=== PATIENT | male | born 1960 | race Caucasian/White ===

== ENCOUNTER 2019-10-10 07:27 | Outpatient (CLI) | payer OTHER, SELFPAY ==
--- NOTE | ~2019-10-10 | MR_ITS ---
EXAMINATION: MR cervical spine wo con EXAM DATE: 10/10/2019 09:00 INDICATION: Right shoulder, arm pain. TECHNIQUE: Multi-sequential, multiplanar MR images of the cervical spine were obtained without contra st. Axial T2, axial T2 MERGE sequence. Sagittal T1, T2, T2 fat saturation images also obtained. Th ere is no prior study for comparison. FINDINGS: There is moderate disc disease C4-5 and 5-6 with reversal normal cervical doses at this le mirna. The vertebral body and disc heights are otherwise well maintained. The vertebral bodies are alig christina in the AP dimension. There are no suspicious marrow signal abnormalities. The spinal cord signal intensity and intrinsic morphology is normal. Cervicomedullary junction is normal in appearance. Para spinal soft tissue is unremarkable. Level by level evaluation: C2-C3: Disc does not extend beyond the endplate margin. Uncovertebral joint arthropathy: None. Facet joint arthropathy: Mild left. Neural foraminal stenosis: No stenosis. Central canal stenosis: No stenosis. C3-C4: Disc does not extend beyond the endplate margin. Uncovertebral joint arthropathy: Mild bilateral. Facet joint arthropathy: Mild bilateral. Neural foraminal stenosis: Mild left. Central canal stenosis: No stenosis. C4-C5: There is a mild diffuse disc bulge. Uncovertebral joint arthropathy: Moderate bilateral. Facet joint arthropathy: Moderate bilateral. Neural foraminal stenosis: Moderate right, mild to moderate left. Central canal stenosis: Mild. C5-C6: There is a mild diffuse disc bulge. Uncovertebral joint arthropathy: Moderate right, mild to moderate left. Facet joint arthropathy: Mild to moderate bilateral. Neural foraminal stenosis: Moderate right, mild to moderate left. Central canal stenosis: Mild. C6-C7: There is a mild diffuse disc bulge. Uncovertebral joint arthropathy: Mild to moderate left, mild right. Facet joint arthropathy: Mild bilateral. Neural foraminal stenosis: No stenosis. Central canal stenosis: No stenosis. C7-T1: Disc does not extend beyond the endplate margin. Uncovertebral joint arthropathy: Mild bilateral. Facet joint arthropathy: None. Neural foraminal stenosis: No stenosis. Central canal stenosis: No stenosis. IMPRESSION: 1. Moderate midcervical spondylosis. Reviewed, dictated and finalized at location A.
--- NOTE | ~2019-10-10 | XR_ITS ---
XR foot RT min 3V DATE: 10/10/2019 07:50 INDICATION: Right foot pain. Great toe pain. TECHNIQUE: 4 views COMPARISON: 10/24/2018 right great toe 07/25/2009 right ankle FINDINGS: There is old healed fracture of the distal fibular diametaphysis. There is an old healed av ulsion fracture of the proximal phalange of the great toe. Plantar and posterior calcaneal enthesopathy. Chronic dorsal avulsion fracture of the cuneiform area, not present on 07/25/2009. Prominent degenerative changes at the tarsal and tarsometatarsal joints, particularly the second and third tarsometatarsal joints. No recent fracture or dislocation, periosteal reaction or bone destruction is noted otherwise. IMPRESSION: Old distal fibular and first proximal phalanx fractures. Chronic dorsal avulsion fracture of the tarsal area Prominent degenerative changes of the tarsal and tarsometatarsal joints Plantar and posterior calcaneal enthesopathy Reviewed, dictated and finalized at location A. IMPRESSION: Old distal fibular and first proximal phalanx fractures. Chronic do rsal avulsion fracture of the tarsal area Prominent degenerative changes of the tarsal and tarsometatarsal joints Plantar and posterior calcaneal enthesopathy
== END 2019-10-10 07:28 | disposition home or self-care (01) ==
PROVIDERS: PCP Family Medicine; Visit Provider Family Medicine
DX: M47.22 Other spondylosis with radiculopathy, cervical region (principal); M77.31 Calcaneal spur, right foot
CPT/HCPCS: 72141; 73630

== ENCOUNTER 2019-11-28 22:00 | Emergency (ER) | payer OTHER, SELFPAY ==
--- NOTE | ~2019-11-28 | XR_ITS ---
EXAMINATION: XR foot RT min 3V EXAM DATE: 11/28/2019 22:37 INDICATION: Right foot pain, swelling. TECHNIQUE: Right foot dorsoplantar, lateral and oblique projections obtained and reviewed. Compariso n is made to prior examination from 10/10/2019 . FINDINGS: There is redemonstration of advanced degenerative changes centered at the second-fourth ta rsometatarsal joints without osseous erosions, reactive sclerosis, bony proliferation and soft tissue swelling. There is lateral subluxation of the second metatarsal base at the Lisfranc joint, new comp ared to last month. Appearance consistent with Charcot's joint, possibly related to old Lisfranc join t injury. There is swelling over the foot. Consider orthopedic consult. IMPRESSION: Advanced right mid foot arthritic change most consistent with Charcot's joint, and develo pment of second metatarsal lateral subluxation at the Lisfranc joint. Recommend orthopedic consult. Reviewed, dictated and finalized at location A. IMPRESSION: Advanced right mid foot arthritic change most consistent with Charc ot's joint, and development of second metatarsal lateral subluxation at the Lis franc joint. Recommend orthopedic consult.
[2019-11-28 22:03] VITALS: BP 135/90; PULSE 95; RESP 20; TEMP 36.7; O2SAT 98
--- NOTE | 2019-11-28 22:16 | ED.LOWEXIN ---
HPI - Extremity Injury (Lower) General Chief Complaint: Extremity Injury, Lower Stated Complaint: right foot swollen Time Seen by Provider: 11/28/19 22:08 History of Present Illness HPI Narrative: Pain and swelling in the right foot for the past 4 months. He has had swelling in that leg even further back. told it wa due to his vericose veins. Used to resolve with elevation, now becoming permanent and associated with pain in the foot. He has DM and moderate neuropathy in the feet. No trauma. No eryhtema or wound. Related Data Home Medications Medication Instructions Recorded Confirmed aspirin 81 mg tablet,delayed 81 mg PO DAILY 08/02/19 release insulin detemir U-100 100 unit/mL 80 unit SUB-Q DAILY ml 08/02/19 (3 mL) subcutaneous pen lisinopril 5 mg tablet 5 mg PO DAILY 08/02/19 pantoprazole 40 mg tablet,delayed 40 mg PO QAM 08/02/19 release Allergies Allergy/AdvReac Type Severity Reaction Status Date / Time amoxicillin Allergy Unknown Nausea Verified 10/06/19 10:10 Review of Systems Review of Systems: All systems reviewed & are unremarkable except as noted in HPI and below Constitutional: Constitutional: Denies fever(s) Cardiovascular: Cardiovascular: Denies chest pain Respiratory: Respiratory: Denies dyspnea Neurologic: Denies dizziness, Denies numbness and Denies weakness [facility] Past Medical History Medical History Breathing-related sleep disorder Charcot foot due to diabetes mellitus Degenerative arthritis of cervical spine Foot fracture, left Knee osteoarthritis Left ventricular hypertrophy Surgical History Surgical History History of tonsillectomy Family History Family History Mother Diabetes mellitus, Onset Age: 80 Pancreatic cancer Father Family history of cardiovascular disease, Onset Age: 62 Carcinoma of colon Malignant neoplasm of prostate Hypertension Family history of obesity COPD (chronic obstructive pulmonary disease) Sibling Family history of obesity Malignant neoplasm of prostate Family history of diabetes mellitus in first degree relative Family history of heart disease in male family member before age 55 Grandparent Malignant neoplasm of prostate Social History Social History Smoking status: Former smoker Smoking end date: 07/07/96 Alcohol intake: current Exam Const: General: healthy appearing, no acute distress and alert Orientation/consciousness: patient oriented x3 HENMT: Head: normal to inspection Resp: Effort & Inspection: normal respiratory effort Auscultation: clear to auscultation bilaterally, no rales, no rhonchi and no wheezes Cardio: Jugular venous distension: no JVD Rate: regular rate Rhythm: regular rhythm Skin: General skin exam: normal color Rashes: no rashes Wounds: no wounds Neuro: General: patient oriented x3 and moves all extremities Speech: normal speech Extrem: General: edema right Other: Tenderness and swelling of the left foot. Psych: Appearance: well kempt Affect: normal affect Course Vital Signs Vital signs: Vital Signs Temperature 36.7 C 11/28/19 22:03 Pulse Rate 95 11/28/19 22:03 Respiratory Rate 20 11/28/19 22:03 Blood Pressure 135/90 11/28/19 22:03 Pulse Oximetry 98 11/28/19 22:03 Temperature 36.7 C 11/28/19 22:03 Pulse Rate 92 11/29/19 00:59 Respiratory Rate 20 11/29/19 00:59 Blood Pressure 122/71 11/29/19 00:59 Pulse Oximetry 97 11/29/19 00:59 MDM - Extremity Injury (Lower) MDM Narrative Medical decision making narrative: Case discussed with Dr. Guevara. He feels that the patient is in the acute phase of charcot's foot. He believes that he will need to be placed in a walking boot. Recommends PCP referal after discharge. Me
[2019-11-28 23:06] LABS: Basophils Percent Auto 0.2 % (0.2-1.2); Eosinophils Absolute Auto 0.2 K/mm3 (0-0.3); Eosinophils Percent Auto 4.1 % (0-4.4); Hematocrit 32.3 % (42.0-52.0); Hemoglobin 10.9 g/dL (14.0-18.0); Immature Granulocyte Absolute 0.01 K/mm3 (0.00-0.031); Immature Granulocyte Percent A 0.2 % (0-0.5); Lymphocytes Absolute Auto 1.04 K/mm3 (0.9-3.2); Lymphocytes Percent Auto 22.2 % (18.3-44.2); Mean Corpuscular HGB Conc 33.7 g/dl (32-36); Mean Corpuscular Hemoglobin 31.7 pg (26-34); Mean Corpuscular Volume 93.9 fl (80-100); Mean Platelet Volume 10.6 fl (7.4-10.4); Monocytes Absolute Auto 0.3 K/mm3 (0.1-0.6); Monocytes Percent Auto 7.3 % (2.6-8.5); Neutrophils Absolute Auto 3.1 K/mm3 (1.3-6.7); Platelet Count Result 215 k/mm3 (150-375); Red Blood Count 3.44 M/mm3 (4.6-6.20); Red Cell Distribution Width 13.2 % (11.5-14.5); White Blood Count 4.7 K/mm3 (4.5-10.0)
[2019-11-28 23:23] LABS: Blood Urea Nitrogen 22 mg/dL (9-20); CRP 2.8 mg/dL (<1.0); Calcium 8.6 mg/dL (8.4-10.2); Carbon Dioxide 29 mmol/L (22-30); Chloride 101 mmol/L (98-107); Estimated Glomerular Filt Rate > 60; Glucose 188 mg/dL (75-110); Potassium 4.2 mmol/L (3.4-5.0); Sodium 137 mmol/L (137-145)
[2019-11-28 23:32] LABS: Erythrocyte Sedimentation Rate 80 mm/hr (0-20)
[2019-11-29 00:59] VITALS: BP 122/71; PULSE 92; RESP 20; O2SAT 97
--- NOTE | 2019-11-29 01:00 | PC.NURSE ---
PT REFUSED POST OP SHOES. STATES HE HAS A BOOT AT HOME. DR NEW NOTIFIED
== END 2019-11-29 01:01 | disposition home or self-care (01) ==
PROVIDERS: Emergency Provider Emergency Medicine; PCP Family Medicine
DX: E11.610 Type 2 diabetes mellitus with diabetic neuropathic arthropathy (principal); E11.42 Type 2 diabetes mellitus with diabetic polyneuropathy; Z79.4 Long term (current) use of insulin; Z79.82 Long term (current) use of aspirin; M17.10 Unilateral primary osteoarthritis, unspecified knee; Z87.891 Personal history of nicotine dependence
CPT/HCPCS: 36415; 73630; 80048; 85025; 85652; 86140; 99283

== ENCOUNTER 2019-12-08 16:36 | Observation (INO) | payer OTHER, SELFPAY ==
[2019-12-08] VITALS (7 sets, daily range): BP systolic 76–112; BP diastolic 42–69; PULSE 89–101; RESP 18–20; TEMP 35.8–36.7; O2SAT 96–99; BMI 44.8
--- NOTE | ~2019-12-08 | CT_ITS ---
EXAMINATION: CT brain wo con EXAM DATE: 12/08/2019 18:37 INDICATION: Vertigo. Acute renal failure. TECHNIQUE: Spiral CT of the head was performed without contrast. Axial, coronal and sagittal images were reviewed. The dose-length product (DLP) for this examination was 605.33 mGy-cm. The exposure w as tailored according to patient size, and iterative reconstruction (ASIR) was used as additional dos e reduction technique. There is no prior study for comparison. FINDINGS: There is no acute intraparenchymal hemorrhage. No evidence of intraparenchymal brain mass lesion. No evidence of acute infarction. There is no mass effect or midline shift. The ventricles are normal in size. There are no extra-axial collections. There are no acute calvarial fractures. T he orbits are unremarkable. Soft tissue is unremarkable. The visualized sinuses and mastoid air rabia ls are well aerated. IMPRESSION: 1. Unremarkable head CT examination. Reviewed, dictated and finalized at location A.
--- NOTE | ~2019-12-08 | XR_ITS ---
EXAMINATION: XR chest 2V EXAM DATE: 12/08/2019 17:55 INDICATION: Dizziness, low blood pressure. History of diabetes. TECHNIQUE: Frontal and lateral projections of the chest obtained and reviewed. Comparison is made to prior examination from 09/29/2017. FINDINGS: The lungs are clear. There are no pleural effusions. The cardiomediastinal silhouette is within normal limits. There is no pneumothorax suspected. Mild thoracic scoliosis. IMPRESSION: No acute cardiopulmonary findings. Reviewed, dictated and finalized at location A.
--- NOTE | ~2019-12-08 | CT_ITS ---
EXAMINATION: CT abdomen pelvis wo con EXAM DATE: 12/08/2019 18:37 INDICATION: Acute renal failure. TECHNIQUE: Spiral CT of the abdomen and pelvis was performed without contrast. Axial, coronal and sag ittal images were reviewed. The dose-length product (DLP) for this examination was 1436.71 mGy-cm. The exposure was tailored according to patient size (auto mA exposure control), and iterative reconst ruction (ASIR) was used as additional dose reduction technique. Comparison is made to prior examinati on from 08/26/2013. FINDINGS: There is no nephrolithiasis or hydronephrosis. The prostate is unremarkable. The bladder is unremarkable. The liver, spleen, adrenal glands and pancreas are unremarkable. Gallbladder is u nremarkable. No biliary obstruction. There is no retroperitoneal or pelvic lymphadenopathy. There is mild scattered arteriosclerotic disease. Malrotation/nonrotation spectrum with the colon on the left side of the abdomen and the small bowel o n the right. The appendix is normal. The stomach and small bowel are unremarkable. There is expecte d amount of colonic stool. No free intraperitoneal gas. The heart is normal in size. There are n o pericardial or pleural effusions. The lung bases are unremarkable. Mild chronic compression fract ure of the L3 vertebral body at the superior endplate. Moderate to severe disc disease at L1-2, moder ate at L2-3. IMPRESSION: 1. Unremarkable genitourinary system. 2. Congenital bowel malrotation/nonrotation. Reviewed, dictated and finalized at location A.
--- NOTE | 2019-12-08 17:43 | ECG_ITS ---
Measurements Intervals Cammal Rate: 89 P: 35 VA: 148 QRS: -43 QRSD: 113 T: 50 QT: 342 QTc: 417 Interpretive Statements SINUS RHYTHM LEFT AXIS DEVIATION INTRAVENTRICULAR CONDUCTION DELAY BORDERLINE R WAVE PROGRESSION, ANTERIOR LEADS BORDERLINE ECG Electronically Signed On 12-09-2019 6:54:50 CDT by Anthony Mckeon D.O.
[2019-12-08] MEDS: SODIUM CHLORIDE 0.9% IV 1,000 ML 999 ML IV CONT ×2 (17:59→18:53)
[2019-12-08 18:06] LABS: Basophils Percent Auto 0.3 % (0.2-1.2); Eosinophils Absolute Auto 0.2 K/mm3 (0-0.3); Hematocrit 34.3 % (42.0-52.0); Hemoglobin 11.5 g/dL (14.0-18.0); Immature Granulocyte Absolute 0.02 K/mm3 (0.00-0.031); Immature Granulocyte Percent A 0.3 % (0-0.5); Lymphocytes Absolute Auto 1.21 K/mm3 (0.9-3.2); Lymphocytes Percent Auto 16.7 % (18.3-44.2); Mean Corpuscular HGB Conc 33.5 g/dl (32-36); Mean Corpuscular Hemoglobin 31.6 pg (26-34); Mean Corpuscular Volume 94.2 fl (80-100); Mean Platelet Volume 11.2 fl (7.4-10.4); Monocytes Absolute Auto 0.6 K/mm3 (0.1-0.6); Monocytes Percent Auto 7.7 % (2.6-8.5); Neutrophils Absolute Auto 5.2 K/mm3 (1.3-6.7); Platelet Count Result 264 k/mm3 (150-375); Red Blood Count 3.64 M/mm3 (4.6-6.20); Red Cell Distribution Width 13.3 % (11.5-14.5); White Blood Count 7.2 K/mm3 (4.5-10.0)
--- NOTE | 2019-12-08 18:07 | ED.DIZZY ---
HPI - Dizziness General Chief Complaint: Dizziness <Opal Landin MD - Last Filed: 12/10/19 19:00> Stated Complaint: N/V - Dizzy <Opal Landin MD - Last Filed: 12/10/19 19:00> Time Seen by Provider: 12/08/19 17:54 <Opal Landin MD - Last Filed: 12/10/19 19:00> History of Present Illness HPI Narrative: Patient presents with his daughter for many episodes of dizziness today some associated with nausea and vomiting. He has a history of migraines in the last 3 years, but does not have a headache today. The dizziness is as if there is motion, but also lightheadedness. 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 He tried a fish sandwich for lunch, which did not help. He also has been light sensitive today wearing sunglasses, and feeling like the light was blinding outdoors. He is diabetic and he checked his sugar earlier it was 240. He is suffering from a Charcot foot, and is followed by a foot doctor here at [place]. He is on gabapentin for the pain, yet the pain is 7 out of 10. He has never had trouble with his blood pressure, but today the blood pressure was on the low side. <Opal Landin MD - Last Filed: 12/10/19 19:00> MD elicited complaint: dizziness, lightheadedness and vertigo <Opal Landin MD - Last Filed: 12/10/19 19:00> Pertinent past history: other (None) <Opal Landin MD - Last Filed: 12/10/19 19:00> Onset (ago): hour(s) <Opal Landin MD - Last Filed: 12/10/19 19:00> Timing: awoke with symptoms <Opal Landin MD - Last Filed: 12/10/19 19:00> Severity: moderate <Opal Landin MD - Last Filed: 12/10/19 19:00> Description: sense of movement, room spinning , lightheadedness and off-balance <Opal Landin MD - Last Filed: 12/10/19 19:00> Context: at rest <Opal Landin MD - Last Filed: 12/10/19 19:00> History of similar symptoms: No <Opal Landin MD - Last Filed: 12/10/19 19:00> Exacerbating factors: movement/ambulation <Opal Landin MD - Last Filed: 12/10/19 19:00> Relieving factors: nothing <Opal Landin MD - Last Filed: 12/10/19 19:00> Associated symptoms: nausea and vomiting <Opal Landin MD - Last Filed: 12/10/19 19:00> Associated neuro symptoms: vision changes <Opal Landin MD - Last Filed: 12/10/19 19:00> Related Data Home Medications: Home Medications Medication Instructions Recorded Confirmed insulin detemir U-100 100 unit/mL See Rx Instructions .ROUTE 08/02/19 12/08/19 (3 mL) subcutaneous pen .COMPLEX ml pantoprazole 40 mg tablet,delayed 40 mg PO QAM 08/02/19 12/08/19 release <Opal Landin MD - Last Filed: 12/10/19 19:00> Allergies/Adverse Reactions: Allergies Allergy/AdvReac Type Severity Reaction Status Date / Time amoxicillin AdvReac Unknown Nausea Verified 12/08/19 22:43 <Opal Landin MD - Last Filed: 12/10/19 19:00> Review of Systems Review of Systems: Narrative: CONSTITUTIONAL: Denies fever, chills, or sweats. EYES: Denies redness, or discharge. Does have photophobia, and visual changes. ENT: Denies rhinorrhea, congestion, sore throat, or otalgia. CARDIOVASCULAR: Denies chest pain, palpitations, or edema. RESPIRATORY: Denies cough or dyspnea. GASTROINTESTINAL: Denies abdominal pain, nausea, vomiting, or diarrhea. GENITOURINARY: Denies dysuria or hematuria. SKIN: Denies rash or itching. MUSCULOSKELETAL: Denies back pain, joint pain, or myalgia. He does have foot pain. NEUROLOGIC: Denies headache, numbness, or weakness. PSYCHIATRIC: Denies anxiety or depression. <Opal Landin MD - Last Filed: 12/10/19 19:00> PMFSH Past Medical History Medical History: Medical History Anemia Charcot foot due to diabetes mellitus Charcot's joint arthropathy in type 2 diabetes mellitus Degenerative arthritis of cervical spine On diclofenac Diabetic autonomic neuropathy as
[2019-12-08 18:17] LABS: Alanine Aminotransferase 14 U/L (4-50); Albumin Level 4.8 g/dL (3.5-5.1); Alkaline Phosphatase 116 U/L (38-126); Aspartate Amino Transferase 21 U/L (17-59); Bilirubin,Total 0.4 mg/dL (0.2-1.3); Blood Urea Nitrogen 61 mg/dL (9-20); Calcium 9.5 mg/dL (8.4-10.2); Carbon Dioxide 22 mmol/L (22-30); Chloride 99 mmol/L (98-107); Estimated CRCL calculation 29 ml/min; Estimated Glomerular Filt Rate 19; Glucose 150 mg/dL (75-110); Potassium 5.9 mmol/L (3.4-5.0); Sodium 135 mmol/L (137-145)
[2019-12-08] MEDS: METOCLOPRAMIDE HCL INJ 10 MG/2 ML VIAL IV PUSH (18:21)
[2019-12-08 18:42] LABS: NT Pro B Type Natriuretic Pept 38 PG/ML (5-100); Troponin I < 0.012 ng/mL (0.000-0.034)
[2019-12-08 18:50] LABS: Blood Urea Nitrogen 61 mg/dL (9-20); Calcium 9.6 mg/dL (8.4-10.2); Carbon Dioxide 23 mmol/L (22-30); Chloride 99 mmol/L (98-107); Estimated CRCL calculation 29 ml/min; Estimated Glomerular Filt Rate 19; Glucose 154 mg/dL (75-110); Potassium 5.9 mmol/L (3.4-5.0); Sodium 134 mmol/L (137-145)
[2019-12-08 19:33] LABS: Blood Urea Nitrogen 59 mg/dL (9-20); Calcium 8.5 mg/dL (8.4-10.2); Carbon Dioxide 22 mmol/L (22-30); Chloride 102 mmol/L (98-107); Estimated CRCL calculation 30 ml/min; Estimated Glomerular Filt Rate 20; Glucose 155 mg/dL (75-110); Potassium 5.6 mmol/L (3.4-5.0); Sodium 134 mmol/L (137-145)
[2019-12-08] MEDS: SODIUM CHLORIDE 0.9% IV 1,000 ML 150 ML IV CONT (20:16)
[2019-12-08 20:17] LABS: Blood Urea Nitrogen 59 mg/dL (9-20); Calcium 8.8 mg/dL (8.4-10.2); Carbon Dioxide 22 mmol/L (22-30); Chloride 102 mmol/L (98-107); Estimated CRCL calculation 30 ml/min; Estimated Glomerular Filt Rate 20; Glucose 157 mg/dL (75-110); Potassium 5.6 mmol/L (3.4-5.0); Sodium 134 mmol/L (137-145)
--- NOTE | 2019-12-08 21:31 | ADMGEN ---
This patient, Neil Haines, was admitted to IMU Room 212-01. REPORT RECEIVED FROM ASIF VELARDE. Patient/family oriented to hospital policies and general routines including ID bracelet, bed and alarms, visiting hours, pain management, procedures, bathroom and other care routines, personal items, smoking policy, room service/diet, and visiting hours. Valuables list has been completed. Information on how to activate the Rapid Response Team has been discussed. Patient/Family are encouraged to report perceived risks to care and to ask questions if they do not understand what they are told or what they should do.
[2019-12-09] VITALS (11 sets, daily range): BP systolic 117–150; BP diastolic 48–94; PULSE 79–98; RESP 16–18; TEMP 35.7–36.6; O2SAT 96–99
--- NOTE | 2019-12-09 04:07 | PM.IMHP ---
H&P: HPI History of Present Illness Chief complaint: Dizziness Narrative: Date and time of patient contact: 12/09/2019 Neil Haines is a 59 year old male with a past medical history of diabetes mellitus on insulin therapy, hypertension, obstructive sleep apnea, and peripheral neuropathy who presented to the ER via private vehicle due to dizziness nausea and vomiting. He reported that the sensation of movement iin his head started on the morning of the . He has noticed lightheadedness even just with standing still. He has also notices blood pressure has been lower than usual. He reports that he felt fine on the . He does have Charcot joint and his right foot and complains of chronic pain. His pain is a 7/10 in intensity. He has been taking diclofenac and Neurontin for the pain. He also has been taken out [id number] arthritis pill twice a day for the last 3-4 weeks. He does not know the name of the [id number]-[id number] arthritis pill. He reports that he has still been urinating his usual amount. He has not noticed his urine being dark. He reports that he tries to stay well hydrated with 2 large cups of tea, water and soda. 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 He does still tend to sweat a lot. He denies any recent changes in his home medications. He denies any diarrhea, hematochezia, melena or changes in bowel habits. He has never had a colonoscopy. he does have obstructive sleep apnea and has been fighting with his insurance company to get a CPAP. His last sleep study within our system was July 2015 and recommended CPAP of 14. He denies any recent cough, congestion, fever, chills or recent contact with COVID-19 positive individuals. The patient's glucoses have been better controlled recently. He was started on Ozempic a couple of months ago. Since that time his overall insulin use has decreased. He has lost over 20 lb. Review of Systems Review of Systems: Narrative: 12 systems were reviewed with pertinent positives and negatives per HPI. Except as documented in the HPI, all other systems were reviewed and are negative. [facility] Past Medical History Medical History Anemia Charcot foot due to diabetes mellitus Charcot's joint arthropathy in type 2 diabetes mellitus Degenerative arthritis of cervical spine On diclofenac Diabetic autonomic neuropathy associated with type 2 diabetes mellitus Diabetic retinopathy associated with type 2 diabetes mellitus Foot fracture, left Hyponatremia Knee osteoarthritis Left ventricular hypertrophy Morbid obesity with BMI of 45.0-49.9, adult Obstructive sleep apnea Sleep study June 2015 recommended CPAP of 14 Other and unspecified hyperlipidemia Surgical History Surgical History H/O wisdom tooth extraction History of circumcision History of tonsillectomy Family History Family History Mother Diabetes mellitus, Onset Age: 80 Pancreatic cancer Father Carcinoma of colon Malignant neoplasm of prostate Hypertension COPD (chronic obstructive pulmonary disease) Cardiovascular disease Obesity Sibling Family history of obesity Malignant neoplasm of prostate Diabetes mellitus Cardiovascular disease Premature Grandparent Malignant neoplasm of prostate Social History Social History (Updated 12/09/19 @ 07:53 by Daphne Blevins DO) Social History: Primary care provider: Dr. Elias Montalvo Code status: Full code Advanced directives: None Smoking packs per day: 2 Smoking cigarettes per day: 40.0 Years smoked: 20 Smoking pack-years: 40.00 Smoking status: Former smoker Tobacco type: cigarettes Smoking end date: 12/05/97 Alcohol intake: current Drinks per week: 1 Alcohol use detail
[2019-12-09 05:00] LABS: Blood Urea Nitrogen 45 mg/dL (9-20); Calcium 8.4 mg/dL (8.4-10.2); Carbon Dioxide 24 mmol/L (22-30); Chloride 107 mmol/L (98-107); Estimated CRCL calculation 50 ml/min; Estimated Glomerular Filt Rate 37; Glucose 144 mg/dL (75-110); Potassium 5.2 mmol/L (3.4-5.0); Sodium 136 mmol/L (137-145)
[2019-12-09 06:46] LABS: Add Urine Microscopic? NO; Appearance Urine Clear (Clear); Bilirubin Urine Negative (Negative); Blood Urine Negative (Negative); Color Urine Straw (Yellow); Glucose Urine UA Negative (Negative); Ketones Urine Negative (Negative); Leukocyte Esterase Ur Negative LEU/UL (Negative); Nitrate Urine Negative (Negative); Protein Urine Negative (Negative); Specific Grav Ur 1.014 (1.001-1.035); Urobilinogen Urine Negative mg/dL (<2.0)
[2019-12-09 06:54] LABS: Creatinine Urine 67.1 mg/dL; Urea Random Urine 687 MG/DL
[2019-12-09 07:00] LABS: Potassium Urine Random 15.8 meq/L; Sodium Urine Random 127 meq/L
--- NOTE | 2019-12-09 07:27 | PM.CNNEP ---
Assessment and Plan Assessment and plan (1) Acute renal failure: Qualifiers: Acute renal failure type: unspecified Qualified Code(s): N17.9 - Acute kidney failure, unspecified Code(s): N17.9 - Acute kidney failure, unspecified Status: Acute Assessment and Plan: The patient has acute kidney injury. His creatinine was normal on 11/27 when he was in the emergency room for his Charcot foot. There are several issues that are related to his renal failure. The patient was dehydrated. His blood pressure was low. He is on diuretics as an outpatient and it has suddenly become much warmer outside. 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 Possibly he does not need as much diuretics in the summer is he does in the winter because of perspiration. In addition the patient was on diclofenac and also possibly another nonsteroidal anti-inflammatory agent that he purchased [id number]. This also may have added to the renal insufficiency. The patient does have diabetes and high blood pressure and so could have underlying mild FX of this on a long-term basis. Urine protein to creatinine ratio is pending. His urine sodium is not low, most likely due to the diuretics. At this point I would continue IV fluids. His creatinine is already a little bit better. He is off of his nonsteroidal anti-inflammatory agent. His metformin is on hold. This should remain on hold until his kidneys are better. His bicarbonate is normal and his anion gap is normal. (2) Acute hyperkalemia: Code(s): E87.5 - Hyperkalemia Status: Acute Assessment and Plan: Potassium is high most likely due to the renal failure and also the nonsteroidal anti-inflammatory agents. This is improving with hydration. (3) Acute hypotension: Code(s): I95.9 - Hypotension, unspecified Status: Acute Assessment and Plan: Blood pressure is low due to dehydration. Diuretics are on hold. (4) Anemia: Code(s): D64.9 - Anemia, unspecified Status: Acute Assessment and Plan: Hemoglobin is low. Depending on how long it is taken for his kidneys to get like this this smear may not be due to the kidneys. Will check iron levels. (5) Hyponatremia: Code(s): E87.1 - Hypo-osmolality and hyponatremia Status: Acute Assessment and Plan: Sodium level is low. This could be related to his dehydration. He is on duloxetine which can cause low sodium as well, however his sodium was normal in November and he was on duloxetine at the time.. We will follow this along as he gets hydrated. History of Present Illness Reason for Consult Consult date: 12/09/19 Chief Complaint Chief complaint: Dizziness History of Present Illness Narrative: Neil is a very pleasant 59-year-old gentleman who has multiple medical problems including diabetes,, sleep apnea, peripheral neuropathy, Scharff: Stooling to on the right, degenerative joint disease, left ventricular hypertrophy, morbid obesity, hyperlipidemia. The patient historically has had very poor control of his diabetes. His A1cs were as high as 12. He decided to take some insulin in the past few months and his A1c dropped to about 8. . Recently he changed from trulicity to ozempic and his sugars have improved quite a bit. He does have significant arthritis. He has been taking diclofenac. A few weeks ago the patient's brought home some mmuo-[id number] arthritis pills but he cannot remember the name of these. He started taking them and his arthritis has been a little bit better. Yesterday the patient woke up and felt lightheaded. There was no vertigo. He also had some nausea. He went to work without eating any breakfast. He had a couple of donuts mid morning but that did not make him feel better. The knee had a FISH sandwich from [employer] but that did not make him feel any better. In the middle of the afternoon he decided that he
[2019-12-09 07:39] LABS: Total Protein Urine Random 11 mg/dL
[2019-12-09 08:20] LABS: Glucose Point of Care 152 (65-105)
[2019-12-09] MEDS: SODIUM CHLORIDE 0.9% IV 1,000 ML 100 ML IV CONT ×2 (08:30→18:27)
[2019-12-09] MEDS: ATORVASTATIN 20 MG TABLET PO (08:40)
[2019-12-09] MEDS: PANTOPRAZOLE 40 MG TABLET PO (08:40)
[2019-12-09] MEDS: HEPARIN SODIUM 5,000 UNITS/ML VIAL 5000 UNITS SUB-Q ×2 (08:42→20:44)
[2019-12-09] MEDS: DULOXETINE 60 MG CAPSULE.DR PO (08:42)
[2019-12-09] MEDS: INSULIN ASPART (*BKC) 100 UNITS/ML 15 UNITS SUB-Q (08:51)
[2019-12-09 12:27] LABS: Glucose Point of Care 109 (65-105)
--- NOTE | 2019-12-09 16:21 | PM.IMPN ---
Progress Note: A&P Assessment and Plan (1) Acute renal failure: Qualifiers: Acute renal failure type: unspecified Qualified Code(s): N17.9 - Acute kidney failure, unspecified Code(s): N17.9 - Acute kidney failure, unspecified Status: Acute Assessment and Plan: Likely due to a combination of diuretic use, NSAID use (both prescribed and [id number]) and hypovolemia due to vomiting. Given that the patient has peripheral neuropathy and diabetic retinopathy would not be surprised to find that the patient had diabetic nephropathy. Continue IV fluid hydration. Creatinine this a.m. already down to 1.9, no obstruction or renal problems seen on CT. Continue holding the patient's home metformin, Ozempic, lisinopril, diclofenac and Lasix. (2) Acute hyperkalemia: Code(s): E87.5 - Hyperkalemia Status: Acute Assessment and Plan: Due to decreased potassium excretion. Patient has been placed on a low-potassium diet. Potassium has trended down with simple IV fluid hydration. Potassium 5.2 this a.m.. (3) Diabetes mellitus with complication: Code(s): E11.8 - Type 2 diabetes mellitus with unspecified complications Status: Acute Assessment and Plan: The patient's home metformin, and Ozempic happen placed on hold. Will continue Levemir, mealtime bolus insulin and will add moderate dose sliding scale insulin and Accu-Cheks a.c. HS. The patient's glucoses appear to be well controlled since presentation. And A1c. 7.0 (4) DVT prophylaxis: Code(s): Z29.9 - Encounter for prophylactic measures, unspecified Status: Acute Assessment and Plan: Subcu heparin with renal failure Subjective Date/time seen: 12/09/19 16:21 Interval history: Date of visit 12/08. 59-year-old hypertensive type 2 diabetic admitted and acute renal failure with hyperkalemia. Been taking diuretics and nonsteroidals. States feels better this a.m. with no nausea shortness of breath cough. Exam Narrative: Exam Narrative: Blood pressure 130/60 pulse is 86 saturating 98% on room air afebrile Lungs clear CV regular rate rhythm no murmurs Abdomen soft nontender Extremities trace edema 1+ distal pulses Neuro alert pleasant cooperative no focal deficits Objective Data Vital Signs Vital Signs: Vital Signs - 24 hr 12/08/19 16:40 12/08/19 18:40 12/08/19 18:41 Temperature 36.7 C Pulse Rate 100 92 101 H Respiratory Rate 18 20 20 Blood Pressure 96/69 L 93/52 L 76/55 L Pulse Oximetry 98 99 99 12/08/19 19:44 12/08/19 21:00 12/08/19 21:14 Temperature 35.8 C L Pulse Rate 89 97 Respiratory Rate 18 Blood Pressure 101/42 L 104/51 L Pulse Oximetry 98 12/08/19 23:27 12/09/19 00:00 12/09/19 04:02 Temperature 36.2 C L Pulse Rate 89 85 84 Respiratory Rate 18 Blood Pressure 112/48 L Pulse Oximetry 96 12/09/19 04:09 12/09/19 06:00 12/09/19 08:00 Temperature 36.1 C L 35.7 C L Pulse Rate 79 85 84 Respiratory Rate 18 16 Blood Pressure 117/48 L 129/60 Pulse Oximetry 96 98 12/09/19 10:00 12/09/19 12:00 12/09/19 14:00 Temperature Pulse Rate 95 79 98 Respiratory Rate Blood Pressure Pulse Oximetry Intake/Output Intake/Output: Intake & Output 12/06/19 12/07/19 12/08/19 12/09/19 23:59 23:59 23:59 23:59 Intake Total 1999 1779 Output Total 225 2100 Balance 1775 -320 Meds/Results Medications: Active Medications Generic Name Dose Route Start Last Admin Trade Name Freq PRN Reason Stop Dose Admin Acetaminophen 650 mg 12/08/19 19:20 Tylenol Tablet PO Q4H PRN Mild Pain (1-3) or Fever Atorvastatin Calcium 20 mg 12/09/19 09:00 12/09/19 08:40 Lipitor PO 20 mg DAILY NOLA Administration Dextrose 12.5 gm 12/09/19 03:59 Dextrose 50% Syringe IV PUSH PRN PRN Hypoglycemia Protocol Duloxetine HCl 60 mg 12/09/19 09:00 12/09/19 08:42 Cymbalta PO 60 mg DAILY NOLA Admin
[2019-12-09 17:33] LABS: Glucose Point of Care 176 (65-105)
[2019-12-09 19:05] LABS: Glucose Point of Care 189 (65-105)
[2019-12-09] MEDS: INSULIN DETEMIR 100 UNITS/ML 15 UNITS SUB-Q (20:44)
--- NOTE | 2019-12-09 20:45 | PC.NURSE ---
Pt's blood glucose 231. Administered Levemir per MD order. Pt states he does not take more than 15 units of insulin at a time. Pt states that even though the Levemir is long acting, he does not want to take additional Novolog if ordered by physician this evening.
[2019-12-09 21:23] LABS: Glucose Point of Care 231 (65-105)
[2019-12-09] MEDS: TRAZODONE HCL 50 MG TABLET 150 MG PO (22:56)
[2019-12-10] VITALS: BP 127/73; PULSE 95; RESP 18; TEMP 36.3; O2SAT 99
[2019-12-10 02:50] LABS: Glucose Point of Care 162 (65-105)
[2019-12-10 03:54] VITALS: BP 109/65; PULSE 91; RESP 18; TEMP 36.2; O2SAT 97
[2019-12-10] MEDS: SODIUM CHLORIDE 0.9% IV 1,000 ML 100 ML IV CONT (04:00)
[2019-12-10 04:54] LABS: Albumin Level 3.7 g/dL (3.5-5.1); Blood Urea Nitrogen 19 mg/dL (9-20); Calcium 8.8 mg/dL (8.4-10.2); Carbon Dioxide 26 mmol/L (22-30); Chloride 104 mmol/L (98-107); Estimated CRCL calculation 92 ml/min; Estimated Glomerular Filt Rate > 60; Glucose 168 mg/dL (75-110); Phosphorus 3.2 mg/dL (2.5-4.5); Potassium 5.7 mmol/L (3.4-5.0); Sodium 136 mmol/L (137-145)
[2019-12-10 08:00] VITALS: BP 129/63; PULSE 94; RESP 20; TEMP 36.6; O2SAT 98
[2019-12-10 08:36] LABS: Glucose Point of Care 183 (65-105)
[2019-12-10] MEDS: SODIUM POLYSTYRENE SULFONONATE 15 GM/60 ML BTL PO ×2 (08:50→15:19)
[2019-12-10] MEDS: DULOXETINE 60 MG CAPSULE.DR PO (08:51)
[2019-12-10] MEDS: PANTOPRAZOLE 40 MG TABLET PO (08:51)
[2019-12-10] MEDS: ATORVASTATIN 20 MG TABLET PO (08:51)
[2019-12-10] MEDS: HEPARIN SODIUM 5,000 UNITS/ML VIAL 5000 UNITS SUB-Q (08:54)
[2019-12-10] MEDS: INSULIN ASPART (*BKC) 100 UNITS/ML 15 UNITS SUB-Q ×2 (08:56→12:37)
--- NOTE | 2019-12-10 11:37 | PM.PNNEP ---
Progress Note: A&P Assessment and Plan (1) Acute renal failure: Qualifiers: Acute renal failure type: unspecified Qualified Code(s): N17.9 - Acute kidney failure, unspecified Code(s): N17.9 - Acute kidney failure, unspecified Status: Acute Assessment and Plan: The patient has acute kidney injury. Urine electrolytes are Non pre renal. CT shows no evidence of obstruction. This has rapidly improved. There are several factors causing his renal failure. 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 He was of course on diclofenac and in a over the counter nonsteroidal anti-inflammatory agent. I think he ought to stay off the nonsteroidal anti-inflammatory agents. If he takes Lasix he should only take it as needed for swelling instead of taking it every day. (2) Acute hyperkalemia: Code(s): E87.5 - Hyperkalemia Status: Acute Assessment and Plan: Potassium is a little high today. He received Kayexalate and we can repeat. He should get blood work on Friday. (3) Acute hypotension: Code(s): I95.9 - Hypotension, unspecified Status: Acute Assessment and Plan: Blood pressure is back up. (4) Anemia: Code(s): D64.9 - Anemia, unspecified Status: Acute Assessment and Plan: Hemoglobin is low. Depending on how long it is taken for his kidneys to get like this this smear may not be due to the kidneys. Hemoglobin improving. (5) Hyponatremia: Code(s): E87.1 - Hypo-osmolality and hyponatremia Status: Acute Assessment and Plan: Sodium level is low. This could be related to his dehydration. And diuretics. The level is improving. Subjective Date/time seen: 12/10/19 11:37 Interval history: Patient is alert. He feels better. He says that he is on Lasix because his feet swell at times. 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 Review of Systems Cardiovascular: Cardiovascular: Reports no additional cardiovascular complaints Respiratory: Respiratory: Reports no additional respiratory complaints Gastrointestinal: Gastrointestinal: Reports no additional gastrointestinal complaints Genitourinary: Genitourinary: Reports no additional male genitourinary complaints Exam Narrative: Exam Narrative: WDWN in NAD skin no rash head ncat lungs clear cor reg no rub abd BS+ nontender and soft ext no edema. Objective Data Vital Signs Vital Signs: Vital Signs - 24 hr 12/09/19 12:00 12/09/19 14:00 12/09/19 16:00 Temperature 36.6 C Pulse Rate 79 98 98 Respiratory Rate 18 Blood Pressure 150/94 H Pulse Oximetry 98 12/09/19 18:00 12/09/19 19:53 12/10/19 00:00 Temperature 36.2 C L 36.3 C L Pulse Rate 94 93 95 Respiratory Rate 18 18 Blood Pressure 119/58 L 127/73 Pulse Oximetry 99 99 12/10/19 03:54 12/10/19 08:00 Temperature 36.2 C L 36.6 C Pulse Rate 91 94 Respiratory Rate 18 20 Blood Pressure 109/65 129/63 Pulse Oximetry 97 98 Intake/Output Intake/Output: Intake & Output 12/07/19 12/08/19 12/09/19 12/10/19 23:59 23:59 23:59 23:59 Intake Total 1999 4654 1740 Output Total 225 2800 3450 Balance 1775 1870 -1710 Meds/Results Medications: Active Medications Generic Name Dose Route Start Last Admin Trade Name Freq PRN Reason Stop Dose Admin Acetaminophen 650 mg 12/08/19 19:20 Tylenol Tablet PO Q4H PRN Mild Pain (1-3) or Fever Atorvastatin Calcium 20 mg 12/09/19 09:00 12/10/19 08:51 Lipitor PO 20 mg DAILY NOLA Administration Dextrose 12.5 gm 12/09/19 03:59 Dextrose 50% Syringe IV PUSH PRN PRN Hypoglycemia Protocol Duloxetine HCl 60 mg 12/09/19 09:00 12/10/19 08:51 Cymbalta PO 60 mg DAILY NOLA Administration Glucagon 1 mg 12/09/19 03:59 Glucagon For Inj IM PRN PRN Hypoglycemia Protocol Glu
[2019-12-10 12:20] LABS: Glucose Point of Care 180 (65-105)
[2019-12-10 14:05] LABS: Blood Urea Nitrogen 15 mg/dL (9-20); Calcium 8.7 mg/dL (8.4-10.2); Carbon Dioxide 27 mmol/L (22-30); Chloride 101 mmol/L (98-107); Estimated CRCL calculation 101 ml/min; Estimated Glomerular Filt Rate > 60; Glucose 196 mg/dL (75-110); Potassium 5.4 mmol/L (3.4-5.0); Sodium 134 mmol/L (137-145)
--- NOTE | 2019-12-10 15:59 | PC.NURSE ---
Discharge instructions reviewed in detail with patient including outpatient labwork and follow up with PCP. Pt. verbalized understanding, no questions at this time.
--- NOTE | 2019-12-11 18:34 | PM.DS ---
DS: Admitting Diagnosis Admitting Diagnosis Admitting Diagnosis: Acute kidney failure, unspecified DS: Discharge Diagnosis Discharge Diagnosis (1) Acute renal failure: Qualifiers: Acute renal failure type: unspecified Qualified Code(s): N17.9 - Acute kidney failure, unspecified Code(s): N17.9 - Acute kidney failure, unspecified Status: Acute Assessment and Plan: Likely due to a combination of diuretic use, NSAID use (both prescribed and [id number]) and hypovolemia due to vomiting. Given that the patient has peripheral neuropathy and diabetic retinopathy would not be surprised to find that the patient had diabetic nephropathy. Creatinine this a.m. already down to 0.9 at discharge, no obstruction or renal problems seen on CT. Continue holding the patient's lisinopril and diclofenac on discharge Resume Lasix and metformin (2) Acute hyperkalemia: Code(s): E87.5 - Hyperkalemia Status: Acute Assessment and Plan: Due to decreased potassium excretion. Patient has been placed on a low-potassium diet. Potassium has trended down with simple IV fluid hydration. Date of discharge potassium up to 5.7 was given Kayexalate and decreased to 5.4. Was given another dose Kayexalate and able to be discharged home off his MIKE-inhibitor. Will resume his diuretic Lasix daily and have a basic metabolic profile drawn on the (3) Diabetes mellitus with complication: Code(s): E11.8 - Type 2 diabetes mellitus with unspecified complications Status: Acute Assessment and Plan: The patient's home metformin, and Ozempic happen placed on hold while inpatient but restarted on discharge. Will continue Levemir, mealtime bolus insulin as before The patient's glucoses appear to be well controlled since presentation. And A1c. 7.0 (4) DVT prophylaxis: Code(s): Z29.9 - Encounter for prophylactic measures, unspecified Status: Acute Assessment and Plan: Subcu heparin with renal failure while an inpatient DS: Summary Hospital Course Hospital Course: 59-year-old hypertensive type 2 diabetic admitted with dehydration acute renal failure. Was hydrated aggressively with holding off his metformin, nonsteroidal anti-inflammatories, and MIKE-inhibitor. On at regime his creatinine fell to 0.9 the day of discharge. Potassium still mildly elevated 5.4 and MIKE-inhibitor will be continued to be held with resumption of his Lasix. He will have basic metabolic profile drawn on the 8th. Seen by Nephrology while here Medications will be the same without the diclofenac and MIKE-inhibitor with the persistently elevated potassium Time Spent with Patient Time attestation: Total time spent providing and/or coordinating discharge services: 35 minutes Exam Narrative: Exam Narrative: Condition on discharge Blood pressure 130/62 pulse is 94 sat and 98% on room air afebrile Lungs clear CV regular rate rhythm Abdomen is soft nontender Extremities without edema with exception of mild swelling around the right ankle which has been chronic Neuro alert pleasant cooperative no focal deficits Discharge Plan Discharge Attending physician on discharge: Ab Noonan Consulting providers: Terry Chavez Discharging Clinician: Ab Noonan Patient Disposition: Home, Self-Care Activity: as tolerated Diet: diabetic Patient Instructions: Antibiotic Form, Hyperkalemia (DC), End Stage Kidney Disease (ED) Stand Alone Forms: General Discharge Information Follow-up/Referrals: Elias Montalvo MD [Primary Care Provider] - 1 Week Discharge Medications: Continued pantoprazole [Protonix] 40 mg tablet,delayed release (DR/EC) 40 mg PO QAM RF: 0 Levemir FlexTouch U-100 Insuln 100 unit/mL (3 mL) insulin pen See Rx Instructions .ROUTE .COMPLEX RF: 0 duloxetine [Cymbalta] 60 mg capsule,delayed release(DR/EC) 60 mg PO DAILY Qty: 90 RF: 1 Oz
[2019-12-12 04:35] LABS: Osmolality, Urine 532 mOsm/kg (50-1200)
== END 2019-12-10 16:20 | disposition home or self-care (01) ==
LOC: ANHED 19:50 → ANHIMU 23:50
PROVIDERS: Internal Medicine; Internal Medicine Nephrology; Physician Assistant; Admitting Provider Family Medicine; Emergency Provider Emergency Medicine; PCP Family Medicine; Visit Provider Internal Medicine
DX: N17.9 Acute kidney failure, unspecified (principal); E87.5 Hyperkalemia; E87.1 Hypo-osmolality and hyponatremia; E86.0 Dehydration; I95.9 Hypotension, unspecified; I11.9 Hypertensive heart disease without heart failure; E11.43 Type 2 diabetes mellitus with diabetic autonomic (poly)neuropathy; E11.319 Type 2 diabetes mellitus with unspecified diabetic retinopathy without macular edema; E11.610 Type 2 diabetes mellitus with diabetic neuropathic arthropathy; D64.9 Anemia, unspecified; G47.33 Obstructive sleep apnea (adult) (pediatric); E66.01 Morbid (severe) obesity due to excess calories; Z68.41 Body mass index [BMI] 40.0-44.9, adult; M19.90 Unspecified osteoarthritis, unspecified site; E78.49 Other hyperlipidemia; Z79.1 Long term (current) use of non-steroidal anti-inflammatories (NSAID); Z79.4 Long term (current) use of insulin; Z79.899 Other long term (current) drug therapy; Z87.891 Personal history of nicotine dependence
CPT/HCPCS: 36415; 70450; 71046; 74176; 80048; 80053; 80069; 81003; 81050; 82570; 83036; 83880; 83935; 84133; 84156; 84300; 84484; 84540; 85025; 93005; 96360; 96361; 96372; 96374; 96375; 99285; A9270; G0378; J1200; J1644; J1815; J2765; J7030

== ENCOUNTER 2019-12-13 13:01 | Outpatient (CLI) | payer OTHER, SELFPAY ==
[2019-12-13 13:53] LABS: Blood Urea Nitrogen 18 mg/dL (9-20); Calcium 9.3 mg/dL (8.4-10.2); Carbon Dioxide 31 mmol/L (22-30); Chloride 100 mmol/L (98-107); Estimated Glomerular Filt Rate > 60; Glucose 146 mg/dL (75-110); Potassium 4.8 mmol/L (3.4-5.0); Sodium 136 mmol/L (137-145)
== END 2019-12-13 13:02 | disposition home or self-care (01) ==
PROVIDERS: PCP Family Medicine; Referring Provider Family Medicine; Visit Provider Internal Medicine
DX: E87.5 Hyperkalemia (principal)
CPT/HCPCS: 36415; 80048

== ENCOUNTER 2020-01-14 09:11 | Outpatient (RCR) | payer OTHER, SELFPAY ==
[2020-01-14 09:00] VITALS: BMI 43.8
--- NOTE | 2020-01-14 09:59 | PM.PNORT ---
Progress Note: A&P Assessment and Plan (1) Diabetes mellitus with complication: Code(s): E11.8 - Type 2 diabetes mellitus with unspecified complications Status: Acute (2) Charcot foot due to diabetes mellitus: Code(s): E11.610 - Type 2 diabetes mellitus with diabetic neuropathic arthropathy Status: Acute Assessment and Plan: Discussed the deformity of the right foot with resultant increased plantar lateral pressure and skin breakdown. Discussed the high likelihood of future complications with ulceration, infection, wound healing problems pop, possible osteomyelitis and loss of limb. Patient needs to be aggressive with treatment of this and offloading. Unable to work. Most likely will permanently be unable to work. 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 He is a better candidate for custom ankle bracing and inserts to offload pressure. And control deformity. New prescription given. (3) Diabetic foot ulcer associated with diabetes mellitus due to underlying condition: Qualifiers: Diabetic foot ulcer location: midfoot Laterality: right Non-pressure ulcer stage: with muscle involvement without evidence of necrosis Qualified Code(s): E08.621 - Diabetes mellitus due to underlying condition with foot ulcer; L97.415 - Non-pressure chronic ulcer of right heel and midfoot with muscle involvement without evidence of necrosis Code(s): E08.621 - Diabetes mellitus due to underlying condition with foot ulcer; L97.509 - Non-pressure chronic ulcer of other part of unspecified foot with unspecified severity Status: Acute Assessment and Plan: Updated history, physical exam and radiographs reviewed with the patient. Interval changes reviewed. Discussed the condition, nature, etiology and course of natural history with the patient. Treatment options including surgical and nonoperative treatment were reviewed. Risks and benefits of each as well as alternatives reviewed. The patient's questions were answered. Conservative treatment ice, compression and elevation. No evidence of infection at this time. Ulcer debrided today in the wound clinic. Dressing instructions reviewed with use of silver foam. Absolutely needs to offload pressure. Unable to work secondary to that. Fracture boot for protection offloading in the interim. Follow up in 2 weeks for reassessment. Subjective Subjective Date/Time Seen: 01/14/20 09:59 Principal diagnosis: Diabetic foot ulcer, Charcot arthropathy Interval history: 59-year-old gentleman presents for follow-up [facility] wound clinic for right diabetic foot ulcer with Charcot arthropathy. Patient wearing regular shoe wear due to restraints at work and having to drive himself. He has not been able to obtain his custom boot. He has not been using his fracture boot. Two weeks ago noticed open area with bloody drainage. He was seen by his primary care physician at that time. He states that the size of the area has gotten bigger over the past several days. He notices intermittent bloody drainage. He has not had any fever chills. He does have some pain on the side of the foot. Review of Systems Constitutional: Constitutional: Reports no additional constitutional complaints Eyes: Eyes: Reports no additional eye complaints ENT: Reports system reviewed and no additional complaints, except as documented Cardiovascular: Cardiovascular: Reports no additional cardiovascular complaints Respiratory: Respiratory: Reports no additional respiratory complaints Gastrointestinal: Gastrointestinal: Reports no additional gastrointestinal complaints Genitourinary: Genitourinary: Reports no additional male genitourinary complaints Musculoskeletal: Musculoskeletal: Reports as per HPI, Reports abnormal gait, Reports numbness and Reports stiffness Integumentary/Breasts: Skin/Breast: Reports system reviewed and no additional complaints, except as d
== END 2020-04-03 12:27 | disposition home or self-care (01) ==
LOC: ANHWOC 09:11
PROVIDERS: PCP Family Medicine; Visit Provider Nurse Practitioner Family
DX: S90.821D Blister (nonthermal), right foot, subsequent encounter (principal)
CPT/HCPCS: 11042

== ENCOUNTER 2020-01-21 11:29 | Outpatient (CLI) | payer OTHER, SELFPAY ==
[2020-01-21 11:59] LABS: Add Urine Microscopic? YES; Appearance Urine Clear (Clear); Bacteria Urine Trace /hpf; Bilirubin Urine Negative (Negative); Blood Urine Negative (Negative); Color Urine Yellow (Yellow); Glucose Urine UA Negative (Negative); Ketones Urine Negative (Negative); Leukocyte Esterase Ur Negative LEU/UL (Negative); Mucus Urine Rare /lpf; Nitrate Urine Negative (Negative); Protein Urine 2+ mg/dL (Negative); RBC Urine 0-2 /hpf (0-2); Specific Grav Ur 1.018 (1.001-1.035); Squamous Epithelial Cell Urine Rare /hpf (Few); Urobilinogen Urine Negative mg/dL (<2.0); WBC Urine 0-3 /hpf
[2020-01-21 12:03] LABS: Alanine Aminotransferase 11 U/L (4-50); Albumin Level 3.8 g/dL (3.5-5.1); Alkaline Phosphatase 98 U/L (38-126); Aspartate Amino Transferase 15 U/L (17-59); Bilirubin,Total 0.8 mg/dL (0.2-1.3); Blood Urea Nitrogen 41 mg/dL (9-20); Carbon Dioxide 25 mmol/L (22-30); Chloride 98 mmol/L (98-107); Estimated Glomerular Filt Rate 39; Glucose 206 mg/dL (75-110); Potassium 5.3 mmol/L (3.4-5.0); Sodium 133 mmol/L (137-145)
== END 2020-01-21 11:30 | disposition home or self-care (01) ==
PROVIDERS: PCP Family Medicine; Visit Provider Family Medicine
DX: N17.9 Acute kidney failure, unspecified (principal); E87.1 Hypo-osmolality and hyponatremia; E87.5 Hyperkalemia; R35.0 Frequency of micturition
CPT/HCPCS: 36415; 80053; 81001

== ENCOUNTER 2020-01-21 15:07 | Emergency (ER) | payer OTHER, SELFPAY ==
[2020-01-21] VITALS (11 sets, daily range): BP systolic 100–118; BP diastolic 55–68; PULSE 109–124; RESP 17–20; TEMP 37.1–37.7; O2SAT 94–98
--- NOTE | ~2020-01-21 | XR_ITS ---
XR foot RT min 3V DATE: 01/21/2020 16:25 INDICATION: Plantar foot wound TECHNIQUE: 4 views COMPARISON: 12/14/2019, 11/28/2019 right foot FINDINGS: There is soft tissue swelling along the mid plantar aspect of the foot. There is subcutaneo us emphysema. Findings suggest cellulitis. Again noted is lateral dislocation at the second through fifth tarsometatarsal joints consistent with Lisfranc dislocation, as well as bone destruction and fragments at the tarsal and tarsometatarsal ar ea likely due to Charcot arthropathy. This may be of neuropathic origin or possibly diabetic origin a lthough there are not the arterial calcifications and might be expected or nearly with diabetic neuro pathic changes. Clinical correlation is recommended. Mild plantar and posterior calcaneal enthesopathy. IMPRESSION: Soft tissue swelling and subcutaneous emphysema suggesting cellulitis, possibly gangrene Neuropathic/Charcot changes at the tarsal and tarsometatarsal areas in particular, with second throug h fifth tarsometatarsal joint lateral (Lisfranc) dislocation. The destructive changes and dislocation and progress significant since 11/28/2019 and even 12/14/2019. Therefore, osteomyelitis should be consi dered as well. Reviewed, dictated and finalized at location A. IMPRESSION: Soft tissue swelling and subcutaneous emphysema suggesting cellulit is, possibly gangrene Neuropathic/Charcot changes at the tarsal and tarsometatarsal areas in particul ar, with second through fifth tarsometatarsal joint lateral (Lisfranc) dislocat ion. The destructive changes and dislocation and progress significant since 11/05 and even 12/14/2019. Therefore, osteomyelitis should be considered as well .
--- NOTE | 2020-01-21 15:55 | ED.GENADULT ---
HPI - General Adult General Chief complaint: Wound/Laceration <Rui Fisher PA-C - Last Filed: 01/21/20 21:05> Stated complaint: Mainly my foot <Rui Fisher PA-C - Last Filed: 01/21/20 21:05> Time Seen by Provider: 01/21/20 15:20 <Rui Fisher PA-C - Last Filed: 01/21/20 21:05> Source: patient, family and old records reviewed <Rui Fisher PA-C - Last Filed: 01/21/20 21:05> Mode of arrival: ambulatory <Rui Fisher PA-C - Last Filed: 01/21/20 21:05> Limitations: no limitations <Rui Fisher PA-C - Last Filed: 01/21/20 21:05> History of Present Illness HPI narrative: Patient is a 59-year-old male who presents with swollen tender right foot history of diabetic ulcer followed by orthopedic surgery DrEliud Guevara was seen in the last week had some devitalized tissue removed from the wound notes over the weekend it became red tender and swollen has since had chills decreased appetite and dry retching. Patient is an insulin-dependent diabetic. Patient denies injury or trauma or other complaints presents per private vehicle in no distress and is not currently on antibiotics <Rui Fisher PA-C - Last Filed: 01/21/20 21:05> Related Data Home medications: Home Medications Medication Instructions Recorded Confirmed insulin detemir U-100 100 unit/mL See Rx Instructions .ROUTE 08/02/19 12/14/19 (3 mL) subcutaneous pen .COMPLEX ml <Rui Fisher PA-C - Last Filed: 01/21/20 21:05> Allergies/adverse reactions: Allergies Allergy/AdvReac Type Severity Reaction Status Date / Time amoxicillin AdvReac Unknown Nausea Verified 01/06/20 11:51 <Rui Fisher PA-C - Last Filed: 01/21/20 21:05> Review of Systems Review of Systems: All systems reviewed & are unremarkable except as noted in HPI and below <Rui Fisher PA-C - Last Filed: 01/21/20 21:05> [facility] Past Medical History Medical History: Medical History Anemia Charcot foot due to diabetes mellitus Charcot's joint arthropathy in type 2 diabetes mellitus Degenerative arthritis of cervical spine On diclofenac Diabetes Diabetic autonomic neuropathy associated with type 2 diabetes mellitus Diabetic foot ulcer associated with diabetes mellitus due to underlying condition Diabetic retinopathy associated with type 2 diabetes mellitus Foot fracture, left Hyponatremia Knee osteoarthritis Left ventricular hypertrophy Morbid obesity with BMI of 45.0-49.9, adult Obstructive sleep apnea Sleep study June 2015 recommended CPAP of 14 Other and unspecified hyperlipidemia Vision abnormalities <Rui Fisher PA-C - Last Filed: 01/21/20 21:05> Surgical History Surgical History: Surgical History H/O wisdom tooth extraction History of circumcision History of tonsillectomy <Rui Fisher PA-C - Last Filed: 01/21/20 21:05> Social History Social History: Social History Social History: Primary care provider: Dr. Elias Montalvo Code status: Full code Advanced directives: None Smoking packs per day: 2 Smoking cigarettes per day: 40.0 Years smoked: 20 Smoking pack-years: 40.00 Smoking status: Former smoker Tobacco type: cigarettes Smoking end date: 12/05/97 Alcohol intake: current Drinks per week: 1 Substance use: never Additional living arrangements comments: He lives with his of 26 years. He has 1 adult daughter who is healthy. 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 Gender identity (if verbalized by the patient): Male Spiritual care concerns: No <Rui Fisher PA-C - Last Filed: 01/21/20 21:05> Exam Narrative: Exam Narrative: GENERAL: Well-appearing, obese, and in no acute distress. HEAD: Normocephalic,
[2020-01-21 15:56] LABS: Basophils Percent Auto 0.2 % (0.2-1.2); Eosinophils Percent Auto 0.1 % (0-4.4); Hematocrit 32.9 % (42.0-52.0); Hemoglobin 10.9 g/dL (14.0-18.0); Immature Granulocyte Absolute 0.08 K/mm3 (0.00-0.031); Immature Granulocyte Percent A 0.6 % (0-0.5); Lymphocytes Absolute Auto 0.32 K/mm3 (0.9-3.2); Lymphocytes Percent Auto 2.3 % (18.3-44.2); Mean Corpuscular HGB Conc 33.1 g/dl (32-36); Mean Corpuscular Volume 93.5 fl (80-100); Mean Platelet Volume 11.1 fl (7.4-10.4); Monocytes Absolute Auto 0.8 K/mm3 (0.1-0.6); Monocytes Percent Auto 5.6 % (2.6-8.5); Neutrophils Absolute Auto 12.9 K/mm3 (1.3-6.7); Neutrophils Percent Auto 91.2 % (45.5-73.1); Platelet Count Result 204 k/mm3 (150-375); Red Blood Count 3.52 M/mm3 (4.6-6.20); Red Cell Distribution Width 12.8 % (11.5-14.5); White Blood Count 14.2 K/mm3 (4.5-10.0)
[2020-01-21 16:06] LABS: INR 1.5; Lactic Acid Reflex 2.9 mmol/L (0.7-2.1); Prothrombin Time 17.7 Seconds (11.1-14.7)
[2020-01-21 16:07] LABS: Partial Thromboplastin Time 36.4 SECONDS (22.3-36.8)
[2020-01-21 16:19] LABS: Alanine Aminotransferase 12 U/L (4-50); Alkaline Phosphatase 103 U/L (38-126); Aspartate Amino Transferase 17 U/L (17-59); Bilirubin,Total 0.8 mg/dL (0.2-1.3); Blood Urea Nitrogen 41 mg/dL (9-20); Calcium 9.3 mg/dL (8.4-10.2); Carbon Dioxide 26 mmol/L (22-30); Chloride 95 mmol/L (98-107); Estimated CRCL calculation 50 ml/min; Estimated Glomerular Filt Rate 37; Glucose 215 mg/dL (75-110); Magnesium 1.5 mg/dL (1.6-2.3); Phosphorus 2.6 mg/dL (2.5-4.5); Potassium 5.5 mmol/L (3.4-5.0); Sodium 131 mmol/L (137-145)
[2020-01-21] MEDS: MORPHINE SULFATE 4 MG/ML INJ IV PUSH (16:32)
[2020-01-21 16:59] LABS: CRP > 45.0 mg/dL (<1.0)
[2020-01-21] MEDS: SODIUM CHLORIDE 0.9% IV 1,000 ML 999 ML IV CONT (17:39)
[2020-01-21] MEDS: MAGNESIUM SULF 2 GM/WATER 50ML 2 GM/50 ML BAG IVPB (18:48)
[2020-01-21 18:53] LABS: Reflex Lactic Acid Yes or No Add Lactic
[2020-01-21 19:57] LABS: Lactic Acid 1.5 mmol/L (0.7-2.1)
[2020-01-21] MEDS: MORPHINE SULFATE 2 MG/ML INJ IV PUSH (20:25)
--- NOTE | 2020-01-21 21:30 | PC.NURSE ---
called [facility] at 2118 to transport patient. ETA [id number] called [facility] at 2121 to request transport. [facility] declined.
--- NOTE | 2020-01-21 22:12 | PC.NURSE ---
[facility] called to update ETA to [id number]
== END 2020-01-21 23:36 | disposition short-term general hospital (02) ==
PROVIDERS: Emergency Medicine Emergency Medical Services; Emergency Provider Emergency Medicine; PCP Family Medicine
DX: A41.9 Sepsis, unspecified organism (principal); L03.115 Cellulitis of right lower limb; N17.9 Acute kidney failure, unspecified; E11.610 Type 2 diabetes mellitus with diabetic neuropathic arthropathy; Z79.4 Long term (current) use of insulin; E11.319 Type 2 diabetes mellitus with unspecified diabetic retinopathy without macular edema; E11.43 Type 2 diabetes mellitus with diabetic autonomic (poly)neuropathy; M17.10 Unilateral primary osteoarthritis, unspecified knee; E66.01 Morbid (severe) obesity due to excess calories; Z68.41 Body mass index [BMI] 40.0-44.9, adult; E78.49 Other hyperlipidemia; G47.33 Obstructive sleep apnea (adult) (pediatric); Z87.891 Personal history of nicotine dependence
CPT/HCPCS: 36415; 73630; 80053; 82010; 83605; 83735; 84100; 85025; 85610; 85730; 86140; 87040; 87077; 87186; 96365; 96366; 96367; 96375; 96376; 99284; J0131; J0743; J2270; J3370; J3475; J7030

== ENCOUNTER 2020-02-09 05:37 | Inpatient (IN) | payer OTHER, SELFPAY ==
[2020-02-09] VITALS (17 sets, daily range): BP systolic 160–204; BP diastolic 83–106; PULSE 66–105; RESP 13–23; TEMP 36.5–37; O2SAT 94–100
--- NOTE | ~2020-02-09 | XR_ITS ---
EXAMINATION: XR chest 1V portable INDICATION: Shortness of breath TECHNIQUE: Portable AP chest at 0612 hours COMPARISON: 12/08/2019 FINDINGS: There is a mild diffuse interstitial pattern. Cardiomegaly is noted. There are airspace opa cities of the lung bases. Small right pleural effusion is present. There is no pneumothorax. IMPRESSION: 1. Mild diffuse interstitial pattern which could reflect pulmonary edema. 2. Bibasilar airspace opacities, consistent with atelectasis versus pneumonia. Reviewed, dictated and finalized at location A.
--- NOTE | ~2020-02-09 | CT_ITS ---
EXAMINATION: CTA chest PE protocol DATE: 02/09/2020 06:59 INDICATION: Shortness of breath. Elevated d-dimer. Cough. Immobility from foot surgery. TECHNIQUE: Computed tomography angiography (CTA) of the chest was performed with 100 mL Omnipaque-350 intravenous contrast timed to evaluate the pulmonary arteries. Coronal maximum intensity projection 3D-reconstructions were created by the technologist. Automated exposure control and iterative reconst ruction technique were employed. Exam dose: 1043.56 mGy-cm total exam DLP. COMPARISON: 02/09/2020 portable AP chest FINDINGS: There is diagnostic contrast enhancement of the pulmonary arteries and no evidence of pulmo nary embolism. No thoracic aortic aneurysm or dissection. Coronary artery calcifications. Mild pericardial effusion. Mild cardiomegaly. No hilar or mediastinal mass lesion or lymphadenopathy. There are are patchy bilateral pulmonary infiltrates and/atelectasis, including dependent atelectasis of the middle lobe along the greater fissure and lower lobe dependent atelectasis, especially on the right. There are bilateral pleural effusions, right greater than left. Normal morphology of the adrenal glands. Splenomegaly No suspicious osteolytic or osteoblastic lesions are noted. IMPRESSION: No CT evidence of pulmonary embolism Cardiomegaly, bilateral pleural effusions, right greater than left; congestive heart failure is suspe cted Bilateral infiltrate/atelectasis, especially in the dependent middle and right lower lobes Splenomegaly Reviewed, dictated and finalized at Location A. Reviewed, dictated and finalized at location A. IMPRESSION: No CT evidence of pulmonary embolism Cardiomegaly, bilateral pleural effusions, right greater than left; congestive heart failure is suspected Bilateral infiltrate/atelectasis, especially in the dependent middle and right lower lobes Splenomegaly
--- NOTE | 2020-02-09 05:45 | ECG_ITS ---
Measurements Intervals [place] Rate: 92 P: 47 IA: 152 QRS: -14 QRSD: 98 T: 70 QT: 352 QTc: 437 Interpretive Statements SINUS RHYTHM DELAYED PRECORDIAL R/S TRANSITION BORDERLINE T WAVE ABNORMALITY- ANT/HIGH LAT LEADS BASELINE ARTIFACT- I, III, AVL BORDERLINE ECG Electronically Signed On 02-09-2020 7:08:03 CDT by Anthony Mckeon D.O.
--- NOTE | 2020-02-09 05:46 | ED.SOB ---
HPI - SOB/Dyspnea General Chief Complaint: Shortness of Breath/Dyspnea <Opal Landin MD - Last Filed: 02/11/20 19:07> Stated Complaint: can't breathe <Opal Landin MD - Last Filed: 02/11/20 19:07> Time Seen by Provider: 02/09/20 05:45 <Opal Landin MD - Last Filed: 02/11/20 19:07> History of Present Illness HPI Narrative: Patient presents for shortness of breath since last night. He does not have COPD or asthma. He has not had fever. He has a slight cough from sinus drainage. He produces some clear sputum. He has some chest pressure anteriorly. When I asked if he takes a water pill he evaded to question. The last time I saw him he said he took the water pill every other day as he felt that he needed it. He has a history of a right foot infection for which she had surgery and has a drain still. He does not smoke cigarettes, rarely drinks alcohol, does not do marijuana. He is a type II diabetic on insulin. His mother came in snf through the evaluation and starts answering for him. <Opal Landin MD - Last Filed: 02/11/20 19:07> MD elicited complaint: shortness of breath and cough <Opal Landin MD - Last Filed: 02/11/20 19:07> Pertinent past history: diabetes <Opal Landin MD - Last Filed: 02/11/20 19:07> Onset (ago): hour(s) <Opal Landin MD - Last Filed: 02/11/20 19:07> Timing: constant <Opal Landin MD - Last Filed: 02/11/20 19:07> Severity: moderate <Opal Landin MD - Last Filed: 02/11/20 19:07> Exacerbating factors: exertion <Opal Landin MD - Last Filed: 02/11/20 19:07> Known history of: diabetes <Opal Landin MD - Last Filed: 02/11/20 19:07> Associated symptoms: chest pain and cough <Opal Landin MD - Last Filed: 02/11/20 19:07> Related Data Home Medications: Home Medications Medication Instructions Recorded Confirmed insulin detemir U-100 100 unit/mL See Rx Instructions .ROUTE 08/02/19 02/09/20 (3 mL) subcutaneous pen .COMPLEX ml cefazolin in 0.9% sod chloride 2 g IV Q8H 02/09/20 02/09/20 metronidazole 500 mg PO TID 02/09/20 02/09/20 <Opal Landin MD - Last Filed: 02/11/20 19:07> Allergies/Adverse Reactions: Allergies Allergy/AdvReac Type Severity Reaction Status Date / Time amoxicillin AdvReac Unknown Nausea Verified 02/09/20 06:25 <Opal Landin MD - Last Filed: 02/11/20 19:07> Review of Systems Review of Systems: Narrative: CONSTITUTIONAL: Denies fever, chills, or sweats. EYES: Denies visual changes, redness, or discharge. ENT: Denies rhinorrhea, congestion, sore throat, or otalgia. CARDIOVASCULAR: He has chest pain, and edema. RESPIRATORY: He has cough and dyspnea. GASTROINTESTINAL: Denies abdominal pain, nausea, vomiting, or diarrhea. GENITOURINARY: Denies dysuria or hematuria. SKIN: Denies rash or itching. MUSCULOSKELETAL: Denies back pain, joint pain, or myalgia. He had recent foot surgery on the right foot. There is a drain present. NEUROLOGIC: Denies headache, numbness, or weakness. . <Opal Landin MD - Last Filed: 02/11/20 19:07> All systems reviewed & are unremarkable except as noted in HPI and below <Opal Landin MD - Last Filed: 02/11/20 19:07> [facility] Past Medical History Medical History: Medical History (Updated 02/10/20 @ 15:08 by Marina Brown PA-C) Anemia Charcot foot due to diabetes mellitus Charcot's joint arthropathy in type 2 diabetes mellitus Degenerative arthritis of cervical spine On diclofenac Diabetes Diabetic autonomic neuropathy associated with type 2 diabetes mellitus Diabetic foot ulcer associated with diabetes mellitus due to underlying condition Diabetic retinopathy associated with type 2 diabetes mellitus Foot fracture, left Hyperlipidemia Hyponatremia Knee osteoarthritis Left ventricular hypertrophy Morbid obesity with BMI of 45.0-49.9, adult Obstructive sleep apnea Sleep study June 2015 recommended CPAP of 14 Other an
[2020-02-09 06:12] LABS: Basophils Percent Auto 0.3 % (0.2-1.2); Eosinophils Absolute Auto 0.1 K/mm3 (0-0.3); Eosinophils Percent Auto 2.2 % (0-4.4); Hematocrit 26.1 % (42.0-52.0); Hemoglobin 8.3 g/dL (14.0-18.0); Immature Granulocyte Absolute 0.02 K/mm3 (0.00-0.031); Immature Granulocyte Percent A 0.3 % (0-0.5); Lymphocytes Absolute Auto 0.94 K/mm3 (0.9-3.2); Lymphocytes Percent Auto 15.1 % (18.3-44.2); Mean Corpuscular HGB Conc 31.8 g/dl (32-36); Mean Corpuscular Hemoglobin 30.4 pg (26-34); Mean Corpuscular Volume 95.6 fl (80-100); Mean Platelet Volume 10.4 fl (7.4-10.4); Monocytes Absolute Auto 0.6 K/mm3 (0.1-0.6); Neutrophils Absolute Auto 4.6 K/mm3 (1.3-6.7); Neutrophils Percent Auto 73.1 % (45.5-73.1); Platelet Count Result 365 k/mm3 (150-375); Red Blood Count 2.73 M/mm3 (4.6-6.20); Red Cell Distribution Width 13.1 % (11.5-14.5); White Blood Count 6.2 K/mm3 (4.5-10.0)
[2020-02-09 06:21] LABS: INR 1.3; Prothrombin Time 15.9 Seconds (11.1-14.7)
[2020-02-09 06:22] LABS: Partial Thromboplastin Time 35.3 SECONDS (22.3-36.8)
[2020-02-09 06:24] LABS: D Dimer 2.52 ug/mL (<0.48)
[2020-02-09 06:30] LABS: Albumin Level 3.4 g/dL (3.5-5.1); Alkaline Phosphatase 83 U/L (38-126); Anion Gap 10.8 mmol/L (7-16); Aspartate Amino Transferase 15 U/L (17-59); Bilirubin,Total 0.2 mg/dL (0.2-1.3); Blood Urea Nitrogen 34 mg/dL (9-20); Calcium 8.6 mg/dL (8.4-10.2); Carbon Dioxide 26 mmol/L (22-30); Chloride 108 mmol/L (98-107); Estimated CRCL calculation 69 ml/min; Estimated Glomerular Filt Rate 52; Glucose 97 mg/dL (75-110); Lactic Acid Reflex 0.7 mmol/L (0.7-2.1); Potassium 4.8 mmol/L (3.4-5.0); Sodium 140 mmol/L (137-145)
[2020-02-09] MEDS: FUROSEMIDE INJ 100 MG/10 ML VIAL 80 MG IV PUSH (06:35)
[2020-02-09 06:42] LABS: NT Pro B Type Natriuretic Pept 3000 PG/ML (5-100); Troponin I 0.024 ng/mL (0.000-0.034)
[2020-02-09 06:50] LABS: Alanine Aminotransferase < 4 U/L (4-50)
[2020-02-09] MEDS: ASPIRIN 81 MG CHEWABLE TABLET 324 MG PO (07:49)
[2020-02-09] MEDS: NITROGLYCERIN OINTMENT 1 INCH DOSE TRANSDERM (07:49)
--- NOTE | 2020-02-09 08:58 | PC.NURSE ---
SPOKE WITH FORM DRAFTER JULIUS WHO INFORMED THAT PT WOUND VAC NEEDS TO BE REMOVED AND TO PLACE AN ABD AND KERLEX OVER TOP OF THE WOUND, STATES SHE WILL COME PLACE A NEW WOUND VAC ON WHEN HE GETS UPSTAIRS.
--- NOTE | 2020-02-09 10:51 | ADMGEN ---
This patient, Neil Haines, was admitted to 3 Med Surg Room 327-01 on 02/09/2020 @ 0954. Patient/family oriented to hospital policies and general routines including ID bracelet, bed and alarms, visiting hours, pain management, procedures, bathroom and other care routines, personal items, smoking policy, room service/diet, and visiting hours. Valuables list has been completed. Information on how to activate the Rapid Response Team has been discussed. Patient/Family are encouraged to report perceived risks to care and to ask questions if they do not understand what they are told or what they should do.
[2020-02-09 11:30] LABS: Troponin I 0.014 ng/mL (0.000-0.034)
[2020-02-09 12:24] LABS: Glucose Point of Care 102 (65-105)
--- NOTE | 2020-02-09 13:47 | PM.CNCAR ---
Assessment and Plan Assessment and plan (1) Shortness of breath: Code(s): R06.02 - Shortness of breath Status: Acute (2) CHF (congestive heart failure): Qualifiers: Heart failure chronicity: unspecified Heart failure type: unspecified Qualified Code(s): I50.9 - Heart failure, unspecified Code(s): I50.9 - Heart failure, unspecified Status: Acute Assessment and Plan: seems to have acute exacerbation of congestive heart failure, likely is due to systolic dysfunction, agree with Lasix, will get echocardiogram to evaluate current status left ventricular systolic function, will wait on starting lisinopril and to look at his echo in view of her renal insufficiency (3) Anemia: Qualifiers: Anemia type: unspecified type Qualified Code(s): D64.9 - Anemia, unspecified Code(s): D64.9 - Anemia, unspecified Status: Acute (4) D-dimer, elevated: Code(s): R79.89 - Other specified abnormal findings of blood chemistry Status: Acute Assessment and Plan: raises suspicion for PE, consider V/Q scan, will get echocardiogram to look for pulmonary hypertension (5) Charcot foot due to diabetes mellitus: Code(s): E11.610 - Type 2 diabetes mellitus with diabetic neuropathic arthropathy Status: Acute (6) Atypical chest pain: Code(s): R07.89 - Other chest pain Status: Acute Assessment and Plan: agree with diuresis, eventually he will need to have a stress test whenever his CHF status improved Additional Plan Thank you for allowing me to participate in this patient's care, I will be following up with you. Please do not hesitate to call me for any other inquiry History of Present Illness History of Present Illness Consult date/time: 02/09/20 13:47 59 years old gentleman, with history of diabetes mellitus, history of hypertension, came to hospital because of worsening shortness of breath and heaviness in the chest. Started having worsening shortness of breath past 3 days or so with leg swelling and significant orthopnea. No known history of coronary disease no history of known cardiac disease. He was in the hospital recently at [facility] for treatment of ulcer of the right ankle, currently he is on IV antibiotics through PICC line. . Heaviness in her chest improved but he stated that he gets heaviness the chest with deep inspiration. currently feels better since admission with IV diuresis Reason For Visit: chf,pui covic Review of Systems Constitutional: Constitutional: Reports fatigue, Reports lethargy and Reports weakness Cardiovascular: Cardiovascular: Reports chest pain, Reports pedal edema and Reports lightheadedness Endocrine: Endocrine: Reports as per HPI [facility] Past Medical History Medical History (Updated 02/09/20 @ 15:00 by Marysol Wallace NP) Anemia Charcot foot due to diabetes mellitus Charcot's joint arthropathy in type 2 diabetes mellitus Degenerative arthritis of cervical spine On diclofenac Diabetes Diabetic autonomic neuropathy associated with type 2 diabetes mellitus Diabetic foot ulcer associated with diabetes mellitus due to underlying condition Diabetic retinopathy associated with type 2 diabetes mellitus Foot fracture, left Hyperlipidemia Hyponatremia Knee osteoarthritis Left ventricular hypertrophy Morbid obesity with BMI of 45.0-49.9, adult Obstructive sleep apnea Sleep study June 2015 recommended CPAP of 14 Other and unspecified hyperlipidemia Vision abnormalities Surgical History Surgical History H/O wisdom tooth extraction History of circumcision History of tonsillectomy Family History Family History Mother Diabetes mellitus, Onset Age: 80 Pancreatic cancer Father Carcinoma of colon Malignant neoplasm of prostate Hypertension COPD (chronic obstructive
--- NOTE | 2020-02-09 13:55 | PM.IMHP ---
H&P: HPI History of Present Illness Date/Time: 02/09/20 13:55 Chief complaint: chf,pui covic Narrative: Neil Haines is a 59 year old male Who is a chronic wound to his right foot due to diabetic Charcot foot. The patient was just released from [facility] approximately 1 week ago. He had a wound VAC on and he accidentally toward off at home and also he is on antibiotics for 6 weeks. He is not sure of which type of antibiotic he is on. He has a PICC line in the left forearm. The patient is insulin-dependent diabetes type 2. He stated that he did have a COVID test last week when he was at [facility] and was found to be negative. He denies any history of having COPD or congestive heart failure. He does have obstructive sleep apnea but is noncompliant with his CPAP machine is intolerant of it. He typically has normal blood pressures but today it elevated. The patient does not recall having an alcohol recently. 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 No echo results were found here. Patient's chest CT a was read as no CT evidence of pulmonary embolism. Cardiomegaly, bilateral pleural effusion, greater right than left, congestive heart failure suspected. Bilateral infiltrate atelectasis specially in the dependent middle and right lower lobes. splenomegaly. Wound care consult has been placed in deaf he then wound care nurses seen the patient replace the back. It looks pretty extensive from the top of his right foot to the bottom. He did have an MRI of his right foot. He has extensive osteomyelitis of the midfoot extending into the proximal 2nd through 5th metatarsals. Plantar aspect skin ulceration and underlying subcutaneous abscesses flu right midfoot. Septic joint extending within the 2nd through 5th tarsometatarsal joint into the not benavcuneiform joint. patient is being screened for covid 19. He was placed in isolation. He was given IV Lasix, nitro 1 inch, an aspirin. The patient is currently on room air. He states that he is still short of breath with exertion. He stated that the oxygen did nothing for him. The patient has no fever chills or cough. He has shortness of breath with exertion. Patient typically walks with a cane due to his wound on his foot. The ER provider noted that she did call Dr. lynch and that he will not be able to see the patient at this time. I spoke with the be the wound care nurse who suggested that we consult infectious disease. Dr. ziegler was near me so I have reviewed the case with the infectious disease physician who stated that the patient already has a plan of care and that he should follow-up the antibiotics that the infectious disease doctor at [facility] has prescribed from [facility]. I have spent over an hour speaking with specialist and the wound care nurse and the patient and reviewing his records. I did not see on the image the PICC line however the PICC line nurse told the nurse that the PICC line is in place and that can be used. Date of service 02/09/2020 Review of Systems Review of Systems: All systems reviewed & are unremarkable except as noted in HPI and below Constitutional: Constitutional: Reports as per HPI and Reports no additional constitutional complaints Eyes: Eyes: Reports as per HPI and Reports no additional eye complaints ENT: Reports system reviewed and no additional complaints, except as documented and Reports Normal hearing present Cardiovascular: Cardiovascular: Reports no additional cardiovascular complaints Respiratory: Respiratory: Reports no additional respiratory complaints and Reports no additional respiratory complaints Gastrointestinal: Gastrointestinal: Reports as per HPI and Reports no additional gastrointestinal complaints Musculoskeletal: Musculoskeletal: Reports no additional musculoskeletal complaints Integumentary/Breasts: Skin/Breast: Reports system reviewed and no additional complaints, except as docu and Reports as per HPI Neurologic: Repo
[2020-02-09] MEDS: hydrALAZINE HCL 20 MG/ML VIAL 10 MG IV PUSH (14:48)
--- NOTE | 2020-02-09 14:52 | ECG_ITS ---
Measurements Intervals Coyle Rate: 47 P: 42 OK: 148 QRS: -21 QRSD: 92 T: 63 QT: 384 QTc: 342 Interpretive Statements SINUS BRADYCARDIA ATRIAL PREMATURE COMPLEXES BORDERLINE R WAVE PROGRESSION, ANTERIOR LEADS BASELINE ARTIFACT- II, III, AVR, AVL, AVF, V3-V4 ABNORMAL ECG Electronically Signed On 02-09-2020 15:41:45 CDT by Anthony Mckeon D.O.
[2020-02-09 15:52] LABS: Cholesterol 101 mg/dL (0-200); HDL Direct 24 mg/dL; Triglycerides 159 mg/dL (<150)
[2020-02-09] MEDS: LORazepam 0.5 MG TABLET PO (15:52)
[2020-02-09 16:03] LABS: LDL Cholesterol Direct 43 mg/dL; Troponin I 0.014 ng/mL (0.000-0.034)
[2020-02-09 17:59] LABS: Glucose Point of Care 127 (65-105)
[2020-02-09] MEDS: LABETALOL HCL INJ 100 MG/20 ML VIAL IV PUSH (18:03)
[2020-02-09 18:52] LABS: SARS-CoV-2 RNA PCR Negative
[2020-02-09] MEDS: FUROSEMIDE INJ 40 MG/4 ML VIAL IV PUSH (20:49)
[2020-02-09] MEDS: cloNIDine HCL 0.1 MG TABLET PO (21:22)
[2020-02-09] MEDS: metroNIDAZOLE 250 MG TABLET 500 MG PO (21:22)
[2020-02-09] MEDS: traZODone HCL 50 MG TABLET 150 MG PO (21:24)
[2020-02-09] MEDS: ceFAZolin 2 GM/D5W 50 ML 2 GM/50 ML BAG IVPB (21:30)
[2020-02-09] MEDS: INSULIN DETEMIR 100 UNITS/ML 30 UNITS SUB-Q (21:36)
[2020-02-09 22:19] LABS: Glucose Point of Care 163 (65-105)
[2020-02-10] VITALS (15 sets, daily range): BP systolic 160–171; BP diastolic 80–88; PULSE 84–110; RESP 16–22; TEMP 36.7–36.8; O2SAT 93–98
--- NOTE | 2020-02-10 | ECHO_ITS ---
Patient Info Name: Neil Haines Age: 59 years : 1960 Gender: Male Ht: 67 in Wt: 297 lbs BSA: 2.60 m2 HR: 100 bpm BP: 167 / 88 mmHg Technical Quality: Good Exam Date: 02/10/2020 10:41 AM Exam Location: [facility] Patient Status: Outpatient Admit Date: 02/09/2020 Staff Ordering Physician: Iron Torrez MD Cork Wirer: Jovany Fall RDCS, RT Attending Provider: Marina Borwn PA-C Exam Type: CA echo doppler color flow Study Info Indications I50.9 - Heart failure, unspecified Complete two-dimensional, color flow and Doppler transthoracic echocardiogram is performed. Summary 1. Left ventricular systolic function is normal, estimated at 65-70%. 2. The mitral valve has thickened leaflets. 3. There is moderate mitral valve regurgitation. Left Ventricle Left ventricular systolic function is normal, estimated at 65-70%. Left ventricular chamber dimension is normal. There is no increased left ventricular wall thickness. Left ventricular septal wall motion is normal. The left ventricular diastolic function is normal. Right Ventricle Right ventricular chamber dimension is normal. Right ventricular systolic function is normal. Left Atria Left atrial chamber dimension is normal. Right Atria Right atrial chamber dimension is normal. Aortic Valve The aortic valve is trileaflet. There is no aortic valve sclerosis. There is no aortic valve stenosis. There is no aortic valve regurgitation. Pulmonic Valve The pulmonic valve is normal. There is no pulmonic valve stenosis. There is no pulmonic regurgitation. Mitral Valve The mitral valve has thickened leaflets. There is moderate mitral valve regurgitation. There is no mitral valve stenosis. Tricuspid Valve The tricuspid valve leaflets are normal. There is no significant tricuspid valve stenosis. There is no tricuspid valve regurgitation. Pericardium/Pleural The pericardium appears normal. There is no pericardial effusion. Aorta The aortic root size at the sinus of Valsalva is normal. The prox ascending aorta size is normal. Left Ventricular Outflow Tract Name Value Normal LVOT 2D LVOT Diameter 2.4 cm LVOT Doppler LVOT Peak Gradient 6 mmHg LVOT Mean Gradient 4 mmHg LVOT VTI 24 cm LVOT VTI/AV VTI Ratio 0.9 LVOT Stroke Volume 111 ml LVOT CO 10.0 l/min LVOT CI 3.8 l/min/m2 Mitral Valve Name Value Normal MV Doppler MV Peak Gradient 2 mmHg MV Mean Gradient 1 mmHg MV Decel Bent 767 cm/s2 MV PHT 43 ms MV Are
[2020-02-10] MEDS: ALBUTEROL SULFATE NEB 2.5 MG/0.5 ML INH 5 MG INHALATION ×2 (00:36→08:16)
[2020-02-10 00:41] LABS: Alveolar/Arterial O2 Gradient 42.4 mmHg; Base Excess ABG 1.1 mEq/l (+/-2.0); Carboxyhemoglobin 0.3 % THb (0-2.0); Device ROOM AIR; Fractional Inspired Oxygen 21 %; Methemoglobin ABG 0.2 %THb (0-1.5); Oxygen Content ABG 12.3 %vol (16.0-22.0); Oxygen Saturation ABG 93.5 % (95.0-100.0); PCO2 ABG 36.4 mmHg (35.0-45.0); PO2 ABG 63.7 mmHg (80.0-100.0); PO2 FiO2 Ratio Arterial Blood 3.03 %; Reduced Hemoglobin 8.5 %THb (0-5.0); Site Drawn LEFT BRACHIAL; Total Hemoglobin 9.6 g/dL (12.0-18.0); pH ABG 7.454 (7.350-7.450)
[2020-02-10] MEDS: metroNIDAZOLE 250 MG TABLET 500 MG PO ×3 (05:42→22:53)
[2020-02-10] MEDS: ceFAZolin 2 GM/D5W 50 ML 2 GM/50 ML BAG IVPB ×3 (05:43→22:54)
[2020-02-10 06:31] LABS: Basophils Percent Auto 0.5 % (0.2-1.2); Eosinophils Absolute Auto 0.1 K/mm3 (0-0.3); Eosinophils Percent Auto 1.8 % (0-4.4); Hematocrit 25.1 % (42.0-52.0); Immature Granulocyte Absolute 0.02 K/mm3 (0.00-0.031); Immature Granulocyte Percent A 0.3 % (0-0.5); Lymphocytes Absolute Auto 0.85 K/mm3 (0.9-3.2); Lymphocytes Percent Auto 13.8 % (18.3-44.2); Mean Corpuscular HGB Conc 31.9 g/dl (32-36); Mean Corpuscular Hemoglobin 29.9 pg (26-34); Mean Corpuscular Volume 93.7 fl (80-100); Mean Platelet Volume 10.3 fl (7.4-10.4); Monocytes Absolute Auto 0.6 K/mm3 (0.1-0.6); Monocytes Percent Auto 9.7 % (2.6-8.5); Neutrophils Absolute Auto 4.6 K/mm3 (1.3-6.7); Neutrophils Percent Auto 73.9 % (45.5-73.1); Platelet Count Result 355 k/mm3 (150-375); Red Blood Count 2.68 M/mm3 (4.6-6.20); Red Cell Distribution Width 13.2 % (11.5-14.5); White Blood Count 6.2 K/mm3 (4.5-10.0)
[2020-02-10 06:40] LABS: Anion Gap 12.9 mmol/L (7-16); Blood Urea Nitrogen 27 mg/dL (9-20); Calcium 8.6 mg/dL (8.4-10.2); Carbon Dioxide 27 mmol/L (22-30); Chloride 104 mmol/L (98-107); Estimated CRCL calculation 95 ml/min; Estimated Glomerular Filt Rate > 60; Glucose 164 mg/dL (75-110); Potassium 4.9 mmol/L (3.4-5.0); Sodium 139 mmol/L (137-145)
[2020-02-10 06:41] LABS: Hemoglobin A1C 6.2 % (<5.7)
[2020-02-10] MEDS: FUROSEMIDE INJ 40 MG/4 ML VIAL IV PUSH ×2 (08:07→20:49)
[2020-02-10] MEDS: PANTOPRAZOLE 40 MG TABLET PO (08:07)
[2020-02-10] MEDS: ASPIRIN 81 MG CHEWABLE TABLET PO (08:07)
[2020-02-10] MEDS: ATORVASTATIN 20 MG TABLET PO (08:07)
[2020-02-10 08:11] LABS: Glucose Point of Care 142 (65-105)
[2020-02-10] MEDS: ENOXAPARIN 40 MG/0.4 ML SYRINGE SUB-Q (09:17)
[2020-02-10 12:31] LABS: Glucose Point of Care 165 (65-105)
--- NOTE | 2020-02-10 14:04 | PM.IMPN ---
Progress Note: A&P Assessment and Plan (1) CHF (congestive heart failure): Qualifiers: Heart failure chronicity: unspecified Heart failure type: unspecified Qualified Code(s): I50.9 - Heart failure, unspecified Code(s): I50.9 - Heart failure, unspecified Status: Acute Assessment and Plan: -----suspected CHF with exam and CT findings. Await echo. Continue IV lasic. continue IV Lasix. cardiology consulted. (2) Diabetes: Qualifiers: Diabetes mellitus type: type 2 Diabetes mellitus custodial insulin use: with custodial use Diabetes mellitus complication status: with neurologic complications Diabetes mellitus complication detail: with other neurological complication Qualified Code(s): E11.49 - Type 2 diabetes mellitus with other diabetic neurological complication; Z79.4 - half-way (current) use of insulin Code(s): E11.9 - Type 2 diabetes mellitus without complications Status: Acute Assessment and Plan: ----a1c 6.2. Continue ssi . (3) Diabetic foot ulcer associated with diabetes mellitus due to underlying condition: Qualifiers: Diabetic foot ulcer location: midfoot Laterality: right Non-pressure ulcer stage: with muscle involvement without evidence of necrosis Qualified Code(s): E08.621 - Diabetes mellitus due to underlying condition with foot ulcer; L97.415 - Non-pressure chronic ulcer of right heel and midfoot with muscle involvement without evidence of necrosis Code(s): E08.621 - Diabetes mellitus due to underlying condition with foot ulcer; L97.509 - Non-pressure chronic ulcer of other part of unspecified foot with unspecified severity Status: Acute Assessment and Plan: ------Pt was seen at [facility] and now has a wound vac and on cefazolin and flagyl. Will continue with that. Wound vac not taken off but area around it looks healthy. Continue f/u as already scheduled. (4) Charcot foot due to diabetes mellitus: Code(s): E11.610 - Type 2 diabetes mellitus with diabetic neuropathic arthropathy Status: Acute Assessment and Plan: ------ He has seen grebbing in the past for this and will likely need a boot if not already getting one. (5) Anemia: Code(s): D64.9 - Anemia, unspecified Status: Acute Assessment and Plan: -----Last hgb 8.0 hct 25.1. He was 10.9 back in january. Will run anemia labs in the am. Could be related to his renal disease. (6) Diabetes mellitus with complication: Code(s): E11.8 - Type 2 diabetes mellitus with unspecified complications Status: Acute Assessment and Plan: -------Last glucose 165. Continue SSI (7) Acute renal failure: Qualifiers: Acute renal failure type: unspecified Qualified Code(s): N17.9 - Acute kidney failure, unspecified Code(s): N17.9 - Acute kidney failure, unspecified Status: Acute Assessment and Plan: -----Resolved. Will continue to monitor. I am holding his metformin for today. (8) Hyperlipidemia: Code(s): E78.5 - Hyperlipidemia, unspecified Status: Chronic Assessment and Plan: -----Continue atorvastatin. (9) Atypical chest pain: Code(s): R07.89 - Other chest pain Status: Acute Assessment and Plan: -----No CP for me here. Trop -x3. A CT was negative for PE. (10) HTN (hypertension), benign: Code(s): I10 - Essential (primary) hypertension Status: Acute Assessment and Plan: -----Last bp 160/80 but was worse on admission. He is on lasix IVP Q12h with hydralazine PRN. Would consider starting BB or ARB. Await echo and margin analyst recommendations. Time Spent With Patient Time with patient: 25 - 35 minutes Subjective Date/time seen: 02/10/20 14:04 Interval history: Pt is a 59 y/o male here for SOB, possible CHF. Pt was seen today and states he is still having [place] but no SOB at r
[2020-02-10] MEDS: ALBUTEROL SULFATE NEB 2.5 MG/0.5 ML INH INHALATION ×2 (15:50→22:51)
--- NOTE | 2020-02-10 16:01 | PM.PNCARD ---
Progress Note: A&P Assessment and Plan (1) Shortness of breath: Code(s): R06.02 - Shortness of breath Status: Acute (2) CHF (congestive heart failure): Qualifiers: Heart failure chronicity: unspecified Heart failure type: unspecified Qualified Code(s): I50.9 - Heart failure, unspecified Code(s): I50.9 - Heart failure, unspecified Status: Acute Assessment and Plan: seems to have acute exacerbation of congestive heart failure, more of her right heart failure, echocardiogram showed normal left ventricular systolic function with dilated right ventricle with evidence of pulmonary hypertension. Will get CTA of the chest to look for possible PE (3) Anemia: Qualifiers: Anemia type: unspecified type Qualified Code(s): D64.9 - Anemia, unspecified Code(s): D64.9 - Anemia, unspecified Status: Acute (4) D-dimer, elevated: Code(s): R79.89 - Other specified abnormal findings of blood chemistry Status: Acute Assessment and Plan: raises suspicion for PE, will get CT of the chest to look for PE (5) Charcot foot due to diabetes mellitus: Code(s): E11.610 - Type 2 diabetes mellitus with diabetic neuropathic arthropathy Status: Acute (6) Atypical chest pain: Code(s): R07.89 - Other chest pain Status: Acute Assessment and Plan: agree with diuresis, eventually he will need to have a stress test whenever his CHF status improved Additional Plan Subjective Date/time seen: 02/10/20 16:01 he feels lot better today, continue to improve as far as leg swelling and shortness of breath, he gets occasional tightness in the chest. Noted to have elevated D-dimer, and his echocardiogram showed right ventricular enlargement with pulmonary hypertension suggest possibility of PE Exam Narrative: Exam Narrative: Awake alert oriented x3 not in acute distress Neck is supple no obvious JVD, no carotid bruit Chest: decreased breathing sound in the bases noted bilaterally Cardiovascular: Regular rate and rhythm, 2/6 systolic murmur noted left sternal border Abdomen: Soft nontender bowel sounds positive Extremities: +2 edema has good pulses distally bilaterally Objective Data Vital Signs Vital Signs: Vital Signs - 24 hr 02/09/20 18:00 02/09/20 20:00 02/09/20 22:00 Temperature 37.0 C 36.8 C Pulse Rate 101 H 66 94 Respiratory Rate 22 H 20 Blood Pressure 174/94 H 204/99 H Pulse Oximetry 96 98 02/10/20 00:00 02/10/20 00:40 02/10/20 00:50 Temperature Pulse Rate 94 102 H 105 H Respiratory Rate 22 H 22 H Blood Pressure Pulse Oximetry 02/10/20 04:00 02/10/20 06:00 02/10/20 08:00 Temperature 36.8 C Pulse Rate 108 H 102 H 101 H Respiratory Rate 18 Blood Pressure 167/88 H Pulse Oximetry 93 02/10/20 08:20 02/10/20 12:00 02/10/20 14:00 Temperature 36.8 C Pulse Rate 94 106 H 110 H Respiratory Rate 20 16 Blood Pressure 160/80 H Pulse Oximetry 96 02/10/20 15:57 Temperature Pulse Rate 92 Respiratory Rate 20 Blood Pressure Pulse Oximetry Intake/Output Intake/Output: Intake & Output 02/07/20 02/08/20 02/09/20 02/10/20 23:59 23:59 23:59 23:59 Intake Total 550 660 Output Total 1950 750 Balance -1400 -90 Meds/Results Medications: Active Medications Generic Name Dose Route Start Last Admin Trade Name Freq PRN Reason Stop Dose Admin Hydrocodone Bitart/Acetaminophen 1 tab 02/09/20 14:48 [place] 5-325 Mg PO Q6H PRN pain Albuterol 2.5 mg 02/10/20 15:46 02/10/20 15:50 Albuterol Sulf Neb 2.5mg/0.5ml INHALATION 2.5 mg Q6HRT PRN Administration Shortness Of Breath Aspirin 81 mg 02/10/20 08:00 02/10/20 08:07 Aspirin Chewable PO 81 mg DAILY@0800 NOLA Administration Atorvastatin Calcium 20 mg 02/10/20 09:00 02/10/20 08:07 Lipitor PO 20 mg DAILY NOLA Administration Dextrose 12.5 gm 02/09/20 14:34 Dextrose 5
[2020-02-10 17:46] LABS: Glucose Point of Care 157 (65-105)
[2020-02-10] MEDS: traZODone HCL 50 MG TABLET 150 MG PO (20:49)
[2020-02-10] MEDS: INSULIN DETEMIR 100 UNITS/ML 30 UNITS SUB-Q (20:51)
[2020-02-10 22:56] LABS: Glucose Point of Care 164 (65-105)
[2020-02-11] VITALS (11 sets, daily range): BP systolic 139–163; BP diastolic 81–87; PULSE 93–119; RESP 18–22; TEMP 36.7–37.1; O2SAT 90–92
[2020-02-11] MEDS: ALBUTEROL SULFATE NEB 2.5 MG/0.5 ML INH INHALATION ×2 (04:58→22:49)
[2020-02-11 05:51] LABS: Hematocrit 25.9 % (42.0-52.0); Hemoglobin 8.2 g/dL (14.0-18.0); Mean Corpuscular HGB Conc 31.7 g/dl (32-36); Mean Corpuscular Hemoglobin 29.6 pg (26-34); Mean Corpuscular Volume 93.5 fl (80-100); Mean Platelet Volume 10.1 fl (7.4-10.4); Platelet Count Result 292 k/mm3 (150-375); Red Blood Count 2.77 M/mm3 (4.6-6.20); Red Cell Distribution Width 13.2 % (11.5-14.5); White Blood Count 5.9 K/mm3 (4.5-10.0)
[2020-02-11 06:20] LABS: Anion Gap 11.6 mmol/L (7-16); Blood Urea Nitrogen 25 mg/dL (9-20); Calcium 8.6 mg/dL (8.4-10.2); Carbon Dioxide 30 mmol/L (22-30); Chloride 101 mmol/L (98-107); Estimated CRCL calculation 87 ml/min; Estimated Glomerular Filt Rate > 60; Glucose 170 mg/dL (75-110); Magnesium 1.6 mg/dL (1.6-2.3); Potassium 4.6 mmol/L (3.4-5.0); Sodium 138 mmol/L (137-145)
[2020-02-11 06:29] LABS: Transferrin 167 mg/dL (206-381)
[2020-02-11] MEDS: ceFAZolin 2 GM/D5W 50 ML 2 GM/50 ML BAG IVPB ×3 (06:32→21:03)
[2020-02-11] MEDS: metroNIDAZOLE 250 MG TABLET 500 MG PO ×3 (06:35→21:01)
[2020-02-11 06:59] LABS: Iron 46 ug/dL (49-181)
[2020-02-11 07:08] LABS: Percent Iron Saturation 18 % (20-50)
[2020-02-11 07:26] LABS: Folic Acid 9.8 ng/mL (2.76->20)
[2020-02-11] MEDS: ONDANSETRON INJ 4 MG/2 ML VIAL IV PUSH (08:03)
[2020-02-11] MEDS: ASPIRIN 81 MG CHEWABLE TABLET PO (09:06)
[2020-02-11] MEDS: ATORVASTATIN 20 MG TABLET PO (09:07)
[2020-02-11] MEDS: ENOXAPARIN 40 MG/0.4 ML SYRINGE SUB-Q (09:07)
[2020-02-11] MEDS: PANTOPRAZOLE 40 MG TABLET PO (09:07)
[2020-02-11] MEDS: FUROSEMIDE INJ 40 MG/4 ML VIAL IV PUSH ×2 (09:08→21:01)
[2020-02-11 10:02] LABS: Glucose Point of Care 175 (65-105)
[2020-02-11 12:31] LABS: Glucose Point of Care 178 (65-105)
--- NOTE | 2020-02-11 14:05 | PM.PNCARD ---
Progress Note: A&P Assessment and Plan (1) HTN (hypertension), benign: Code(s): I10 - Essential (primary) hypertension Status: Acute Assessment and Plan: not well controlled (ER 176/101) will adjust meds (2) Hyperlipidemia: Code(s): E78.5 - Hyperlipidemia, unspecified Status: Chronic Assessment and Plan: well controlled cont current meds (3) Shortness of breath: Code(s): R06.02 - Shortness of breath Status: Acute Assessment and Plan: Improving probably due to underlying lung condition ECHO showed normal LV systolic funtion and pulmonary HTN CT of chest negative for pulmonary embolism management per PC and pulmonary Subjective Date/time seen: 02/11/20 14:05 Pt feels fine. No CP or palpitations. His SOB is improving. Pt was seen and examined, chart reviewed, case d/w pt's family and his nurse. Review of Systems Review of Systems: All systems reviewed & are unremarkable except as noted in HPI and below Constitutional: Constitutional: Reports as per HPI Eyes: Eyes: Reports as per HPI ENT: Reports system reviewed and no additional complaints, except as documented and Reports as per HPI Cardiovascular: Cardiovascular: Reports as per HPI Respiratory: Respiratory: Reports as per HPI Gastrointestinal: Gastrointestinal: Reports as per HPI Genitourinary: Genitourinary: Reports as per HPI Musculoskeletal: Musculoskeletal: Reports as per HPI Exam Const: General: no acute distress Nutritional Appearance: well nourished Orientation/consciousness: patient oriented x3 HENMT: Head: normal to inspection and atraumatic Ears: hearing grossly normal bilaterally Face and sinus: normal facial exam Eyes: General: appearance normal, both eyes and all related structures Pupils: Equal, round and reactive pupils present EOM: EOMs intact bilaterally Neck: Neck: supple Chest: Chest palpation & inspection: normal inspection of the chest Resp: Effort & Inspection: normal respiratory effort and no respiratory distress Auscultation: clear to auscultation bilaterally Cardio: Jugular venous distension: no JVD Rate: regular rate Heart sounds: S1 normal heart sound present, S2 normal heart sound present and no murmurs Peripheral pulses: Peripheral pulses 2+ throughout GI: GI Palp: No abdominal tenderness Auscultation: normal bowel sounds Skin: General skin exam: normal color Neuro: General: patient oriented x3 Cranial nerves: Yes Equal, round and reactive pupils present Extrem: General: normal to inspection and no clubbing, cyanosis or edema Objective Data Vital Signs Vital Signs: Vital Signs - 24 hr 02/10/20 15:57 02/10/20 16:00 02/10/20 20:00 Temperature Pulse Rate 92 103 H 84 Respiratory Rate 20 Blood Pressure Pulse Oximetry 02/10/20 22:00 02/10/20 22:53 02/10/20 23:03 Temperature 36.7 C Pulse Rate 89 98 102 H Respiratory Rate 18 20 20 Blood Pressure 171/86 H Pulse Oximetry 98 02/11/20 00:00 02/11/20 04:00 02/11/20 04:59 Temperature Pulse Rate 99 93 97 Respiratory Rate 22 H Blood Pressure Pulse Oximetry 02/11/20 06:00 02/11/20 08:00 02/11/20 12:00 Temperature 36.7 C Pulse Rate 98 119 H 110 H Respiratory Rate 18 Blood Pressure 163/87 H Pulse Oximetry 91 Intake/Output Intake/Output: Intake & Output 02/08/20 02/09/20 02/10/20 02/11/20 23:59 23:59 23:59 23:59 Intake Total 550 2100 1000 Output Total 1950 1950 900 Balance -1400 150 100 Meds/Results Medications: Active Medications Generic Name Dose Route Start Last Admin Trade Name Freq PRN Reason Stop Dose Admin Hydrocodone Bitart/Acetaminophen 1 tab 02/09/20 14:48 02/11/20 12:31 [place] 5-325 Mg PO 1 tab Q6H PRN Administration pain Albuterol 2.5 mg 02/10/20 15:46 02/11/20 04:58 Albuterol Sulf Neb 2.5mg/0.5ml INHALATION 2.5 mg Q6HRT PRN Administration Shortness Of Breath Aspirin 81 mg
--- NOTE | 2020-02-11 16:18 | PM.IMPN ---
Progress Note: A&P Assessment and Plan (1) CHF (congestive heart failure): Qualifiers: Heart failure chronicity: unspecified Heart failure type: unspecified Qualified Code(s): I50.9 - Heart failure, unspecified Code(s): I50.9 - Heart failure, unspecified Status: Acute Assessment and Plan: -----suspected CHF with exam and CT findings but echo does not reports this. Spoke with Cardiology who thinks it is more of a lung problem. The patient definitely has sleep apnea and would benefit from a CPAP. His pulmonary edema and pleural effusions do suggest a heart failure component. He is feeling better with IV Lasix. 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 Continue ssi . 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 Will continue with that. Wound vac not taken off but area around it looks healthy. Continue f/u as already scheduled. (4) Charcot foot due to diabetes mellitus: Code(s): E11.610 - Type 2 diabetes mellitus with diabetic neuropathic arthropathy Status: Acute Assessment and Plan: ------ He has seen grekatieing in the past for this and will likely need a boot if not already getting one. (5) Anemia: Code(s): D64.9 - Anemia, unspecified Status: Acute Assessment and Plan: -----Last hgb 8.2. He was 10.9 back in january. anemia labs this morning represent anemia of chronic disease likely from his diabetes. Monitor (6) Diabetes mellitus with complication: Code(s): E11.8 - Type 2 diabetes mellitus with unspecified complications Status: Acute Assessment and Plan: -------Last glucose 178. Continue SSI (7) Acute renal failure: Qualifiers: Acute renal failure type: unspecified Qualified Code(s): N17.9 - Acute kidney failure, unspecified Code(s): N17.9 - Acute kidney failure, unspecified Status: Acute Assessment and Plan: -----Resolved. Will continue to monitor. continue holding metformin (8) Hyperlipidemia: Code(s): E78.5 - Hyperlipidemia, unspecified Status: Chronic Assessment and Plan: -----Continue atorvastatin. (9) Atypical chest pain: Code(s): R07.89 - Other chest pain Status: Acute Assessment and Plan: -----No CP for me here. Trop -x3. A CT was negative for PE. (10) HTN (hypertension), benign: Code(s): I10 - Essential (primary) hypertension Status: Acute Assessment and Plan: -----Last bp 139/87. Cardiology has started Cardizem. Will monitor him on telemetry overnight. He does sometimes dropped his heart rate while sleeping likely due to sleep apnea. Kiera
[2020-02-11] MEDS: dilTIAZem HCL 30 MG TABLET PO (17:25)
[2020-02-11 19:01] LABS: Glucose Point of Care 138 (65-105)
[2020-02-11] MEDS: traZODone HCL 50 MG TABLET 150 MG PO (21:01)
[2020-02-11] MEDS: INSULIN DETEMIR 100 UNITS/ML 30 UNITS SUB-Q (21:01)
[2020-02-11 22:36] LABS: Glucose Point of Care 204 (65-105)
[2020-02-12] VITALS (9 sets, daily range): BP systolic 129–166; BP diastolic 66–86; PULSE 94–115; RESP 18–20; TEMP 36.9–37.2; O2SAT 90–94
[2020-02-12] MEDS: metroNIDAZOLE 250 MG TABLET 500 MG PO ×2 (06:16→13:08)
[2020-02-12] MEDS: dilTIAZem HCL 30 MG TABLET PO ×2 (06:16→13:08)
[2020-02-12] MEDS: ceFAZolin 2 GM/D5W 50 ML 2 GM/50 ML BAG IVPB ×2 (06:16→13:12)
[2020-02-12 06:36] LABS: Hematocrit 27.9 % (42.0-52.0); Hemoglobin 8.7 g/dL (14.0-18.0)
[2020-02-12 06:45] LABS: Anion Gap 7 mmol/L (8-16); Blood Urea Nitrogen 27 mg/dL (9-20); Calcium 8.5 mg/dL (8.4-10.2); Carbon Dioxide 30 mmol/L (22-30); Chloride 100 mmol/L (98-107); Estimated CRCL calculation 80 ml/min; Estimated Glomerular Filt Rate > 60; Glucose 174 mg/dL (75-110); Potassium 5.2 mmol/L (3.4-5.0); Sodium 137 mmol/L (137-145)
[2020-02-12 08:46] LABS: Glucose Point of Care 158 (65-105)
[2020-02-12] MEDS: ENOXAPARIN 40 MG/0.4 ML SYRINGE SUB-Q (08:58)
[2020-02-12] MEDS: ASPIRIN 81 MG CHEWABLE TABLET PO (08:58)
[2020-02-12] MEDS: ATORVASTATIN 20 MG TABLET PO (08:58)
[2020-02-12] MEDS: FUROSEMIDE INJ 40 MG/4 ML VIAL IV PUSH (08:58)
[2020-02-12] MEDS: PANTOPRAZOLE 40 MG TABLET PO (08:58)
[2020-02-12 12:03] LABS: Glucose Point of Care 162 (65-105)
--- NOTE | 2020-02-12 13:43 | PM.PNCARD ---
Progress Note: A&P Assessment and Plan (1) HTN (hypertension), benign: Code(s): I10 - Essential (primary) hypertension Status: Acute Assessment and Plan: Initially elevated meds adjusted now better controlled (2) Hyperlipidemia: Code(s): E78.5 - Hyperlipidemia, unspecified Status: Chronic (3) Shortness of breath: Code(s): R06.02 - Shortness of breath Status: Acute Assessment and Plan: Pt does have underlying lung condition ECHO showed noirmal LV systolif=c function and dilated RV Had sleep study last nigh would benefit from pulmonary eval on outpt basis (4) Morbid (severe) obesity due to excess calories: Code(s): E66.01 - Morbid (severe) obesity due to excess calories Status: Acute Assessment and Plan: Pt appears stable from cardiac standpoint. In case of dc fu with Dr. Sanchez in one week. Subjective Date/time seen: 02/12/20 13:43 Pt feels better today. He had sleep study last night, results pending. Pt was seen and examined, case d/w hospitalist team and pt's nurse. Review of Systems Review of Systems: All systems reviewed & are unremarkable except as noted in HPI and below Constitutional: Constitutional: Reports as per HPI Eyes: Eyes: Reports as per HPI ENT: Reports system reviewed and no additional complaints, except as documented and Reports as per HPI Cardiovascular: Cardiovascular: Reports as per HPI Respiratory: Respiratory: Reports as per HPI Gastrointestinal: Gastrointestinal: Reports as per HPI Genitourinary: Genitourinary: Reports as per HPI Musculoskeletal: Musculoskeletal: Reports as per HPI Exam Const: General: no acute distress Nutritional Appearance: well nourished Orientation/consciousness: patient oriented x3 HENMT: Head: normal to inspection and atraumatic Ears: hearing grossly normal bilaterally Face and sinus: normal facial exam Eyes: General: appearance normal, both eyes and all related structures Pupils: Equal, round and reactive pupils present EOM: EOMs intact bilaterally Neck: Neck: supple Chest: Chest palpation & inspection: normal inspection of the chest Resp: Effort & Inspection: normal respiratory effort and no respiratory distress Auscultation: clear to auscultation bilaterally Cardio: Jugular venous distension: no JVD Rate: regular rate Heart sounds: S1 normal heart sound present, S2 normal heart sound present and no murmurs Peripheral pulses: Peripheral pulses 2+ throughout GI: GI Palp: No abdominal tenderness Auscultation: normal bowel sounds Skin: General skin exam: normal color Neuro: General: patient oriented x3 Cranial nerves: Yes Equal, round and reactive pupils present Extrem: General: normal to inspection and no clubbing, cyanosis or edema Objective Data Vital Signs Vital Signs: Vital Signs - 24 hr 02/11/20 14:00 02/11/20 16:00 02/11/20 20:00 Temperature 37.1 C Pulse Rate 115 H 105 H 105 H Respiratory Rate 20 Blood Pressure 139/87 Pulse Oximetry 90 02/11/20 22:00 02/11/20 22:50 02/12/20 00:00 Temperature 36.7 C Pulse Rate 105 H 97 101 H Respiratory Rate 18 22 H Blood Pressure 148/81 H Pulse Oximetry 92 02/12/20 04:00 02/12/20 06:00 02/12/20 08:00 Temperature 36.9 C Pulse Rate 115 H 98 101 H Respiratory Rate 18 Blood Pressure 166/86 H Pulse Oximetry 94 02/12/20 10:00 02/12/20 12:00 Temperature Pulse Rate 102 H 101 H Respiratory Rate 18 Blood Pressure 145/85 H Pulse Oximetry 91 Intake/Output Intake/Output: Intake & Output 02/09/20 02/10/20 02/11/20 02/12/20 23:59 23:59 23:59 23:59 Intake Total 550 2100 1300 430 Output Total 1950 1950 900 200 Balance -1400 150 400 230 Meds/Results Medications: Active Medications Generic Name Dose Route Start Last Admin Trade Name Freq PRN Reason Stop Dose Admin Hydrocodone Bitart/Acetaminophen 1 tab 02/09/20 14:48 02/12/20 08:58 [place] 5-325 Mg PO 1 ta
--- NOTE | 2020-02-12 16:03 | PM.DS ---
DS: Admitting Diagnosis Admitting Diagnosis Admitting Diagnosis: Heart failure, unspecified DS: Discharge Diagnosis Discharge Diagnosis (1) CHF (congestive heart failure): Qualifiers: Heart failure chronicity: unspecified Heart failure type: unspecified Qualified Code(s): I50.9 - Heart failure, unspecified Code(s): I50.9 - Heart failure, unspecified Status: Acute Assessment and Plan: -----suspected CHF with exam and CT findings but echo does not reports this. Spoke with Cardiology who thinks it is more of a lung problem. The patient definitely has sleep apnea and would benefit from a CPAP and plans to f/u with pcp about obtaining this since he has new insurance now. His pulmonary edema and pleural effusions do suggest a heart failure component. He is feeling better with IV Lasix and was discharged on oral. f.u bmp one week, will send to pcp. 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 Continue home meds. 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 Will continue with that at discharge. Wound vac not taken off but area around it looks healthy. Continue f/u as already scheduled. (4) Charcot foot due to diabetes mellitus: Code(s): E11.610 - Type 2 diabetes mellitus with diabetic neuropathic arthropathy Status: Acute Assessment and Plan: ------ He has seen grebbing in the past for this and will likely need a boot if not already getting one. (5) Anemia: Code(s): D64.9 - Anemia, unspecified Status: Acute Assessment and Plan: -----Last hgb 8.7. He was 10.9 back in january. anemia labs this morning represent anemia of chronic disease likely from his diabetes. Monitor (6) Diabetes mellitus with complication: Code(s): E11.8 - Type 2 diabetes mellitus with unspecified complications Status: Acute Assessment and Plan: -------Last glucose 162. Continue home meds (7) Acute renal failure: Qualifiers: Acute renal failure type: unspecified Qualified Code(s): N17.9 - Acute kidney failure, unspecified Code(s): N17.9 - Acute kidney failure, unspecified Status: Acute Assessment and Plan: -----Resolved. Will continue to monitor. continue holding metformin (8) Hyperlipidemia: Code(s): E78.5 - Hyperlipidemia, unspecified Status: Chronic Assessment and Plan: -----Continue atorvastatin. (9) Atypical chest pain: Code(s): R07.89 - Other chest pain Status: Acute Assessment and Plan: -----No CP for me here. Trop -x3. A CT was negative for PE. (10) HTN (hypertension), benign: Code(s):
--- NOTE | 2020-02-14 11:17 | PC.NURSE ---
Received call from patient stating that [facility] Home care did not receive his dc paperwork for wound care instructions. Spoke with Deya, Charge Nurse, on 3 med surg. She states she will refax orders to [facility] at this time. Left message regarding the same for patient.
--- NOTE | 2020-02-15 10:53 | PC.NURSE ---
Blood cx is negative.
== END 2020-02-12 17:45 | disposition home health service (06) | DRG 292 ==
LOC: ANHED 07:06 → ANH3MEDSUR 08:58
PROVIDERS: Emergency Medicine; Family Medicine; Nurse Practitioner; Physician Assistant; Specialist; Admitting Provider Internal Medicine; Emergency Provider General Practice; PCP Family Medicine; Visit Provider Internal Medicine
DX: I11.0 Hypertensive heart disease with heart failure (principal); L97.415 Non-pressure chronic ulcer of right heel and midfoot with muscle involvement without evidence of necrosis; N17.9 Acute kidney failure, unspecified; M86.8X7 Other osteomyelitis, ankle and foot; I50.9 Heart failure, unspecified; I27.20 Pulmonary hypertension, unspecified; E11.621 Type 2 diabetes mellitus with foot ulcer; E11.610 Type 2 diabetes mellitus with diabetic neuropathic arthropathy; E11.69 Type 2 diabetes mellitus with other specified complication; E11.43 Type 2 diabetes mellitus with diabetic autonomic (poly)neuropathy; E11.49 Type 2 diabetes mellitus with other diabetic neurological complication; E11.319 Type 2 diabetes mellitus with unspecified diabetic retinopathy without macular edema; D63.8 Anemia in other chronic diseases classified elsewhere; R07.89 Other chest pain; E78.5 Hyperlipidemia, unspecified; G47.33 Obstructive sleep apnea (adult) (pediatric); E66.01 Morbid (severe) obesity due to excess calories; R79.89 Other specified abnormal findings of blood chemistry; Z11.59 Encounter for screening for other viral diseases; Z79.4 Long term (current) use of insulin; Z79.899 Other long term (current) drug therapy; Z87.891 Personal history of nicotine dependence
CPT/HCPCS: 36415; 36600; 71045; 71275; 80048; 80053; 80061; 82375; 82607; 82728; 82746; 82805; 83036; 83050; 83540; 83550; 83605; 83735; 83880; 84466; 84484; 85014; 85018; 85025; 85027; 85380; 85610; 85730; 87040; 87635; 93005; 93306; 94640; 94762; 96374; 99285; A9270; C9803; J0360; J0690; J1650; J1815; J1940; J2060; J2405; Q9967; U0003

== ENCOUNTER 2020-02-19 10:19 | Outpatient (CLI) | payer OTHER, SELFPAY ==
[2020-02-19 11:25] LABS: Anion Gap 7 mmol/L (8-16); Blood Urea Nitrogen 23 mg/dL (9-20); Calcium 8.4 mg/dL (8.4-10.2); Carbon Dioxide 29 mmol/L (22-30); Chloride 103 mmol/L (98-107); Estimated Glomerular Filt Rate 52; Glucose 131 mg/dL (75-110); Potassium 4.6 mmol/L (3.4-5.0); Sodium 139 mmol/L (137-145)
== END 2020-02-19 10:20 | disposition home or self-care (01) ==
PROVIDERS: PCP Family Medicine; Referring Provider Family Medicine; Visit Provider Physician Assistant
DX: I50.9 Heart failure, unspecified (principal)
CPT/HCPCS: 36415; 80048

== ENCOUNTER 2020-03-01 01:20 | Outpatient (CLI) | payer OTHER, SELFPAY ==
[2020-03-01 18:19] LABS: SARS-CoV-2 RNA PCR Negative
== END 2020-03-01 01:21 | disposition home or self-care (01) ==
LOC: ANHCOVIDDT 01:20
PROVIDERS: PCP Family Medicine; Visit Provider Orthopaedic Surgery
DX: Z01.812 Encounter for preprocedural laboratory examination (principal); Z20.828 Contact with and (suspected) exposure to other viral communicable diseases
CPT/HCPCS: 87635; C9803; U0003

== ENCOUNTER 2020-03-03 09:04 | Inpatient (IN) | payer OTHER, SELFPAY ==
[2020-02-29 15:46] VITALS: BMI 41.1
[2020-03-02] VITALS (24 sets, daily range): BP systolic 77–119; BP diastolic 44–94; PULSE 90–118; RESP 11–24; TEMP 36.1–36.4; O2SAT 93–99; BMI 40.8
--- NOTE | 2020-03-02 07:01 | WPDHPUPDATE1 ---
History and Physical Update Update Date/Time: 03/02/20 07:01 History and Physical has been reviewed, including an updated exam of the patient. There are NO changes in the patient's condition. Risks, benefits, and alternatives have been discussed and questions answered. Patient agrees to proceed with procedure.
--- NOTE | 2020-03-02 07:08 | WPDANESEPPF ---
Anes - Initial Pre Proc Eval Procedure: Operation Date: 03/02/20 08:30 Proposed Procedures p Right Transtibial Amputation, Possible Tibiofibular Arthrodesis - Canelo Guevara MD Date/Time: 03/02/20 07:08 Surgeon: Canelo Guevara MD Pre Op Diagnosis: Rt Osteomyelitis/ Diabetic Foot Ulcer Patient Data Age: 59 Gender: M Height: 1.7 m Weight: 119.29 kg Allergies Allergy/AdvReac Type Severity Reaction Status Date / Time amoxicillin AdvReac Unknown Nausea Verified 02/29/20 15:47 Home Medications Medication Instructions Recorded Confirmed Type blood sugar diagnostic #100 each 06/29/19 02/09/20 Rx insulin detemir U-100 100 unit/mL 30 unit SUBCUT HS ml 08/02/19 02/29/20 History (3 mL) subcutaneous pen atorvastatin 20 mg tablet 20 mg PO DAILY #90 tablet 09/20/19 02/29/20 Rx pen needle, diabetic 31 gauge x #1,200 each 09/23/19 02/09/20 Rx /16 semaglutide 1 mg/dose (2 mg/1.5 1 mg SUB-Q WEEKLY #10.5 ml 10/06/19 02/29/20 Rx mL) subcutaneous pen injector pantoprazole 40 mg tablet,delayed 40 mg PO QAM #90 tablet 12/27/19 02/29/20 Rx release hydrocodone 5 mg-acetaminophen 325 1 tablet PO Q6H PRN #30 tablet 02/03/20 02/29/20 Rx mg tablet metformin 500 mg tablet,extended 2,000 mg PO QPM #360 tablet 02/07/20 02/29/20 Rx release 24 hr cefazolin in 0.9% sod chloride 2 g IV Q8H 02/09/20 02/29/20 History metronidazole 500 mg PO TID 02/09/20 02/29/20 History albuterol sulfate 2 inhalation INHALATION Q6H PRN #1 02/12/20 02/29/20 Rx each diltiazem HCl 120 mg PO DAILY #30 cap 02/13/20 02/29/20 Rx furosemide [Lasix] 40 mg PO DAILY #30 tablet 02/13/20 02/29/20 Rx diclofenac sodium 75 mg PO HS 02/29/20 02/29/20 History insulin aspart U-100 [Novolog 10 unit SUBCUT TID 02/29/20 02/29/20 History Flexpen U-100 Insulin] trazodone 150 mg PO HS 02/29/20 02/29/20 History Patient hx anesthesia problems: none Family hx anesthesia problems: none PMFSH Social History Social History Social History: The patient lives with his and she is a durable power energy attorney for healthcare. The patient desires to be a full code. He is a former smoker. 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 He has 1 daughter who is healthy. Primary care provider: Dr. Elias Montalvo Code status: Full code Advanced directives: None Smoking packs per day: 2 Smoking cigarettes per day: 40.0 Years smoked: 20 Smoking pack-years: 40.00 Smoking status: Former smoker Tobacco type: cigarettes Smoking end date: 12/05/97 Additional smoking assessment comments: QUIT 1997 Alcohol intake: never Drinks per week: 1 Substance use: never Substance use type: does not use Additional living arrangements comments: He lives with his of 26 years. He has 1 adult daughter who is healthy. 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 Gender identity (if verbalized by the patient): Male Spiritual care concerns: No Anes - Eval Final PreProcedure Day of Procedure 03/02/20 07:08 Patient weight: morbidly obese Heart: regular rate and rhythm Lungs: clear to auscultation and normal air movement Airway: Mallampati scale class III Neurological: alert and oriented Last oral intake: >/= 8 hours ASA classification: IV Emergent: no Anesthetic plan: proceed Anesthesia type and monitoring: general LMA and standard monitoring Informed Consent: The patient's anesthetic plan and its attendant risks and benefits were discussed with the patient/family/POA. Questions were solicited and answers provided to the satisfaction of the patient/family/POA.
[2020-03-02] MEDS: ACETAMINOPHEN 500 MG TABLET 1000 MG PO (07:12)
[2020-03-02] MEDS: LACTATED RINGERS 1,000 ML 30 ML IV CONT ×2 (07:20→10:25)
[2020-03-02] MEDS: KETOROLAC 15 MG/ML VIAL (*BKC) IV PUSH (07:24)
[2020-03-02 07:33] LABS: Glucose Point of Care 132 (65-105)
[2020-03-02] MEDS: ceFAZolin 2 GM/D5W 50 ML 2 GM/50 ML BAG IVPB ×3 (07:40→23:55)
--- NOTE | 2020-03-02 08:57 | SUR.PREOP ---
[id number] WITH , SHANNAN TO OBTAIN DISPOSAL OF LIMB CONSENT WITH Aggie LEVY RN
[2020-03-02] MEDS: BUPIVACAINE/EPINEPHRINE 0.5% 30 ML VIAL 60 ML INFILTRATE (09:05)
--- NOTE | 2020-03-02 10:40 | PM.PROC ---
Procedure Note - Detailed Date of procedure: 03/02/20 Pre-op diagnosis: Rt Osteomyelitis/ Diabetic Foot Ulcer Post-op diagnosis: same Procedure performed: right transtibial amputation, tibia fibular arthrodesis, cast fitting Description of procedure: Indications: Patient is a 59-year-old man with type II diabetes and peripheral neuropathy, history of recurrent ulcerations, infections and osteomyelitis foot. Status post previous multiple surgical debridements. Patient was admitted with diabetic foot ulceration and infection. Chance of successful salvage minimal which would require multiple surgeries and constant care with custom bracing postoperatively. Patient at risk for sepsis and further infection. Patient and family desired definitive treatment with transtibial amputation. What was done: Patient identified in the preoperative holding. Informed consent given. Operative extremity marked. Patient received intravenous antibiotics. Patient brought to the operating room where underwent general anesthetic by anesthesia team. Positioned supine on operating room table. Time-out performed confirming the patient, site of the surgery and the plan. Leg then prepped and draped usual sterile surgical fashion using Betadine prep solution. Calf and leg exsanguinated and a thigh tourniquet inflated to 250 mmHg. Anatomic landmarks mapped out on the skin to allow for a posterior flap and approximately 12 cm of tibia below the tibial tubercle. Skin incision made with a 10 blade knife. Hemostasis controlled electrocautery. Cautery dissection carried down circumferentially through the fascia. Dissection then carried around the proximal fibula, retractors placed and sagittal saw used to transect the fibula. Elevator used to dissect soft tissue off of the tibia. Tibia once again measured and the tibia osteotomy performed with a sagittal saw with retractors posterior to protect the soft tissue. Saphenous vessels and peroneal vessels were identified and ligated with 2 0 silk suture. The peroneal nerve and saphenous nerve identified and anesthetized with 0.5% Marcaine with epinephrine and ligated. Tibia was then brought forward and an amputation knife was placed posterior to the tibia and the distal fibula and the soft tissue was transected away from the bone. The cut was completed through the Achilles tendon. The distal leg ankle and foot were then passed off as specimen. Tibial artery identified and ligated with 2 0 silk suture. Tibial nerve identified and anesthetized with 0.5% Marcaine with epinephrine and ligated. Any other bleeding points coagulated with cautery. The tourniquet was then released. Any further bleeding was controlled with cautery or 2 0 silk suture ligation. After thorough hemostasis the wound was thoroughly irrigated with antibiotic solution. The anterior cortex of the tibia was shaped with the saw to reduce pressure. Thorough irrigation again performed. Myodesis was then performed of the gastrocnemius over the distal tibia using #2 Ethibond suture placed through trans osseous holes in the distal tibia. Proximal tibia fibula arthrodesis then performed. Second cut made at the distal fibula and the interval segment was rotated 90? into the space between the tibia and fibula. Guide pin placed from the fibula through the intercalary bone piece and into the tibia. Reaming then done with the cannulated drill. Bone thoroughly irrigated. Tight rope passed from the fibula through the intercalary bone piece and through the tibia. Medial button was flipped and suture was secured laterally compressing the arthrodesis site. Suture was cut. Fascia then repaired with 0 Vicryl interrupted suture. Subcutaneous tissue repaired with 2 O Vicryl 3 0 Monocryl interrupted suture and skin repaired with lea. Sterile dressing followed by a immediate fitting weight-bearing cast using fiberglass cast material. Patient awoken from anesthesia, extubated and taken to
--- NOTE | 2020-03-02 10:42 | SUR.PHASEI ---
1035- BLAST SETTER AND DR. RIOS AT BEDSIDE. PT STATED SURGICAL PAIN 03/16. BLOOD PRESSURE LOW 70'S OVER 40'S. HEART RATE 110. SURGICAL LEG IN CAST AND ELEVATED ON PILLOW.
[2020-03-02] MEDS: hetaSTARCH 6%/NACL 500 ML IV CONT (10:52)
[2020-03-02 10:55] LABS: Glucose Point of Care 209 (65-105)
[2020-03-02] MEDS: HYDROCORTISONE SODIUM SUCCINATE 100 MG/2 ML VIAL IV PUSH (10:58)
[2020-03-02] MEDS: INSULIN HUMAN REGULAR (*BKC) 100 UNITS/ML 6 UNITS SUB-Q (11:04)
--- NOTE | 2020-03-02 11:42 | SUR.PHASEI ---
1142- UPDATED DR. HERRING IN PT STATUS. HE STATED PT CAN GO TO IMU. HE STATED THAT PT CAN GET DIAZEPAM TO HELP RELAX MUSCLE. SPOKE WITH DR. BANERJEE AND HE STATED TO GIVE DIAZEPAM 2.5 MG IVP. PT bp 96/55. PT AOX3. BREATHING UNLABORED. CAST ELEVATED ON PILLOW.
[2020-03-02 12:31] LABS: Glucose Point of Care 187 (65-105)
--- NOTE | 2020-03-02 12:40 | PC.NURSE ---
This patient, Neil Haines, was admitted to IMU Room 213-01. Patient/family oriented to hospital policies and general routines including ID bracelet, bed and alarms, visiting hours, pain management, procedures, bathroom and other care routines, personal items, smoking policy, room service/diet, and visiting hours. Valuables list has been completed. Information on how to activate the Rapid Response Team has been discussed. Patient/Family are encouraged to report perceived risks to care and to ask questions if they do not understand what they are told or what they should do.
--- NOTE | 2020-03-02 13:12 | PM.IMCN ---
Assessment and Plan Assessment and plan (1) S/P BKA (below knee amputation): Code(s): Z89.519 - Acquired absence of unspecified leg below knee Status: Acute Assessment and Plan: postsurgical care per Dr. Pierre. patient has DVT prophylaxis per surgeon it looks like SCDs were ordered for the left leg. Patient talks is if he is going to get a prosthesis for the right leg wound is healed. (2) HTN (hypertension), benign: Code(s): I10 - Essential (primary) hypertension Status: Acute Assessment and Plan: The patient is hypotensive at this time. Please monitor blood pressure carefully as his diltiazem had been continued. His Lasix was continued as well. His blood pressure may be low due to anesthesia. (3) Hyperlipidemia: Code(s): E78.5 - Hyperlipidemia, unspecified Status: Chronic Assessment and Plan: His Lipitor was continued. (4) Anemia: Code(s): D64.9 - Anemia, unspecified Status: Acute Assessment and Plan: I ordered another CBC for now. Please continue to monitor. (5) Sleep apnea, unspecified: Qualifiers: Sleep apnea type: obstructive Qualified Code(s): G47.33 - Obstructive sleep apnea (adult) (pediatric) Code(s): G47.30 - Sleep apnea, unspecified Status: Acute (6) Diabetes mellitus with complication: Code(s): E11.8 - Type 2 diabetes mellitus with unspecified complications Status: Acute Assessment and Plan: Accu-Cheks AC and HS with moderate sliding scale. His long-acting is on hold at this time. His Ozempic may be non formulary. His metformin was continued we need to monitor his kidney functions. HPI Data of Consult Consult date: 03/02/20 Requesting Physician: Canelo Guevara MD Primary Care Provider: Elias Montalvo MD Consult Narrative Narrative: Neil Haines is a 59 year old male Whom I have seen her earlier this month. The patient has been checked for covid 19 at least 5 times now. Each time has been negative. He denies any shortness of breath fever chills or cough. The hospitalist team was consulted for postop care he had a right [id number] amputation today due to right osteomyelitis and diabetic foot ulcer. Patient currently has a cast. He has diabetes type 2 with peripheral neuropathy and recurrent Charcot aid foot. The patient had been on long-term antibiotics and still continue to have problems. See procedure note per . Patient's blood pressure lowest point was 77/46. It is now 114/57. There is some concerns about his low blood pressure and he was admitted to IMU. This could be related to sedation. It looks like he was given nor can today. He was also given Solu-Cortef x1. His last known H&H was 8.7 and 27.9 dated 02/12/2020. His blood sugar was 209. It looks like the patient had gotten IV insulin x1 as well. Date of consult is 03/02/2020 Review of Systems Review of Systems: Narrative: he complains of right inner thigh pain specially when he moves his right leg. All systems reviewed & are unremarkable except as noted in HPI and below Constitutional: Constitutional: Reports as per HPI and Reports no additional constitutional complaints Eyes: Eyes: Reports as per HPI and Reports no additional eye complaints ENT: Reports system reviewed and no additional complaints, except as documented and Reports Normal hearing present Cardiovascular: Cardiovascular: Reports no additional cardiovascular complaints Respiratory: Respiratory: Reports as per HPI and Reports no additional respiratory complaints Gastrointestinal: Gastrointestinal: Reports as per HPI and Reports no additional gastrointestinal complaints Musculoskeletal: Musculoskeletal: Reports no additional musculoskeletal complaints Integumentary/Breasts: Skin/Breast: Reports system reviewed and no additional complaints, except as docu Neurologic: Reports system reviewed and no additional co
--- NOTE | 2020-03-02 13:23 | PCPTNOTE ---
Attempted PT eval. Juliet VELARDE stated to hold therapy due to low BP and up in chair orders for tomorrow. Will try again tomorrow.
[2020-03-02 13:26] LABS: Basophils Percent Auto 0.3 % (0.2-1.2); Eosinophils Percent Auto 0.3 % (0-4.4); Hematocrit 26.2 % (42.0-52.0); Hemoglobin 8.4 g/dL (14.0-18.0); Immature Granulocyte Absolute 0.03 K/mm3 (0.00-0.031); Immature Granulocyte Percent A 0.5 % (0-0.5); Lymphocytes Absolute Auto 0.42 K/mm3 (0.9-3.2); Lymphocytes Percent Auto 6.5 % (18.3-44.2); Mean Corpuscular HGB Conc 32.1 g/dl (32-36); Mean Corpuscular Volume 93.6 fl (80-100); Mean Platelet Volume 10.4 fl (7.4-10.4); Monocytes Absolute Auto 0.2 K/mm3 (0.1-0.6); Monocytes Percent Auto 3.7 % (2.6-8.5); Neutrophils Absolute Auto 5.7 K/mm3 (1.3-6.7); Neutrophils Percent Auto 88.7 % (45.5-73.1); Platelet Count Result 230 k/mm3 (150-375); Red Cell Distribution Width 13.4 % (11.5-14.5); White Blood Count 6.5 K/mm3 (4.5-10.0)
[2020-03-02 13:41] LABS: Alanine Aminotransferase 7 U/L (4-50); Albumin Level 3.5 g/dL (3.5-5.1); Alkaline Phosphatase 64 U/L (38-126); Anion Gap 7 mmol/L (8-16); Aspartate Amino Transferase 17 U/L (17-59); Bilirubin,Total 0.2 mg/dL (0.2-1.3); Blood Urea Nitrogen 28 mg/dL (9-20); Calcium 8.4 mg/dL (8.4-10.2); Carbon Dioxide 26 mmol/L (22-30); Chloride 101 mmol/L (98-107); Estimated CRCL calculation 64 ml/min; Estimated Glomerular Filt Rate 52; Glucose 184 mg/dL (75-110); Potassium 5.3 mmol/L (3.4-5.0); Sodium 134 mmol/L (137-145)
[2020-03-02] MEDS: MORPHINE SULFATE 4 MG/ML INJ 3 MG IV PUSH ×2 (14:15→17:24)
[2020-03-02] MEDS: metroNIDAZOLE 250 MG TABLET 500 MG PO ×2 (14:19→21:36)
[2020-03-02] MEDS: KCL 20 MEQ/D5/0.45% SOD CHL 1,000 ML 80 ML IV CONT (14:52)
[2020-03-02 17:22] LABS: Glucose Point of Care 211 (65-105)
[2020-03-02] MEDS: diazePAM 5 MG TABLET PO (17:24)
[2020-03-02] MEDS: metFORMIN HCL XR 500 MG TAB.SR.24H 2000 MG PO (17:25)
[2020-03-02] MEDS: INSULIN ASPART (*BKC) 100 UNITS/ML SUB-Q (17:26)
[2020-03-02] MEDS: KETOROLAC 30 MG/ML VIAL (*BKC) IV PUSH (19:00)
[2020-03-02 21:13] LABS: Glucose Point of Care 163 (65-105)
[2020-03-02] MEDS: FAMOTIDINE 20 MG TABLET PO (21:36)
[2020-03-02] MEDS: traZODone HCL 50 MG TABLET 150 MG PO (21:36)
--- NOTE | 2020-03-02 21:37 | PM.PNORT ---
Progress Note: A&P Assessment and Plan (1) S/P BKA (below knee amputation): Qualifiers: Laterality: right Qualified Code(s): Z89.511 - Acquired absence of right leg below knee Code(s): Z89.519 - Acquired absence of unspecified leg below knee Status: Acute Assessment and Plan: postoperative day 0 right below-knee amputation with cast. Presented to see patient secondary to uncontrolled pain. Morphine WINDOW FRAMER started approximately 3 hours ago. Single dose of Toradol given. Patient states now feeling better pain relief. Patient is awake and alert and oriented x3. He appears comfortable in bed. He is watching TV. His blood pressure is slowly improving. He converses normally without any anxiety or signs of discomfort. Right leg cast bivalved to relieve any pressure and prevent further pressure. Patient states some relief with bivalving performed. Soft wrap applied to the cast to keep in place. No drainage noted through padding beneath fiberglass. Continue with morphine WINDOW FRAMER tonight. Will try to wean off tomorrow. Patient comfortable at this time. Will re-evaluate postoperative day 1 rounds. Subjective Subjective Date/Time Seen: 03/02/20 21:37 Right below-knee amputation today with cast. Patient has had trouble with pain control since coming out of general anesthesia. Difficulty giving pain medicine secondary to hypotension. Patient went from oral medication to IV bolus now to WINDOW FRAMER. Complains of calf pain posterior aspect of the leg. Unrelieved with elevation, ice and positioning. Feels like cast is too tight and that his leg is going to explode . Review of Systems Review of Systems: Narrative: he complains of right inner thigh pain specially when he moves his right leg. All systems reviewed & are unremarkable except as noted in HPI and below Constitutional: Constitutional: Reports as per HPI and Reports no additional constitutional complaints Eyes: Eyes: Reports as per HPI and Reports no additional eye complaints ENT: Reports system reviewed and no additional complaints, except as documented and Reports Normal hearing present Cardiovascular: Cardiovascular: Reports no additional cardiovascular complaints Respiratory: Respiratory: Reports as per HPI and Reports no additional respiratory complaints Gastrointestinal: Gastrointestinal: Reports as per HPI and Reports no additional gastrointestinal complaints Musculoskeletal: Musculoskeletal: Reports no additional musculoskeletal complaints Integumentary/Breasts: Skin/Breast: Reports system reviewed and no additional complaints, except as docu Neurologic: Reports system reviewed and no additional complaints, except as documented and Reports Normal hearing present Psychiatric: Psychiatric: Reports no additional psychiatric complaints and Reports as per HPI Endocrine: Endocrine: Reports no additional endocrine complaints Hematologic/Lymphatic: Hematologic/Lymphatic: Reports no additional hematologic/lymphatic complaints Allergic/Immunologic: Allergic/Immunologic: Reports no additional allergic/immunologic complaints Exam Const: General: healthy appearing; No in distress or confusion Orientation/consciousness: patient oriented x3 and No confusion HENMT: Head: normal to inspection, normocephalic and atraumatic Eyes: Conjunctivae: conjunctivae normal Sclera: sclerae normal Resp: Effort & Inspection: normal respiratory effort and no audible wheezes Cardio: Jugular venous distension: no JVD Rate: regular rate Rhythm: regular rhythm Neuro: General: patient oriented x3 and No confusion Extrem: Left lower extremity: normal to inspection and foot Details: normal capillary refill, abnormal ROM of toe Details: no pain with active ROM and no pain with passive ROM, vascular exam Details: dorsalis pedis pulse present and normal capillary refill, motor-sensory exam light-touch abnormal in all toes and other ( Negative Homans sign) Other: Immediate
[2020-03-03] VITALS (11 sets, daily range): BP systolic 100–156; BP diastolic 49–88; PULSE 96–117; RESP 18–20; TEMP 36.1–36.9; O2SAT 84–96
--- NOTE | ~2020-03-03 | XR_ITS ---
XR chest 1V portable 03/02/2020 15:07 Indication: PICC line verification Procedure: AP portable chest Comparison: Comparison to multiple prior studies sequentially, with oldest reviewed study dated 12/2017. Findings: PICC line is identified in the left axilla extending into the subclavian region. The distal aspect of the PICC line is now well visualized for confirmation of placement. Borderline heart size. No focal air space disease, pulmonary edema, pleural effusion or suspected pneumothorax. Impression: 1: No acute cardiopulmonary disease. Distal aspect of the PICC line not adequately visualized for con firmation of placement. Reviewed, dictated and finalized at location A. Impression: 1: No acute cardiopulmonary disease. Distal aspect of the PICC line not adequat smitha visualized for confirmation of placement.
[2020-03-03] MEDS: KCL 20 MEQ/D5/0.45% SOD CHL 1,000 ML 80 ML IV CONT ×2 (03:24→16:04)
[2020-03-03 05:13] LABS: Basophils Percent Auto 0.2 % (0.2-1.2); Eosinophils Absolute Auto 0.1 K/mm3 (0-0.3); Eosinophils Percent Auto 1.8 % (0-4.4); Hematocrit 25.6 % (42.0-52.0); Immature Granulocyte Absolute 0.02 K/mm3 (0.00-0.031); Immature Granulocyte Percent A 0.3 % (0-0.5); Lymphocytes Percent Auto 16.1 % (18.3-44.2); Mean Corpuscular HGB Conc 31.3 g/dl (32-36); Mean Corpuscular Volume 95.9 fl (80-100); Mean Platelet Volume 10.7 fl (7.4-10.4); Monocytes Absolute Auto 0.6 K/mm3 (0.1-0.6); Monocytes Percent Auto 9.3 % (2.6-8.5); Neutrophils Absolute Auto 4.5 K/mm3 (1.3-6.7); Neutrophils Percent Auto 72.3 % (45.5-73.1); Platelet Count Result 234 k/mm3 (150-375); Red Blood Count 2.67 M/mm3 (4.6-6.20); Red Cell Distribution Width 13.6 % (11.5-14.5); White Blood Count 6.2 K/mm3 (4.5-10.0)
[2020-03-03 05:26] LABS: Anion Gap 8 mmol/L (8-16); Blood Urea Nitrogen 31 mg/dL (9-20); Calcium 8.4 mg/dL (8.4-10.2); Carbon Dioxide 27 mmol/L (22-30); Chloride 100 mmol/L (98-107); Estimated CRCL calculation 53 ml/min; Estimated Glomerular Filt Rate 42; Glucose 154 mg/dL (75-110); Potassium 4.9 mmol/L (3.4-5.0); Sodium 135 mmol/L (137-145)
[2020-03-03] MEDS: ceFAZolin 2 GM/D5W 50 ML 2 GM/50 ML BAG IVPB (06:33)
[2020-03-03] MEDS: metroNIDAZOLE 250 MG TABLET 500 MG PO ×3 (06:33→20:59)
--- NOTE | 2020-03-03 07:55 | PM.PNORT ---
Progress Note: A&P Assessment and Plan (1) S/P BKA (below knee amputation): Qualifiers: Laterality: right Qualified Code(s): Z89.511 - Acquired absence of right leg below knee Code(s): Z89.519 - Acquired absence of unspecified leg below knee Status: Acute Assessment and Plan: postoperative day 1 right below-knee amputation with cast. Right leg cast bivalved last night. Patient states some relief with bivalving performed, able to sleep. Soft wrap applied to the cast to keep in place. Franky wrap to hold cast for future. No drainage noted through padding beneath fiberglass. Continue with morphine TEST INSPECTION ENGINEER today. Would like to add anti-inflammatory to pain regimen but worsening renal insufficiency noted this morning. Consider gabapentin. Patient on anti-inflammatories at home but will hold for now given worsening renal function. Discussed with patient. Would like to wean off of the TEST INSPECTION ENGINEER which also would help his hypotension. PT/OT today for transfers and ambulation. Doubtful patient able to be discharged today secondary to pain control and immobility. We will continue to reassess. Appreciate hospitalist consultation for assistance with medical management. Subjective Subjective Date/Time Seen: 03/03/20 07:55 Patient awake and alert. Comfortable overnight and able to sleep per nurse's report. Complains of some increased posterior leg pain this morning. TEST INSPECTION ENGINEER usage verified. Review of Systems Review of Systems: Narrative: he complains of right inner thigh pain specially when he moves his right leg. All systems reviewed & are unremarkable except as noted in HPI and below Constitutional: Constitutional: Reports as per HPI and Reports no additional constitutional complaints Eyes: Eyes: Reports as per HPI and Reports no additional eye complaints ENT: Reports system reviewed and no additional complaints, except as documented and Reports Normal hearing present Cardiovascular: Cardiovascular: Reports no additional cardiovascular complaints Respiratory: Respiratory: Reports as per HPI and Reports no additional respiratory complaints Gastrointestinal: Gastrointestinal: Reports as per HPI and Reports no additional gastrointestinal complaints Musculoskeletal: Musculoskeletal: Reports no additional musculoskeletal complaints Integumentary/Breasts: Skin/Breast: Reports system reviewed and no additional complaints, except as docu Neurologic: Reports system reviewed and no additional complaints, except as documented and Reports Normal hearing present Psychiatric: Psychiatric: Reports no additional psychiatric complaints and Reports as per HPI Endocrine: Endocrine: Reports no additional endocrine complaints Hematologic/Lymphatic: Hematologic/Lymphatic: Reports no additional hematologic/lymphatic complaints Allergic/Immunologic: Allergic/Immunologic: Reports no additional allergic/immunologic complaints Exam Const: General: healthy appearing; No in distress or confusion Orientation/consciousness: patient oriented x3 and No confusion HENMT: Head: normal to inspection, normocephalic and atraumatic Eyes: Conjunctivae: conjunctivae normal Sclera: sclerae normal Resp: Effort & Inspection: normal respiratory effort and no audible wheezes Cardio: Jugular venous distension: no JVD Rate: regular rate Rhythm: regular rhythm Neuro: General: patient oriented x3 and No confusion Extrem: Left lower extremity: normal to inspection and foot Details: normal capillary refill, abnormal ROM of toe Details: no pain with active ROM and no pain with passive ROM, vascular exam Details: dorsalis pedis pulse present and normal capillary refill, motor-sensory exam light-touch abnormal in all toes and other ( Negative Homans sign) Other: Immediate amputation cast right leg bivalved last night. One finger of space at the proximal extent. No evidence of drainage. Patient able to actively lift leg Psych: Affect: normal affect
[2020-03-03 08:46] LABS: Glucose Point of Care 171 (65-105)
[2020-03-03] MEDS: diazePAM 5 MG TABLET PO (09:02)
[2020-03-03] MEDS: ATORVASTATIN 20 MG TABLET PO (09:03)
[2020-03-03] MEDS: ENOXAPARIN 30 MG/0.3 ML SYRINGE SUB-Q (09:04)
[2020-03-03] MEDS: FAMOTIDINE 20 MG TABLET PO ×2 (09:05→20:59)
[2020-03-03] MEDS: GABAPENTIN 100 MG CAPSULE PO ×3 (09:05→16:57)
--- NOTE | 2020-03-03 10:10 | WPDANESPN ---
Anes - Prog Note Post-Op Date/Time: 03/03/20 10:10 Cardiovascular status: normal Respiratory status: normal Airway patency: baseline Mental status: baseline Post-Op hydration status: normal Vital Signs: Last Vital Signs Temp 36.1 C L 03/03/20 08:00 Pulse 108 H 03/03/20 08:00 Resp 20 03/03/20 08:00 BP 100/50 L 03/03/20 08:00 Pulse Ox 94 03/03/20 08:00 I/O: Intake & Output 03/02/20 03/03/20 03/03/20 23:59 07:59 15:59 Intake Total 790 1450 270 Output Total 500 Balance 790 950 270 Laboratory Tests 03/03/20 04:50 03/03/20 04:50 03/02/20 03/02/20 03/02/20 10:52 12:29 13:13 WBC 6.5 RBC 2.80 L Hgb 8.4 L Hct 26.2 L MCV 93.6 MCH 30.0 MCHC 32.1 RDW 13.4 Plt Count 230 MPV 10.4 Immature Gran % (Auto) 0.5 Neut % (Auto) 88.7 H Lymph % (Auto) 6.5 L [place] % (Auto) 3.7 Eos % (Auto) 0.3 Baso % (Auto) 0.3 Lymph # (Auto) 0.42 L [place] # (Auto) 0.2 Eos # (Auto) 0.0 Baso # (Auto) 0.0 Abs Immat Gran (auto) 0.03 Absolute Neuts (auto) 5.7 Absolute Nucleated RBC 0.0 Nucleated RBC % 0.0 Sodium Potassium Chloride Carbon Dioxide Anion Gap BUN Creatinine Estim Creat Clear Calc Estimated GFR Glucose POC Capillary Glucose 209 H 187 H Calcium Total Bilirubin AST ALT Alkaline Phosphatase Total Protein Albumin 03/02/20 03/02/20 03/02/20 13:13 17:11 21:00 WBC RBC Hgb Hct MCV MCH MCHC RDW Plt Count MPV Immature Gran % (Auto) Neut % (Auto) Lymph % (Auto) [place] % (Auto) Eos % (Auto) Baso % (Auto) Lymph # (Auto) [place] # (Auto) Eos # (Auto) Baso # (Auto) Abs Immat Gran (auto) Absolute Neuts (auto) Absolute Nucleated RBC Nucleated RBC % Sodium 134 L Potassium 5.3 H Chloride 101 Carbon Dioxide 26 Anion Gap 7 L BUN 28 H Creatinine 1.40 H Estim Creat Clear Calc 64 Estimated GFR 52 L Glucose 184 H POC Capillary Glucose 211 H 163 H Calcium 8.4 Total Bilirubin 0.2 AST 17 ALT 7 Alkaline Phosphatase 64 Total Protein 7.0 Albumin 3.5 03/03/20 03/03/20 03/03/20 04:50 04:50 08:27 WBC 6.2 RBC 2.67 L Hgb 8.0 L Hct 25.6 L MCV 95.9 MCH 30.0 MCHC 31.3 L RDW 13.6 Plt Count 234 MPV 10.7 H Immature Gran % (Auto) 0.3 Neut % (Auto) 72.3 Lymph % (Auto) 16.1 L [place] % (Auto) 9.3 H Eos % (Auto) 1.8 Baso % (Auto) 0.2 Lymph # (Auto) 1.00 [place] # (Auto) 0.6 Eos # (Auto) 0.1 Baso # (Auto) 0.0 Abs Immat Gran (auto) 0.02 Absolute Neuts (auto) 4.5 Absolute Nucleated RBC 0.0 Nucleated RBC % 0.0 Sodium 135 L Potassium 4.9 Chloride 100 Carbon Dioxide 27 Anion Gap 8 BUN 31 H Creatinine 1.70 H Estim Creat Clear Calc 53 Estimated GFR 42 L Glucose 154 H POC Capillary Glucose 171 H Calcium 8.4 Total Bilirubin AST ALT Alkaline Phosphatase Total Protein Albumin Post-procedural complaints: none Patient Feedback: Patient satisfied with anesthetic care.
--- NOTE | 2020-03-03 10:43 | PM.IMPN ---
Progress Note: A&P Assessment and Plan (1) S/P BKA (below knee amputation): Qualifiers: Laterality: right Qualified Code(s): Z89.511 - Acquired absence of right leg below knee Code(s): Z89.519 - Acquired absence of unspecified leg below knee Status: Acute Assessment and Plan: POD1 per Dr. Guevara. Patient complaining of pain today. Post op care, pain management, PT/OT, DVT ppx per primary service Monitor for improvement (2) Acute renal failure: Qualifiers: Acute renal failure type: unspecified Qualified Code(s): N17.9 - Acute kidney failure, unspecified Code(s): N17.9 - Acute kidney failure, unspecified Status: Acute Assessment and Plan: Cr up to 1.70 Encouraged PO intake today Monitor Cr tomorrow; check ur eosinophils as well, although does not appear to have eosinophilia Avoid nephrotoxic agents; renally dose when applicable Will hold home Lasix and metformin for now (3) HTN (hypertension), benign: Code(s): I10 - Essential (primary) hypertension Status: Acute Assessment and Plan: BP has improved but a bit soft still. Lasix held this morning given worsening kidney function Continue diltiazem Continue to hold lasix Monitor closely (4) Hyperlipidemia: Code(s): E78.5 - Hyperlipidemia, unspecified Status: Chronic Assessment and Plan: Continue Lipitor (5) Anemia: Code(s): D64.9 - Anemia, unspecified Status: Acute Assessment and Plan: H&H appears stable compared to labs earlier this month; likely component of blood loss from surgery as well. No signs of active bleeding at this time Monitor H&H Transfuse as needed (6) Sleep apnea, unspecified: Qualifiers: Sleep apnea type: obstructive Qualified Code(s): G47.33 - Obstructive sleep apnea (adult) (pediatric) Code(s): G47.30 - Sleep apnea, unspecified Status: Acute Assessment and Plan: CPAP if applicable (7) Diabetes mellitus with complication: Code(s): E11.8 - Type 2 diabetes mellitus with unspecified complications Status: Acute Assessment and Plan: BGL reasonable at 171 this morning. His long-acting is on hold at this time. His Ozempic may be non formulary. Continue to hold long acting, Ozempic and hold metformin given renal function Accuchecks ACHS, hypoglycemia protocol, correctional insulin, diabetic diet Additional Plan Thank you for allowing the Hospitalist team to care for this patient during their stay. We will continue to follow with you. Please call with any questions Subjective Date/time seen: 03/03/20 10:43 This is a Hospitalist Consult Progress Note Interval history: Patient is a 59 yo M with history of DMII, Charcot foot due to DM, MARIANO, and recent treatment of osteomyelitis of right foot who is here for planed right BKA POD1 per Dr. Guevara; hospitalist service has been consulted for management of comorbid conditions. Patient's main complaint is right lower extremity pain. No other complaints. Denies f/c/s, headaches, dizziness, lightheadedness, changes in v/h, cp/palpitations, sob/cough, n/v/d/c, abd pain, changes in BMs, dysuria, hematuria, cloudy urine, left calf pain/swelling. Review of Systems Review of Systems: All systems reviewed & are unremarkable except as noted in HPI and below Exam Narrative: Exam Narrative: General: Patient resting supine in bed appears to be in mild discomfort. Complaining of right leg pain often HEENT: Normocephalic, EOMI, oral mucosa moist. Cardiovascular: Rate and rhythm are regular. No notable murmur, rub, or gallop. Respiratory: Lungs clear to auscultation all aldrich.
[2020-03-03 11:53] LABS: Glucose Point of Care 166 (65-105)
[2020-03-03] MEDS: MORPHINE SULFATE 4 MG/ML INJ 3 MG IV PUSH (12:46)
--- NOTE | 2020-03-03 13:54 | PCPTNOTE ---
Nereyda Dennis, PT completed an inpatient rehab wheelchair evaluation on Neil Haines on 03/03/2020. The patient is unable to safely and independently ambulate household distances due to their current impairments. Their diagnosis is Rt Osteomyelitis/ Diabetic Foot Ulcer, R trans tibial amputation and their impairments include decreased strength, decreased endurance, decreased range of motion, decreased balance, lower extremity weakness. Neil Haines's weight bearing status is non weight-bearing on the righth lower leg. The patient demonstrates significant functional mobility limitations that impair their ability to participate in mobility-related activities of daily living (MRADLs), including toileting, feeding, dressing, grooming, and bathing in the customary locations in the home. These limitations cannot be sufficiently resolved by the use of an appropriately fitted cane or walker. It is recommended that the patient utilize a wheelchair for functional mobility within the home in order to facilitate optimal safety, independence and participation in all MRADL's and adequately access their home environment on a regular basis. The patient's home provides adequate access between rooms, maneuvering space, and surfaces to accommodate the recommended wheelchair. The use of a wheelchair for functional mobility is strongly recommended and the patient is receptive to using the wheelchair. The use of this wheelchair will significantly improve the patient's ability to participate in MRADLS and the patient will use it on a regular basis in the home. This will facilitate optimal safety, independence, and participation. The patient has demonstrated sufficient physical and mental capabilities needed to safely propel a manual wheelchair that is provided in the home during a typical day. Recommended Wheelchair Frame: 22 x 18 Recommended Wheelchair Size: heavy duty Recommended Wheelchair Cushion:standard cushion Wheelchair Leg Recommendations: elevating detachable - A heavy duty wheelchair is recommended because the patient weighs more than 250 pounds. - Elevating legrests are recommended because the patient has a musculoskeletal condition or the presence of a cast or brace which prevents 90 degree flexion at the knee. Elevating legrests are recommended because the patient has significant edema of the lower extremities that requires an elevating legrest. Anti-tippers are recommended due to patient demonstrating increased risk for falls. They would benefit from anti-tippers with added safety and stabilization. _Nereyda Dennis PT 8/28/20 Evaluating Therapist Date I agree with and certify that the above recommendation is medically necessary. Referring Physician Date I agree with and certify that the above recommendation is medically necessary. Referring Physician Date
--- NOTE | 2020-03-03 14:23 | ADMGEN ---
This patient, Neil Haines, was admitted to 3 Med Surg Room 301-01. Patient/family oriented to hospital policies and general routines including ID bracelet, bed and alarms, visiting hours, pain management, procedures, bathroom and other care routines, personal items, smoking policy, room service/diet, and visiting hours. Valuables list has been completed. Information on how to activate the Rapid Response Team has been discussed. Patient/Family are encouraged to report perceived risks to care and to ask questions if they do not understand what they are told or what they should do.
[2020-03-03] MEDS: PANTOPRAZOLE 40 MG TABLET PO (16:09)
[2020-03-03] MEDS: DOCUSATE SODIUM 100 MG CAPSULE PO (16:10)
[2020-03-03 17:36] LABS: Glucose Point of Care 154 (65-105)
[2020-03-03] MEDS: traZODone HCL 50 MG TABLET 150 MG PO (20:58)
[2020-03-04] VITALS (7 sets, daily range): BP systolic 124–140; BP diastolic 56–71; PULSE 84–111; RESP 18–20; TEMP 36.6–37.4; O2SAT 90–96
[2020-03-04 03:39] LABS: Glucose Point of Care 173 (65-105)
[2020-03-04] MEDS: diazePAM 5 MG TABLET PO ×3 (03:56→21:12)
[2020-03-04] MEDS: metroNIDAZOLE 250 MG TABLET 500 MG PO ×3 (06:04→21:12)
[2020-03-04 06:49] LABS: Basophils Percent Auto 0.4 % (0.2-1.2); Eosinophils Absolute Auto 0.2 K/mm3 (0-0.3); Eosinophils Percent Auto 2.7 % (0-4.4); Hematocrit 24.8 % (42.0-52.0); Hemoglobin 7.7 g/dL (14.0-18.0); Immature Granulocyte Absolute 0.03 K/mm3 (0.00-0.031); Immature Granulocyte Percent A 0.5 % (0-0.5); Lymphocytes Absolute Auto 0.51 K/mm3 (0.9-3.2); Lymphocytes Percent Auto 9.3 % (18.3-44.2); Mean Corpuscular Hemoglobin 29.1 pg (26-34); Mean Corpuscular Volume 93.6 fl (80-100); Mean Platelet Volume 11.1 fl (7.4-10.4); Monocytes Absolute Auto 0.5 K/mm3 (0.1-0.6); Monocytes Percent Auto 9.3 % (2.6-8.5); Neutrophils Absolute Auto 4.3 K/mm3 (1.3-6.7); Neutrophils Percent Auto 77.8 % (45.5-73.1); Platelet Count Result 257 k/mm3 (150-375); Red Blood Count 2.65 M/mm3 (4.6-6.20); Red Cell Distribution Width 13.8 % (11.5-14.5); White Blood Count 5.5 K/mm3 (4.5-10.0)
[2020-03-04 07:00] LABS: Potassium 5.6 mmol/L (3.4-5.0)
[2020-03-04 07:02] LABS: Anion Gap 6 mmol/L (8-16); Blood Urea Nitrogen 28 mg/dL (9-20); Calcium 8.2 mg/dL (8.4-10.2); Carbon Dioxide 26 mmol/L (22-30); Chloride 101 mmol/L (98-107); Estimated CRCL calculation 87 ml/min; Estimated Glomerular Filt Rate > 60; Glucose 178 mg/dL (75-110); Magnesium 1.7 mg/dL (1.6-2.3); Sodium 133 mmol/L (137-145)
--- NOTE | 2020-03-04 08:52 | PM.PNORT ---
Progress Note: A&P Assessment and Plan (1) S/P BKA (below knee amputation): Qualifiers: Laterality: right Qualified Code(s): Z89.511 - Acquired absence of right leg below knee Code(s): Z89.519 - Acquired absence of unspecified leg below knee Status: Acute Assessment and Plan: postoperative day 2 right below-knee amputation with cast. Patient transferred to surgical floor yesterday as blood pressure improved. Still with complaints of pain posterior right calf although appears comfortable in bed. Does not appear in any extremis or discomfort. Able to converse normally and answer questions. Discussed the surgery and postoperative course in detail. Discussed some pain expected and educated on a version type treatment. Discontinue TIPPLE ENGINEER today. Switched to oral medication with IV morphine for breakthrough. Still unable to use anti-inflammatories secondary to renal function. Continue PT /OT. Undetermined whether patient will be able to manage home independently or require rehab. Continue to assess. Subjective Subjective Date/Time Seen: 03/04/20 08:52 Patient awake and alert. Intermittent right calf pain. At times does okay. Other times has increased pain. A little bit better than yesterday overall per patient. Exam Const: General: healthy appearing; No in distress or confusion Orientation/consciousness: patient oriented x3 and No confusion HENMT: Head: normal to inspection, normocephalic and atraumatic Eyes: Conjunctivae: conjunctivae normal Sclera: sclerae normal Resp: Effort & Inspection: normal respiratory effort and no audible wheezes Cardio: Jugular venous distension: no JVD Rate: regular rate Rhythm: regular rhythm Neuro: General: patient oriented x3 and No confusion Extrem: Left lower extremity: normal to inspection and foot Details: normal capillary refill, abnormal ROM of toe Details: no pain with active ROM and no pain with passive ROM, vascular exam Details: dorsalis pedis pulse present and normal capillary refill, motor-sensory exam light-touch abnormal in all toes and other ( Negative Homans sign) Other: Cast removed yesterday. Stump protector in place. No drainage. Clean and dry. Patient able to actively lift leg Psych: Affect: normal affect Objective Data Vital Signs Vital Signs: Vital Signs - 24 hr 03/03/20 10:00 03/03/20 12:00 03/03/20 14:00 Temperature 97.7 F 97.4 F L Pulse Rate 107 H 106 H 107 H Respiratory Rate 20 18 Blood Pressure 121/70 127/75 Pulse Oximetry 96 92 03/03/20 18:00 03/03/20 20:00 03/03/20 23:56 Temperature 97.4 F L 97.7 F 98.4 F Pulse Rate 107 H 113 H 117 H Respiratory Rate 18 20 20 Blood Pressure 122/70 156/88 H 135/62 Pulse Oximetry 93 92 91 03/04/20 04:00 Temperature 98.0 F Pulse Rate 111 H Respiratory Rate 20 Blood Pressure 124/56 L Pulse Oximetry 90 Intake/Output Intake/Output: Intake & Output 03/01/20 03/02/20 03/03/20 03/04/20 23:59 23:59 23:59 23:59 Intake Total 990 3070 300 Output Total 500 1275 Balance 990 0832 -843 Meds/Results Medications: Active Medications Generic Name Dose Route Start Last Admin Trade Name Freq PRN Reason Stop Dose Admin Acetaminophen 650 mg 03/02/20 10:28 Tylenol Tablet PO Q6H PRN Pain Rated 1-3 Hydrocodone Bitart/Acetaminophen 1 tab 03/04/20 08:51 [place] 10-325 Mg PO Q4H PRN Pain Rated 4-6 Albuterol 2 puff 03/02/20 10:35 Proventil Hfa INHALATION Q6H PRN shortness of breath or wheezin Atorvastatin Calcium 20 mg 03/03/20 09:00 03/03/20 09:03 Lipitor PO 20 mg DAILY [place] Administration Dextrose 12.5 gm 03/02/20 13:20 Dextrose 50% Syringe IV PUSH PRN PRN Hypoglycemia Protocol Diazepam 5 mg 03/02/20 10:28 03/04/20 03:56 Valium Po PO 5 mg Q8H PRN Administration Muscle Spasm Diltiazem HCl 120 mg 03/03/20 09:00 03/03/20 09:04 Cardizem Cd PO 120 mg DAILY
[2020-03-04] MEDS: ENOXAPARIN 30 MG/0.3 ML SYRINGE SUB-Q (09:11)
[2020-03-04] MEDS: DOCUSATE SODIUM 100 MG CAPSULE PO ×2 (09:12→17:22)
[2020-03-04] MEDS: FUROSEMIDE 40 MG TABLET PO (09:12)
[2020-03-04] MEDS: FAMOTIDINE 20 MG TABLET PO ×2 (09:12→21:12)
[2020-03-04] MEDS: PANTOPRAZOLE 40 MG TABLET PO (09:12)
[2020-03-04] MEDS: ATORVASTATIN 20 MG TABLET PO (09:13)
[2020-03-04] MEDS: GABAPENTIN 100 MG CAPSULE PO ×3 (09:13→17:23)
[2020-03-04 12:15] LABS: Glucose Point of Care 152 (65-105)
[2020-03-04 16:12] LABS: Anion Gap 4 mmol/L (8-16); Blood Urea Nitrogen 24 mg/dL (9-20); Calcium 8.5 mg/dL (8.4-10.2); Carbon Dioxide 28 mmol/L (22-30); Chloride 101 mmol/L (98-107); Estimated CRCL calculation 95 ml/min; Estimated Glomerular Filt Rate > 60; Glucose 170 mg/dL (75-110); Potassium 5.9 mmol/L (3.4-5.0); Sodium 133 mmol/L (137-145)
--- NOTE | 2020-03-04 16:34 | PM.IMPN ---
Progress Note: A&P Assessment and Plan (1) S/P BKA (below knee amputation): Qualifiers: Laterality: right Qualified Code(s): Z89.511 - Acquired absence of right leg below knee Code(s): Z89.519 - Acquired absence of unspecified leg below knee Status: Acute Assessment and Plan: POD2 per Dr. Guevara. Patient states leg is sore today. Family noting he was sleeping all day today; presumably due to pain medications Post op care, pain management, PT/OT, DVT ppx per primary service Monitor for improvement CC working on placement (2) Acute renal failure: Qualifiers: Acute renal failure type: unspecified Qualified Code(s): N17.9 - Acute kidney failure, unspecified Code(s): N17.9 - Acute kidney failure, unspecified Status: Acute Assessment and Plan: Cr down to 1.00 this afternoon; appears to have resolved Encouraged PO intake Monitor BMP Avoid nephrotoxic agents; renally dose when applicable Will hold home metformin for now; resumed lasix this morning (3) HTN (hypertension), benign: Code(s): I10 - Essential (primary) hypertension Status: Acute Assessment and Plan: BP has improved; 130s sys today Continue diltiazem Resumed lasix today Monitor closely (4) Hyperlipidemia: Code(s): E78.5 - Hyperlipidemia, unspecified Status: Chronic Assessment and Plan: Continue Lipitor (5) Anemia: Code(s): D64.9 - Anemia, unspecified Status: Acute Assessment and Plan: H&H appears to drift down some, but compared to labs earlier this month; likely component of blood loss from surgery as well. No signs of active bleeding at this time Monitor H&H Transfuse as needed (6) Sleep apnea, unspecified: Qualifiers: Sleep apnea type: obstructive Qualified Code(s): G47.33 - Obstructive sleep apnea (adult) (pediatric) Code(s): G47.30 - Sleep apnea, unspecified Status: Acute Assessment and Plan: CPAP if applicable (7) Diabetes mellitus with complication: Code(s): E11.8 - Type 2 diabetes mellitus with unspecified complications Status: Acute Assessment and Plan: BGL 100s today. His long-acting is on hold at this time. His Ozempic may be non formulary. Continue to hold long acting, Ozempic and hold metformin given renal function Accuchecks ACHS, hypoglycemia protocol, correctional insulin, diabetic diet (8) Acute hyperkalemia: Code(s): E87.5 - Hyperkalemia Status: Acute Assessment and Plan: Appears to have had this problem in the past presumably due to poor renal excretion. He also was receiving KCl in IVF during stay which was d/c this morning. No CP/palpitations Will do kayexalate this afternoon' Lasix was resumed today Monitor BMP in morning Additional Plan Thank you for allowing the Hospitalist team to care for this patient during their stay. We will continue to follow with you. Please call with any questions Subjective Date/time seen: 03/04/20 16:34 This is a Hospitalist Consult Progress Note Interval history: Patient is a 59 yo M with history of DMII, Charcot foot due to DM, MARIANO, and recent treatment of osteomyelitis of right foot who is here for planed right BKA POD2 per Dr. Grebing; hospitalist service has been consulted for management of comorbid conditions. Patient's main complaint is right lower extremity soreness. Although it should be noted patient comfortably sleeping at time of visit; arousable, but lethargic and falls back asleep easily. Family in room stating he has been sleeping all day today. No other complaints. Denies f/c/s, cp/palpitatio
[2020-03-04] MEDS: SODIUM POLYSTYRENE SULFONONATE 15 GM/60 ML BTL PO (17:22)
[2020-03-04 17:51] LABS: Glucose Point of Care 150 (65-105)
[2020-03-04] MEDS: ONDANSETRON INJ 4 MG/2 ML VIAL IV PUSH (18:27)
[2020-03-04] MEDS: traZODone HCL 50 MG TABLET 150 MG PO (21:12)
[2020-03-04 21:50] LABS: Glucose Point of Care 171 (65-105)
[2020-03-05] VITALS (9 sets, daily range): BP systolic 103–134; BP diastolic 59–74; PULSE 106–123; RESP 11–20; TEMP 36.2–37.1; O2SAT 85–98
[2020-03-05] MEDS: metroNIDAZOLE 250 MG TABLET 500 MG PO ×3 (04:53→21:06)
--- NOTE | 2020-03-05 05:09 | PC.NURSE ---
When transferring the patient back to the bed from using the bathroom, with 2 assist and the sarasteady, the patient went to sit down from the sarasteady to the bed and a crack was heard from the brace on his leg. A screw fell out and a crack was observed in the back of the brace upon examination. Will notify dayshift RN to tell the surgeon this AM.
[2020-03-05 07:11] LABS: Hematocrit 26.3 % (42.0-52.0); Hemoglobin 8.4 g/dL (14.0-18.0); Mean Corpuscular HGB Conc 31.9 g/dl (32-36); Mean Corpuscular Hemoglobin 29.5 pg (26-34); Mean Corpuscular Volume 92.3 fl (80-100); Mean Platelet Volume 11.2 fl (7.4-10.4); Platelet Count Result 269 k/mm3 (150-375); Red Blood Count 2.85 M/mm3 (4.6-6.20); Red Cell Distribution Width 13.3 % (11.5-14.5); White Blood Count 6.3 K/mm3 (4.5-10.0)
[2020-03-05 07:35] LABS: Anion Gap 6 mmol/L (8-16); Blood Urea Nitrogen 25 mg/dL (9-20); Calcium 8.5 mg/dL (8.4-10.2); Carbon Dioxide 28 mmol/L (22-30); Chloride 101 mmol/L (98-107); Estimated CRCL calculation 84 ml/min; Estimated Glomerular Filt Rate > 60; Glucose 184 mg/dL (75-110); Magnesium 1.5 mg/dL (1.6-2.3); Potassium 5.4 mmol/L (3.4-5.0); Sodium 135 mmol/L (137-145)
[2020-03-05 08:00] LABS: Glucose Point of Care 163 (65-105)
[2020-03-05] MEDS: DOCUSATE SODIUM 100 MG CAPSULE PO ×2 (08:22→17:17)
[2020-03-05] MEDS: FAMOTIDINE 20 MG TABLET PO ×2 (08:23→21:06)
[2020-03-05] MEDS: PANTOPRAZOLE 40 MG TABLET PO (08:23)
[2020-03-05] MEDS: ENOXAPARIN 30 MG/0.3 ML SYRINGE SUB-Q (08:23)
[2020-03-05] MEDS: FUROSEMIDE 40 MG TABLET PO (08:23)
[2020-03-05] MEDS: GABAPENTIN 100 MG CAPSULE PO ×3 (08:24→17:17)
[2020-03-05] MEDS: ATORVASTATIN 20 MG TABLET PO (08:25)
--- NOTE | 2020-03-05 10:27 | PM.PNORT ---
Progress Note: A&P Assessment and Plan (1) S/P BKA (below knee amputation): Qualifiers: Laterality: right Qualified Code(s): Z89.511 - Acquired absence of right leg below knee Code(s): Z89.519 - Acquired absence of unspecified leg below knee Status: Acute Assessment and Plan: postoperative day 3 right below-knee amputation. Blood pressure and labs improved. Still with complaints of pain posterior right calf although appears comfortable in bed. Does not appear in any extremis or discomfort. Switched to oral medication with IV morphine for breakthrough. Pain better today. Still unable to use anti-inflammatories secondary to renal function. Continue PT /OT. Requiring assistive to for transfers. Not currently independent. We will re-evaluate tomorrow with likelihood of needing rehab/tertiary care Subjective Subjective Date/Time Seen: 03/05/20 10:27 Patient awake and alert. Pain slightly better. Concern about moving leg as the stump protector broke yesterday and is not currently. Exam Const: General: healthy appearing; No in distress or confusion Orientation/consciousness: patient oriented x3 and No confusion HENMT: Head: normal to inspection, normocephalic and atraumatic Eyes: Conjunctivae: conjunctivae normal Sclera: sclerae normal Resp: Effort & Inspection: normal respiratory effort and no audible wheezes Cardio: Jugular venous distension: no JVD Rate: regular rate Rhythm: regular rhythm Neuro: General: patient oriented x3 and No confusion Extrem: Left lower extremity: normal to inspection and foot Details: normal capillary refill, abnormal ROM of toe Details: no pain with active ROM and no pain with passive ROM, vascular exam Details: dorsalis pedis pulse present and normal capillary refill, motor-sensory exam light-touch abnormal in all toes and other ( Negative Homans sign) Other: Stump protector with plastic posterior support failure. Right leg examined. Skin clean and dry with no erythema. Incision has no drainage. Muscle compartments are soft. Knee joint nontender. Psych: Affect: normal affect Objective Data Vital Signs Vital Signs: Vital Signs - 24 hr 03/04/20 14:00 03/04/20 19:45 03/04/20 22:00 Temperature 99.3 F 98.8 F Pulse Rate 105 H 84 Respiratory Rate 18 20 Blood Pressure 134/68 140/63 Pulse Oximetry 96 94 90 03/05/20 06:00 03/05/20 06:22 03/05/20 08:00 Temperature 98.8 F Pulse Rate 123 H 118 H 118 H Respiratory Rate 18 20 20 Blood Pressure 103/59 L Pulse Oximetry 96 93 93 Intake/Output Intake/Output: Intake & Output 03/02/20 03/03/20 03/04/20 03/05/20 23:59 23:59 23:59 23:59 Intake Total 990 3070 890 620 Output Total 500 2800 750 Balance 990 2948 -8450 -462 Meds/Results Medications: Active Medications Generic Name Dose Route Start Last Admin Trade Name Freq PRN Reason Stop Dose Admin Acetaminophen 650 mg 03/02/20 10:28 Tylenol Tablet PO Q6H PRN Pain Rated 1-3 Hydrocodone Bitart/Acetaminophen 1 tab 03/04/20 08:51 03/05/20 04:52 [place] 10-325 Mg PO 1 tab Q4H PRN Administration Pain Rated 4-6 Albuterol 2 puff 03/02/20 10:35 Proventil Hfa INHALATION Q6H PRN shortness of breath or wheezin Atorvastatin Calcium 20 mg 03/03/20 09:00 03/05/20 08:25 Lipitor PO 20 mg DAILY [place] Administration Dextrose 12.5 gm 03/02/20 13:20 Dextrose 50% Syringe IV PUSH PRN PRN Hypoglycemia Protocol Diazepam 5 mg 03/02/20 10:28 03/04/20 21:12 Valium Po PO 5 mg Q8H PRN Administration Muscle Spasm Diltiazem HCl 120 mg 03/03/20 09:00 03/05/20 08:23 Cardizem Cd PO 120 mg DAILY [place] Administration Docusate Sodium 100 mg 03/02/20 17:00 03/05/20 08:22 Colace Capsule PO 100 mg BID [place] Administration Enoxaparin Sodium 30 mg 03/03/20 09:00 03/05/20 08:23 Lovenox SUB-Q 30 mg DAILY [place] Administration Famotidine 20 mg
[2020-03-05 11:53] LABS: Glucose Point of Care 156 (65-105)
--- NOTE | 2020-03-05 13:28 | PM.IMPN ---
Progress Note: A&P Assessment and Plan (1) S/P BKA (below knee amputation): Qualifiers: Laterality: right Qualified Code(s): Z89.511 - Acquired absence of right leg below knee Code(s): Z89.519 - Acquired absence of unspecified leg below knee Status: Acute Assessment and Plan: POD3 per Dr. Guevara. Patient states still has right leg pain. Post op care, pain management, PT/OT, DVT ppx per primary service Monitor for improvement CC working on placement (2) Acute renal failure: Qualifiers: Acute renal failure type: unspecified Qualified Code(s): N17.9 - Acute kidney failure, unspecified Code(s): N17.9 - Acute kidney failure, unspecified Status: Acute Assessment and Plan: Cr down to 1.10 this afternoon; appears to have resolved Encouraged PO intake Monitor BMP Avoid nephrotoxic agents; renally dose when applicable Will hold home metformin for now Monitor with lasix resumed yesterday (3) HTN (hypertension), benign: Code(s): I10 - Essential (primary) hypertension Status: Acute Assessment and Plan: BP 100s sys this morning, but otherwise has improved Continue diltiazem, lasix Monitor closely (4) Hyperlipidemia: Code(s): E78.5 - Hyperlipidemia, unspecified Status: Chronic Assessment and Plan: Continue Lipitor (5) Anemia: Code(s): D64.9 - Anemia, unspecified Status: Acute Assessment and Plan: Hgb 8.4 today; stable; likely component of blood loss from surgery as well. No signs of active bleeding at this time Monitor H&H Transfuse as needed (6) Sleep apnea, unspecified: Qualifiers: Sleep apnea type: obstructive Qualified Code(s): G47.33 - Obstructive sleep apnea (adult) (pediatric) Code(s): G47.30 - Sleep apnea, unspecified Status: Acute Assessment and Plan: CPAP if applicable (7) Diabetes mellitus with complication: Code(s): E11.8 - Type 2 diabetes mellitus with unspecified complications Status: Acute Assessment and Plan: BGL 100s today. His long-acting is on hold at this time. His Ozempic may be non formulary. Continue to hold long acting, Ozempic and hold metformin given renal function Accuchecks ACHS, hypoglycemia protocol, correctional insulin, diabetic diet (8) Acute hyperkalemia: Code(s): E87.5 - Hyperkalemia Status: Acute Assessment and Plan: K down to 5.4 today. Appears to have had this problem in the past presumably due to poor renal excretion. He also was receiving KCl in IVF during stay which was d/c this morning. No CP/palpitations. Kayexalate yesterday with BM today Lasix continues Monitor BMP in morning consider NS IVF tomorrow if not trending down more Additional Plan Thank you for allowing the Hospitalist team to care for this patient during their stay. We will continue to follow with you. Please call with any questions Subjective Date/time seen: 03/05/20 13:28 This is a Hospitalist Consult Progress Note Interval history: Patient is a 59 yo M with history of DMII, Charcot foot due to DM, MARIANO, and recent treatment of osteomyelitis of right foot who is here for planed right BKA POD3 per Dr. Guevara; hospitalist service has been consulted for management of comorbid conditions. Patient's main complaint is right lower extremity pain today, states its about the same as other days, but appears comfortable. No other complaints. BM today. Denies f/c/s, cp/palpitations, sob/cough, n/v/d/c, abd pain, left calf pain/swelling. Review of Systems Review of Systems: All systems reviewed & are unremarkable except as
[2020-03-05 17:58] LABS: Glucose Point of Care 170 (65-105)
[2020-03-05] MEDS: traZODone HCL 50 MG TABLET 150 MG PO (21:06)
[2020-03-05 22:24] LABS: Glucose Point of Care 174 (65-105)
[2020-03-06 02:28] VITALS: O2SAT 94
[2020-03-06] MEDS: metroNIDAZOLE 250 MG TABLET 500 MG PO ×3 (05:20→20:16)
[2020-03-06 06:00] VITALS: BP 119/69; PULSE 100; RESP 18; TEMP 36.2; O2SAT 100
[2020-03-06 06:39] LABS: Hemoglobin 8.6 g/dL (14.0-18.0); Mean Corpuscular HGB Conc 31.9 g/dl (32-36); Mean Corpuscular Hemoglobin 29.7 pg (26-34); Mean Corpuscular Volume 93.1 fl (80-100); Mean Platelet Volume 10.9 fl (7.4-10.4); Platelet Count Result 254 k/mm3 (150-375); Red Cell Distribution Width 13.5 % (11.5-14.5); White Blood Count 6.3 K/mm3 (4.5-10.0)
[2020-03-06 06:57] LABS: Anion Gap 6 mmol/L (8-16); Blood Urea Nitrogen 24 mg/dL (9-20); Calcium 8.9 mg/dL (8.4-10.2); Carbon Dioxide 30 mmol/L (22-30); Chloride 100 mmol/L (98-107); Estimated CRCL calculation 92 ml/min; Estimated Glomerular Filt Rate > 60; Glucose 204 mg/dL (75-110); Magnesium 1.5 mg/dL (1.6-2.3); Potassium 4.7 mmol/L (3.4-5.0); Sodium 136 mmol/L (137-145)
[2020-03-06 08:45] LABS: Glucose Point of Care 222 (65-105)
[2020-03-06] MEDS: INSULIN ASPART (*BKC) 100 UNITS/ML SUB-Q (08:48)
--- NOTE | 2020-03-06 08:53 | PM.PNORT ---
Progress Note: A&P Assessment and Plan (1) S/P BKA (below knee amputation): Qualifiers: Laterality: right Qualified Code(s): Z89.511 - Acquired absence of right leg below knee Code(s): Z89.519 - Acquired absence of unspecified leg below knee Status: Acute Assessment and Plan: POD #4: Right BKA. Continued complaints of right posterior/lateral calf pain, mild improvement. Comfortable up in chair working with OT at time of exam. Continue pain control with oral medication- IV for breakthrough only. Continue PT /OT. Requiring assistance with transfers, stanby this AM. Not fully independent. Would likely benefit from TRC for mobilization. Awaiting consult at this time. No pillows under right knee. New stump protector to be obtained from [facility] as current one broke. Dispo: TRC when medically cleared. Subjective Subjective Date/Time Seen: 03/06/20 08:53 Patient awake and alert. Sitting up in the chair performing ADLs with OT. Pain improving. Multiple questions regarding surgery, all questions answered. Awaiting stump protector to be replaced by Disposal Plant Operator. Nursing to notify. Review of Systems Review of Systems: Narrative: Complaints of lateral/posterior calf. Tender over the lateral calf. All systems reviewed & are unremarkable except as noted in HPI and below Constitutional: Constitutional: Reports as per HPI and Reports no additional constitutional complaints Eyes: Eyes: Reports as per HPI and Reports no additional eye complaints ENT: Reports system reviewed and no additional complaints, except as documented and Reports Normal hearing present Cardiovascular: Cardiovascular: Reports no additional cardiovascular complaints Respiratory: Respiratory: Reports as per HPI and Reports no additional respiratory complaints Gastrointestinal: Gastrointestinal: Reports as per HPI and Reports no additional gastrointestinal complaints Musculoskeletal: Musculoskeletal: Reports no additional musculoskeletal complaints Integumentary/Breasts: Skin/Breast: Reports system reviewed and no additional complaints, except as docu Neurologic: Reports system reviewed and no additional complaints, except as documented and Reports Normal hearing present Psychiatric: Psychiatric: Reports no additional psychiatric complaints and Reports as per HPI Endocrine: Endocrine: Reports no additional endocrine complaints Hematologic/Lymphatic: Hematologic/Lymphatic: Reports no additional hematologic/lymphatic complaints Allergic/Immunologic: Allergic/Immunologic: Reports no additional allergic/immunologic complaints Exam Const: General: healthy appearing; No in distress or confusion Orientation/consciousness: patient oriented x3 and No confusion HENMT: Head: normal to inspection, normocephalic and atraumatic Eyes: Conjunctivae: conjunctivae normal Sclera: sclerae normal Resp: Effort & Inspection: normal respiratory effort and no audible wheezes Cardio: Jugular venous distension: no JVD Rate: regular rate Rhythm: regular rhythm Neuro: General: patient oriented x3 and No confusion Extrem: Left lower extremity: normal to inspection and foot Details: normal capillary refill, abnormal ROM of toe Details: no pain with active ROM and no pain with passive ROM, vascular exam Details: dorsalis pedis pulse present and normal capillary refill, motor-sensory exam light-touch abnormal in all toes and other ( Negative Homans sign) Other: Stump protector with plastic posterior support failure, awaiting replacement from Disposal Plant Operator. Stump sleeve c/d/i. Psych: Affect: normal affect Objective Data Vital Signs Vital Signs: Vital Signs - 24 hr 03/05/20 11:01 03/05/20 14:00 03/05/20 22:00 Temperature 36.7 C 36.2 C L Pulse Rate 108 H 106 H Respiratory Rate 18 18 Blood Pressure 122/64 134/74 Pulse Oximetry 91 96 98 03/05/20 22:26 03/05/20 22:47 03/05/20 23:46 Temperature Pulse Rate 110 H Respiratory Rate 11
--- NOTE | 2020-03-06 10:14 | PM.IMPN ---
Progress Note: A&P Assessment and Plan (1) S/P BKA (below knee amputation): Qualifiers: Laterality: right Qualified Code(s): Z89.511 - Acquired absence of right leg below knee Code(s): Z89.519 - Acquired absence of unspecified leg below knee Status: Acute Assessment and Plan: POD4 per Dr. Guevara. Patient states still has right leg pain. Post op care, pain management, PT/OT, DVT ppx per primary service Monitor for improvement CC following; awaiting approval from [facility] for discharge from medical standpoint (2) Acute renal failure: Qualifiers: Acute renal failure type: unspecified Qualified Code(s): N17.9 - Acute kidney failure, unspecified Code(s): N17.9 - Acute kidney failure, unspecified Status: Acute Assessment and Plan: Cr down to 1.00 today; appears to have resolved Encouraged PO intake Monitor BMP in 1 week Resume home meds (3) HTN (hypertension), benign: Code(s): I10 - Essential (primary) hypertension Status: Acute Assessment and Plan: BP 110s sys this morning, but otherwise has improved Continue diltiazem, lasix Monitor closely (4) Hyperlipidemia: Code(s): E78.5 - Hyperlipidemia, unspecified Status: Chronic Assessment and Plan: Continue Lipitor (5) Anemia: Code(s): D64.9 - Anemia, unspecified Status: Acute Assessment and Plan: Hgb 8.6 today; stable; likely component of blood loss from surgery as well. No signs of active bleeding at this time Monitor H&H Transfuse as needed (6) Sleep apnea, unspecified: Qualifiers: Sleep apnea type: obstructive Qualified Code(s): G47.33 - Obstructive sleep apnea (adult) (pediatric) Code(s): G47.30 - Sleep apnea, unspecified Status: Acute Assessment and Plan: CPAP if applicable (7) Diabetes mellitus with complication: Code(s): E11.8 - Type 2 diabetes mellitus with unspecified complications Status: Acute Assessment and Plan: BGL 200s today. His long-acting is on hold at this time. His Ozempic may be non formulary. Resume meds at discharge Accuchecks ACHS, hypoglycemia protocol, correctional insulin, diabetic diet during stay (8) Acute hyperkalemia: Code(s): E87.5 - Hyperkalemia Status: Acute Assessment and Plan: K down to 4.7 today. Appears to have had this problem in the past presumably due to poor renal excretion. He also was receiving KCl in IVF during stay. No CP/palpitations. Improved with kayexalate Lasix continues Monitor BMP in 1 week Additional Plan Thank you for allowing the Hospitalist team to care for this patient during their stay. We will continue to follow with you. Please call with any questions Subjective Date/time seen: 03/06/20 10:14 This is a Hospitalist Consult Progress Note Interval history: Patient is a 59 yo M with history of DMII, Charcot foot due to DM, MARIANO, and recent treatment of osteomyelitis of right foot who is here for planed right BKA POD4 per Dr. Guevara; hospitalist service has been consulted for management of comorbid conditions. Patient's main complaint is right lower extremity pain today. No other complaints. Tolerating PO. Denies f/c/s, cp/palpitations, sob/cough, n/v/d/c, abd pain, left calf pain/swelling. Review of Systems Review of Systems: All systems reviewed & are unremarkable except as noted in HPI and below Exam Narrative: Exam Narrative: General: Patient sitting upright in bed. Comfortable HEENT: Normocephalic, EOMI, oral mucosa moist. Cardiovascular: Tachycardia, regular rhythm, s1 s2 noted. No notable murmur
[2020-03-06] MEDS: ATORVASTATIN 20 MG TABLET PO (10:17)
[2020-03-06] MEDS: PANTOPRAZOLE 40 MG TABLET PO (10:17)
[2020-03-06] MEDS: ENOXAPARIN 30 MG/0.3 ML SYRINGE SUB-Q (10:17)
[2020-03-06] MEDS: FAMOTIDINE 20 MG TABLET PO ×2 (10:17→20:16)
[2020-03-06] MEDS: FUROSEMIDE 40 MG TABLET PO (10:17)
[2020-03-06] MEDS: GABAPENTIN 100 MG CAPSULE PO ×3 (10:17→16:17)
[2020-03-06 10:24] VITALS: O2SAT 93
[2020-03-06 12:51] LABS: Glucose Point of Care 185 (65-105)
[2020-03-06 14:00] VITALS: BP 140/66; PULSE 102; RESP 20; TEMP 36.1; O2SAT 98
[2020-03-06] MEDS: DOCUSATE SODIUM 100 MG CAPSULE PO (16:17)
[2020-03-06] MEDS: NEOMYCIN/POLYMYXIN/BACITRACIN OINTMENT PACKET 1 PACKET (16:17)
[2020-03-06 17:57] LABS: Glucose Point of Care 147 (65-105)
[2020-03-06] MEDS: traZODone HCL 50 MG TABLET 150 MG PO (20:16)
[2020-03-06 20:34] LABS: Glucose Point of Care 158 (65-105)
[2020-03-06 22:00] VITALS: BP 123/67; PULSE 94; RESP 18; TEMP 36.5; O2SAT 95
[2020-03-07 05:49] VITALS: BP 141/65; PULSE 91; RESP 18; TEMP 36.6; O2SAT 97
[2020-03-07 06:23] LABS: Hematocrit 27.9 % (42.0-52.0); Mean Corpuscular HGB Conc 32.3 g/dl (32-36); Mean Corpuscular Hemoglobin 29.4 pg (26-34); Mean Corpuscular Volume 91.2 fl (80-100); Mean Platelet Volume 10.8 fl (7.4-10.4); Platelet Count Result 305 k/mm3 (150-375); Red Blood Count 3.06 M/mm3 (4.6-6.20); Red Cell Distribution Width 13.3 % (11.5-14.5); White Blood Count 5.3 K/mm3 (4.5-10.0)
[2020-03-07 06:41] LABS: Anion Gap 5 mmol/L (8-16); Blood Urea Nitrogen 19 mg/dL (9-20); Calcium 8.9 mg/dL (8.4-10.2); Carbon Dioxide 31 mmol/L (22-30); Chloride 100 mmol/L (98-107); Estimated CRCL calculation 93 ml/min; Estimated Glomerular Filt Rate > 60; Glucose 170 mg/dL (75-110); Magnesium 1.4 mg/dL (1.6-2.3); Potassium 4.5 mmol/L (3.4-5.0); Sodium 136 mmol/L (137-145)
[2020-03-07] MEDS: GABAPENTIN 100 MG CAPSULE PO ×2 (08:13→12:58)
[2020-03-07] MEDS: PANTOPRAZOLE 40 MG TABLET PO (08:13)
[2020-03-07] MEDS: FAMOTIDINE 20 MG TABLET PO (08:13)
[2020-03-07] MEDS: FUROSEMIDE 40 MG TABLET PO (08:13)
[2020-03-07] MEDS: ATORVASTATIN 20 MG TABLET PO (08:15)
[2020-03-07] MEDS: metroNIDAZOLE 250 MG TABLET 500 MG PO ×2 (08:15→13:00)
[2020-03-07] MEDS: ENOXAPARIN 30 MG/0.3 ML SYRINGE SUB-Q (08:16)
[2020-03-07] MEDS: DOCUSATE SODIUM 100 MG CAPSULE PO (08:18)
[2020-03-07 08:26] VITALS: O2SAT 95
[2020-03-07 08:27] LABS: Glucose Point of Care 169 (65-105)
--- NOTE | 2020-03-07 09:02 | PM.PNORT ---
Progress Note: A&P Assessment and Plan (1) S/P BKA (below knee amputation): Qualifiers: Laterality: right Qualified Code(s): Z89.511 - Acquired absence of right leg below knee Code(s): Z89.519 - Acquired absence of unspecified leg below knee Status: Acute Assessment and Plan: POD #5: Right BKA. Improvement in pain today. Mild complaints of right posterior/lateral calf pain, improvement. Comfortable up in chair working with OT at time of exam. PICC line removed yesterday, no complications. Continue pain control with oral medication- IV for breakthrough only. Continue PT /OT. Requiring assistance with transfers, guarded assist this AM. Not fully independent. No pillows under right knee. Continue stump protector. Dispo: [facility] pending available bed. Subjective Subjective Date/Time Seen: 03/07/20 09:02 Patient up working with OT. No new complaints. Pain better controlled. Tolerating diet well. Review of Systems Review of Systems: Narrative: Complaints of lateral/posterior calf. Tender over the lateral calf. All systems reviewed & are unremarkable except as noted in HPI and below Constitutional: Constitutional: Reports as per HPI and Reports no additional constitutional complaints Eyes: Eyes: Reports as per HPI and Reports no additional eye complaints ENT: Reports system reviewed and no additional complaints, except as documented and Reports Normal hearing present Cardiovascular: Cardiovascular: Reports no additional cardiovascular complaints Respiratory: Respiratory: Reports as per HPI and Reports no additional respiratory complaints Gastrointestinal: Gastrointestinal: Reports as per HPI and Reports no additional gastrointestinal complaints Musculoskeletal: Musculoskeletal: Reports no additional musculoskeletal complaints Integumentary/Breasts: Skin/Breast: Reports system reviewed and no additional complaints, except as docu Neurologic: Reports system reviewed and no additional complaints, except as documented and Reports Normal hearing present Psychiatric: Psychiatric: Reports no additional psychiatric complaints and Reports as per HPI Endocrine: Endocrine: Reports no additional endocrine complaints Hematologic/Lymphatic: Hematologic/Lymphatic: Reports no additional hematologic/lymphatic complaints Allergic/Immunologic: Allergic/Immunologic: Reports no additional allergic/immunologic complaints Exam Const: General: healthy appearing; No in distress or confusion Orientation/consciousness: patient oriented x3 and No confusion HENMT: Head: normal to inspection, normocephalic and atraumatic Eyes: Conjunctivae: conjunctivae normal Sclera: sclerae normal Resp: Effort & Inspection: normal respiratory effort and no audible wheezes Cardio: Jugular venous distension: no JVD Rate: regular rate Rhythm: regular rhythm Neuro: General: patient oriented x3 and No confusion Extrem: Left lower extremity: normal to inspection and foot Details: normal capillary refill, abnormal ROM of toe Details: no pain with active ROM and no pain with passive ROM, vascular exam Details: dorsalis pedis pulse present and normal capillary refill, motor-sensory exam light-touch abnormal in all toes and other ( Negative Homans sign) Other: New stump protector in place. Stump sleeve c/d/i. Psych: Affect: normal affect Objective Data Vital Signs Vital Signs: Vital Signs - 24 hr 03/06/20 10:24 03/06/20 14:00 03/06/20 22:00 Temperature 36.1 C L 36.5 C Pulse Rate 102 H 94 Respiratory Rate 20 18 Blood Pressure 140/66 123/67 Pulse Oximetry 93 98 95 03/07/20 05:49 03/07/20 08:26 Temperature 36.6 C Pulse Rate 91 Respiratory Rate 18 Blood Pressure 141/65 H Pulse Oximetry 97 95 Intake/Output Intake/Output: Intake & Output 03/04/20 03/05/20 03/06/20 03/07/20 23:59 23:59 23:59 23:59 Intake Total 890 1780 2000 290 Output Total 2800 1000 850 700 Balance -9512 481 9462 -410
[2020-03-07] MEDS: MAGNESIUM SULFATE 3GM/D5W100ML 3 GM/100 ML BAG IVPB (09:24)
--- NOTE | 2020-03-07 11:26 | PM.IMPN ---
Progress Note: A&P Assessment and Plan (1) S/P BKA (below knee amputation): Qualifiers: Laterality: right Qualified Code(s): Z89.511 - Acquired absence of right leg below knee Code(s): Z89.519 - Acquired absence of unspecified leg below knee Status: Acute Assessment and Plan: POD #[address] Guevara. Patient states still has right leg pain. Post op care, pain management, PT/OT, DVT ppx per primary service Monitor for improvement CC following; awaiting approval from [facility] for discharge from medical standpoint (2) Acute renal failure: Qualifiers: Acute renal failure type: unspecified Qualified Code(s): N17.9 - Acute kidney failure, unspecified Code(s): N17.9 - Acute kidney failure, unspecified Status: Acute Assessment and Plan: Cr down to 1.00 today; appears to have resolved Encouraged PO intake Monitor BMP in 1 week Resume home meds (3) HTN (hypertension), benign: Code(s): I10 - Essential (primary) hypertension Status: Acute Assessment and Plan: BP 140s sys this morning, but otherwise has improved Continue diltiazem, lasix Monitor closely (4) Hyperlipidemia: Code(s): E78.5 - Hyperlipidemia, unspecified Status: Chronic Assessment and Plan: Continue Lipitor (5) Anemia: Code(s): D64.9 - Anemia, unspecified Status: Acute Assessment and Plan: Hgb 9.0 today; stable; likely component of blood loss from surgery as well. No signs of active bleeding at this time Monitor H&H Transfuse as needed (6) Sleep apnea, unspecified: Qualifiers: Sleep apnea type: obstructive Qualified Code(s): G47.33 - Obstructive sleep apnea (adult) (pediatric) Code(s): G47.30 - Sleep apnea, unspecified Status: Acute Assessment and Plan: CPAP if applicable (7) Diabetes mellitus with complication: Code(s): E11.8 - Type 2 diabetes mellitus with unspecified complications Status: Acute Assessment and Plan: BGL 170s today. His long-acting is on hold at this time. His Ozempic may be non formulary. Resume meds at discharge Accuchecks ACHS, hypoglycemia protocol, correctional insulin, diabetic diet during stay (8) Acute hyperkalemia: Code(s): E87.5 - Hyperkalemia Status: Acute Assessment and Plan: K down to 4.7 today. Appears to have had this problem in the past presumably due to poor renal excretion. He also was receiving KCl in IVF during stay. No CP/palpitations. Improved with kayexalate Lasix continues Monitor BMP in 1 week (9) Hypomagnesemia: Code(s): E83.42 - Hypomagnesemia Status: Acute Assessment and Plan: MAGNESIUM WAS LOW AT 1.4. I attempted to give IV magnesium but the nurse loss IV access and they tried sticking him about 3 times without any success. I will give him oral magnesium recheck his magnesium level in the morning and if it is still other times it will need to replenish down [facility]. Will recheck magnesium in the morning. Time Spent With Patient Time with patient: 25 - 35 minutes Subjective Date/time seen: 03/07/20 11:26 Interval history: Patient is a 59 yo M with history of DMII, Charcot foot due to DM, MARIANO, and recent treatment of osteomyelitis of right foot who is here for planned right BKA POD #[address] Guevara; hospitalist service has been consulted for management of comorbid conditions. He states this morning he had some trouble taking a deep breath but he used his inhaler which is p.r.n. with improvement of symptoms. He denies any chest pain, shortness
[2020-03-07] MEDS: MAGNESIUM OXIDE 400 MG TABLET 800 MG PO (12:04)
[2020-03-07 14:00] VITALS: BP 138/73; PULSE 93; RESP 18; TEMP 37.4; O2SAT 95
--- NOTE | 2020-03-07 14:44 | PM.DS ---
DS: Admitting Diagnosis Admitting Diagnosis Admitting Diagnosis: Rt Osteomyelitis/ Diabetic Foot Ulcer DS: Discharge Diagnosis Discharge Diagnosis (1) S/P BKA (below knee amputation): Qualifiers: Laterality: right Qualified Code(s): Z89.511 - Acquired absence of right leg below knee Code(s): Z89.519 - Acquired absence of unspecified leg below knee Status: Acute Assessment and Plan: Stable status post surgery, 5 days. Patient unable to transfer and ambulate independently. Plan for inpatient rehab for strengthening and to assist with independence. (2) Osteomyelitis: Qualifiers: Osteomyelitis type: acute hematogenous Osteomyelitis location: foot Laterality: right Qualified Code(s): M86.071 - Acute hematogenous osteomyelitis, right ankle and foot Code(s): M86.9 - Osteomyelitis, unspecified Status: Acute (3) Diabetic foot ulcer associated with diabetes mellitus due to underlying condition: Qualifiers: Diabetic foot ulcer location: midfoot Laterality: right Non-pressure ulcer stage: with muscle involvement without evidence of necrosis Qualified Code(s): E08.621 - Diabetes mellitus due to underlying condition with foot ulcer; L97.415 - Non-pressure chronic ulcer of right heel and midfoot with muscle involvement without evidence of necrosis Code(s): E08.621 - Diabetes mellitus due to underlying condition with foot ulcer; L97.509 - Non-pressure chronic ulcer of other part of unspecified foot with unspecified severity Status: Acute (4) Diabetes: Qualifiers: Diabetes mellitus type: type 2 Diabetes mellitus termite helper insulin use: with termite helper use Diabetes mellitus complication status: with neurologic complications Diabetes mellitus complication detail: with other neurological complication Qualified Code(s): E11.49 - Type 2 diabetes mellitus with other diabetic neurological complication; Z79.4 - longterm (current) use of insulin Code(s): E11.9 - Type 2 diabetes mellitus without complications Status: Acute DS: Summary Hospital Course Reason for hospitalization: Right foot neuropathic deformity, diabetic foot ulcer, osteomyelitis Hospital Course: patient admitted and taken to the operating room on March 02 for right transtibial amputation with tib-fib arthrodesis and cast fitting. Patient tolerated the procedure without complication. Postoperative course complicated by pain control. Cast was split on the night of surgery by surgeon. Patient was started on intravenous morphine [employer]. Extensive pain medication regimen not able to be performed secondary to hypotension. Hospitalist consult for assistance with medical management including diabetes, acute renal failure and heart disease. Patient pain gradually improved. Evaluated by Physical therapy and was unable to be independent with transfers or ambulation. Evaluated by TR and approved for transfer. Patient's blood pressure eventually stabilized with conservative care. Patient otherwise stable at time of discharge. Status at Discharge Cognitive/behavioral status at discharge: Alert and oriented x3. Functional status at discharge: independent ambulation ( Requires assistance x2 for transfers and ambulation) Overall status at discharge: patient is not back to baseline Time Spent with Patient Time attestation: Total time spent providing and/or coordinating discharge services: Time spent: Greater than 30 minutes Specific discharge activities: nonweightbearing right leg Exam Const: General: healthy appearing; No in distress or confusion Orientation/consciousness: patient oriented x3 and No confusion HENMT: Head: normal to inspection, normocephalic and atraumatic Eyes: Conjunctivae: conjunctivae normal Sclera: sclerae normal Resp: Effort & Inspection: normal respiratory effort and no audible wheezes Cardio: Jugular venous distension: no JVD Rate: regular rate Rhythm
[2020-03-07 17:00] LABS: Glucose Point of Care 168 (65-105)
== END 2020-03-07 15:30 | DRG 617 ==
LOC: ANHSURGERY 09:17 → ANHIMU 09:17 → ANH3MEDSUR 13:23
PROVIDERS: Nurse Practitioner; Physician Assistant; Admitting Provider Orthopaedic Surgery; PCP Family Medicine; Visit Provider Orthopaedic Surgery
PROC: 0Y6H0Z1 Detachment at Right Lower Leg, High, Open Approach (ICD-10-PCS; CPT 27882; principal; 2020-03-02 08:30)
DX: E11.69 Type 2 diabetes mellitus with other specified complication (principal); D62 Acute posthemorrhagic anemia; M86.18 Other acute osteomyelitis, other site; L97.415 Non-pressure chronic ulcer of right heel and midfoot with muscle involvement without evidence of necrosis; Z68.41 Body mass index [BMI] 40.0-44.9, adult; E08.621 Diabetes mellitus due to underlying condition with foot ulcer; E11.42 Type 2 diabetes mellitus with diabetic polyneuropathy; N17.9 Acute kidney failure, unspecified; E66.01 Morbid (severe) obesity due to excess calories; I10 Essential (primary) hypertension; E11.610 Type 2 diabetes mellitus with diabetic neuropathic arthropathy; E78.5 Hyperlipidemia, unspecified; D64.9 Anemia, unspecified; G47.33 Obstructive sleep apnea (adult) (pediatric); E87.5 Hyperkalemia; Z79.4 Long term (current) use of insulin; Z87.891 Personal history of nicotine dependence; M17.10 Unilateral primary osteoarthritis, unspecified knee; E11.319 Type 2 diabetes mellitus with unspecified diabetic retinopathy without macular edema; M47.892 Other spondylosis, cervical region
CPT/HCPCS: 36415; 71045; 80048; 80053; 83735; 85025; 85027; 85999; 87040; 88307; 97110; 97116; 97161; 97166; 97530; 97535; A9270; C1713; J0171; J0690; J1650; J1720; J1815; J1885; J2250; J2270; J2370; J2405; J2704; J3010; J3360; J3475; J3480; J7120

== ENCOUNTER 2020-03-07 15:40 | IRF | payer OTHER, SELFPAY ==
--- NOTE | 2020-03-07 16:02 | ADMGEN ---
This patient, Neil Haines, was admitted to [facility] Room 226-02. Patient/family oriented to hospital policies and general routines including ID bracelet, bed and alarms, visiting hours, pain management, procedures, bathroom and other care routines, personal items, smoking policy, room service/diet, and visiting hours. Valuables list has been completed. Information on how to activate the Rapid Response Team has been discussed. Patient/Family are encouraged to report perceived risks to care and to ask questions if they do not understand what they are told or what they should do. 1540, patient arrived to floor, transported by bed from 3rd floor, is with patient. he is alert and oriented x4
[2020-03-07 16:20] VITALS: BMI 40.5
[2020-03-07 16:21] VITALS: BP 107/65; PULSE 101; RESP 20; TEMP 36.6; O2SAT 95
[2020-03-07 18:03] VITALS: BMI 40.5
[2020-03-07 20:16] LABS: Glucose Point of Care 233 (65-105)
[2020-03-07] MEDS: traZODone HCL 50 MG TABLET 150 MG PO (20:53)
[2020-03-07] MEDS: metFORMIN HCL XR 500 MG TAB.SR.24H 2000 MG PO (20:54)
[2020-03-07] MEDS: INSULIN DETEMIR 100 UNITS/ML 30 UNITS SUB-Q (20:56)
[2020-03-07 21:09] VITALS: BP 138/79; PULSE 88; RESP 20; TEMP 36.6; O2SAT 98
[2020-03-08 05:06] LABS: Basophils Percent Auto 0.4 % (0.2-1.2); Eosinophils Absolute Auto 0.3 K/mm3 (0-0.3); Eosinophils Percent Auto 5.6 % (0-4.4); Hemoglobin 8.7 g/dL (14.0-18.0); Immature Granulocyte Absolute 0.01 K/mm3 (0.00-0.031); Immature Granulocyte Percent A 0.2 % (0-0.5); Lymphocytes Absolute Auto 1.12 K/mm3 (0.9-3.2); Lymphocytes Percent Auto 20.1 % (18.3-44.2); Mean Corpuscular HGB Conc 32.2 g/dl (32-36); Mean Corpuscular Hemoglobin 29.1 pg (26-34); Mean Corpuscular Volume 90.3 fl (80-100); Mean Platelet Volume 10.4 fl (7.4-10.4); Monocytes Absolute Auto 0.6 K/mm3 (0.1-0.6); Monocytes Percent Auto 11.3 % (2.6-8.5); Neutrophils Absolute Auto 3.5 K/mm3 (1.3-6.7); Neutrophils Percent Auto 62.4 % (45.5-73.1); Platelet Count Result 263 k/mm3 (150-375); Red Blood Count 2.99 M/mm3 (4.6-6.20); Red Cell Distribution Width 13.2 % (11.5-14.5); White Blood Count 5.6 K/mm3 (4.5-10.0)
[2020-03-08 05:23] LABS: Anion Gap 7 mmol/L (8-16); Blood Urea Nitrogen 16 mg/dL (9-20); Calcium 8.9 mg/dL (8.4-10.2); Carbon Dioxide 31 mmol/L (22-30); Chloride 98 mmol/L (98-107); Estimated CRCL calculation 88 ml/min; Estimated Glomerular Filt Rate > 60; Glucose 173 mg/dL (75-110); Magnesium 1.5 mg/dL (1.6-2.3); Potassium 4.2 mmol/L (3.4-5.0); Sodium 136 mmol/L (137-145)
[2020-03-08 05:45] VITALS: BP 148/71; PULSE 89; RESP 18; TEMP 36.2; O2SAT 100
[2020-03-08 06:43] LABS: Glucose Point of Care 136 (65-105)
[2020-03-08 08:00] VITALS: PULSE 96; RESP 20; O2SAT 98
--- NOTE | 2020-03-08 08:05 | PM.PNORT ---
Progress Note: A&P Assessment and Plan (1) S/P BKA (below knee amputation): Qualifiers: Laterality: right Qualified Code(s): Z89.511 - Acquired absence of right leg below knee Code(s): Z89.519 - Acquired absence of unspecified leg below knee Status: Acute Assessment and Plan: Postoperative day 6. Right below-knee amputation. Patient transferred to [facility] yesterday. Pain control better, more comfortable. PT/ OT nonweightbearing right lower extremity. Stump protector when up. Daily dressing changes. May wash and bathe. We will continue to follow. Subjective Subjective Date/Time Seen: 03/08/20 08:05 Patient transferred to [facility] yesterday. No new complaints. States right leg amputation site pain improved. Denies fever or chills. Tolerating regular diet. Exam Const: General: healthy appearing; No in distress or confusion Orientation/consciousness: patient oriented x3 and No confusion HENMT: Head: normal to inspection, normocephalic and atraumatic Eyes: Conjunctivae: conjunctivae normal Sclera: sclerae normal Resp: Effort & Inspection: normal respiratory effort and no audible wheezes Cardio: Jugular venous distension: no JVD Rate: regular rate Rhythm: regular rhythm Neuro: General: patient oriented x3 and No confusion Extrem: Left lower extremity: normal to inspection and foot Details: normal capillary refill, abnormal ROM of toe Details: no pain with active ROM and no pain with passive ROM, vascular exam Details: dorsalis pedis pulse present and normal capillary refill, motor-sensory exam light-touch abnormal in all toes and other ( Negative Homans sign) Other: New stump protector. Stump sleeve c/d/i. Incision clean and dry. Decreased swelling amputation stump. No erythema or drainage. No warmth. Psych: Affect: normal affect Objective Data Vital Signs Vital Signs: Vital Signs - 24 hr 03/07/20 16:21 03/07/20 21:09 03/08/20 05:45 Temperature 97.9 F 97.8 F 97.2 F L Pulse Rate 101 H 88 89 Respiratory Rate 20 20 18 Blood Pressure 107/65 138/79 148/71 H Pulse Oximetry 95 98 100 Intake/Output Intake/Output: Intake & Output 03/05/20 03/06/20 03/07/20 03/08/20 23:59 23:59 23:59 23:59 Intake Total 240 Balance 240 Meds/Results Medications: Active Medications Generic Name Dose Route Start Last Admin Trade Name Freq PRN Reason Stop Dose Admin Hydrocodone Bitart/Acetaminophen 1 tab 03/07/20 17:40 Alden 5-325 Mg PO Q6H PRN Pain (Scale Score 4-6) Albuterol 2 puff 03/07/20 17:40 Proventil Hfa INHALATION Q6H PRN shortness of breath or wheezing Atorvastatin Calcium 20 mg 03/08/20 09:00 Lipitor PO DAILY NOLA Dextrose 12.5 gm 03/07/20 17:46 Dextrose 50% Syringe IV PUSH PRN PRN Hypoglycemia Protocol Diltiazem HCl 120 mg 03/08/20 09:00 Cardizem Cd PO DAILY NOLA Furosemide 40 mg 03/08/20 09:00 Lasix Tablet PO DAILY NOLA Glucagon 1 mg 03/07/20 17:46 Glucagon For Inj IM PRN PRN Hypoglycemia Protocol Glucose 15 gm 03/07/20 17:46 Glutose 15 PO PRN PRN Hypoglycemia Protocol Dextrose 1,000 mls @ 100 mls/hr 03/07/20 17:46 Dextrose 5% 1,000 Ml IVPB PRN PRN Hypoglycemia Protocol Insulin Aspart 10 units 03/07/20 17:00 03/07/20 20:53 Novolog SUB-Q 04/07/20 17:01 Not Given TIDWM NOLA Insulin Detemir 30 units 03/07/20 21:00 03/07/20 20:56 Levemir SUB-Q 04/06/20 21:01 30 units HS NOLA Administration Metformin HCl 2,000 mg 03/07/20 18:00 03/07/20 20:54 Glucophage Xr PO 2,000 mg QPM NOLA Administration Non-Formulary Medication 1 mg 03/14/20 09:00 Semaglutide [Ozempic] SUB-Q 04/13/20 09:01 WEEKLY NOLA Pantoprazole Sodium 40 mg 03/08/20 09:00 Protonix PO QAM NOLA Trazodone HCl 150 mg 03/07/20 21:00 03/07/20 20:53 Desyrel PO 150 mg HS NOLA Administration
[2020-03-08] MEDS: INSULIN ASPART (*BKC) 100 UNITS/ML 10 UNITS SUB-Q ×3 (09:16→18:27)
[2020-03-08] MEDS: ATORVASTATIN 20 MG TABLET PO (09:16)
[2020-03-08] MEDS: PANTOPRAZOLE 40 MG TABLET PO (09:17)
[2020-03-08] MEDS: FUROSEMIDE 40 MG TABLET PO (09:17)
--- NOTE | 2020-03-08 10:00 | WPDREHABHP ---
H&P: HPI History of Present Illness Date/Time: 03/08/20 13:01 Chief complaint: R BKA Narrative: Neil Haines is a 59 year old male HISTORY OF PRESENT ILLNESS: The patient's primary rehab impairment category is amputation lower extremity The etiologic diagnosis is right foot diabetic foot ulcer, osteomyelitis, and peripheral neuropathy I saw this patient [id number] on March 08, 2020 at 10:00 a.m. The patient is a 59-year-old overweight gentleman with type 2 diabetes and peripheral neuropathy with a history of recurrent of foot ulcerations, infections and osteomyelitis. The patient is status post previous multiple surgical debridements. The patient was admitted to [facility] diabetic foot ulceration and infection on March 02, 2020. The patient and family desired definitive treatment with the transitional or other trans tibial amputation. He a right [id number] amputation was performed on March 02, 2020. Postop complication included tachycardia or hypotension hypertension acute blood-loss anemia, hyperglycemia, hyponatremia, acute kidney injury hypomagnesemia hyperkalemia and acute postoperative pain. The postoperative cast was byvalved did patient's complains of pain not relieved by medication. Pain control was challenging the 1st few postoperative days due to intermittent hypotension and renal function preventing the use of certain medications at the time) narcotics and NSAIDs) on March 03, 2020 systolic blood pressure remained above 100. On March 06, 2020 the patient's home medication were resumed. The patient was cleared for discharge to [facility] pending receiving new stump protector after initial 1 was broken. The patient is being controlled with narcotic analgesics. I SCD for his left leg is being used for DVT prophylaxis. The patient's present alert and oriented x3 and demonstrates impaired balance decreased strength and endurance and has only ambulated 10 feet. The patient has not traveled outside the [place] or had contact with someone who is ill status travel outside the [place] in the past 21 days. The patient has not traveled to an area of the [place] that is experiencing known transmission of the Coronavirus and has not had close personal contact with anyone that has. The patient does not have a fever. The patient is not experiencing lower respiratory illness symptoms. The patient has a COVID test on March 01, 2020 that was negative Therapy was initiated at the acute care facility and the patient transferred to us from [facility] on March 07, 2020 FALLS OR SURGERIES: The patient has had major surgeries in the 100 days prior to admission. They had no falls in the past year. They had no falls with injury in the past year. PAST MEDICAL HISTORY: the most recent 1 are acute blood-loss anemia, Charcot foot due to diabetes mellitus, Charcot diabetes mellitus, Charcot joint arthropathy in type 2 diabetes mellitus, degenerative arthritis of the cervical spine ( on diclofenac ) diabetic mellitus with diabetic autonomic neuropathy and diabetic sensory neuropathy associated with type 2 diabetes mellitus multiple diabetic foot ulcer associated with diabetes mellitus due to underlying condition, diabetic retinopathy associated with type 2 diabetes mellitus left foot fracture hyperlipidemia hyponatremia knee osteoarthritis left ventricular hypertrophy morbid obesity BMI of 45 to 49 obstructive sleep apnea sleep study June 2015 recommended CPAP of 14 osteomyelitis and vision abnormalities PAST SURGICAL HISTORY: wisdom tooth extraction circumcision foot surgery and tonsillectomy SOCIAL HISTORY: the patient lives at home with his his home is a split level home with 13 steps between the bedroom and the main living area. The patient was using a cane prior to his hospitalization and was independent in ADLs. The patient has plans to state his [id number] one-story home out rehab completion if he is saul
[2020-03-08 12:24] LABS: Glucose Point of Care 150 (65-105)
[2020-03-08 13:55] VITALS: BMI 40.5
[2020-03-08 14:00] VITALS: BP 120/78; PULSE 101; RESP 20; TEMP 37.1; O2SAT 98
--- NOTE | 2020-03-08 14:14 | PCNSR ---
On 03/08/20, the student, Sid Coulter, provided care and completed [facility] documentation on this patient. I have reviewed the student's documentation and agree with the findings.
--- NOTE | 2020-03-08 15:09 | RPD ---
INDIVIDUALIZED PLAN OF CARE FOR Neil Haines Brief Synthesis of Pre-Admission Screen, Post-Admission Evaluation and Therapy Evaluations: The patient presents to rehab with a right foot diabetic foot ulcer s/p right [id number] (BKA). Comorbidities include acute blood loss anemia, s/p right BKA, degenerative arthritis of cervical spine, diabetes mellitus type II, knee osteoarthritis, left ventricular hypertrophy, morbid obesity, obstructive sleep apnea, hyperglycemia, hyponatremia, CARLOS, hypomagnesemia, hyperkalemia, and acute post-operative pain. The complexity of the patient's medical management, nursing, and therapy needs require an inpatient rehab hospital stay with a physician-led interdisciplinary team approach. The patient?s needs will be best met in an intensive program vs. at a lower level of care. The patient requires physician services for medical oversight, management of post-op complications in the setting of present comorbidities, management of diabetes mellitus, and pain management. Post-op complications have included hypotension, tachycardia, hyperglycemia, hyponatremia, acute kidney injury, hypomagnesemia, hyperkalemia, and acute post-operative pain. The patient requires nursing services for anticoagulation therapy, diabetes training, DVT prophylactics, IV administration, infection protection, medication management and education, pressure relief, and wound care. Deficits include:ADLs, Balance, Endurance, Family Training/Education, Mobility, Pain Management, ROM, Safety, Transfers, and Strength. Motorman/Woman/Case Management for: Discharge Planning and Patient/Family Counseling Physical Therapy: 5 days per week for 90 minutes. Treatments may include: Therapeutic Exercise, Gait Training, Neuromuscular Re-education, Transfer Training, Community Reintegration, Bed Mobility, Patient/Family Education, Wheelchair Mobility Group Therapy/Concurrent Therapy Rationales: -Improve attention span during functional activities in a distracted environment. -Enhance problem solving and/or adequate judgment skills during functional activities in a distracted environment. -Promote increased safety awareness in a distracted environment to reduce fall risk with functional tasks, transfers, and ambulation to allow a more safe, self-sufficient return to the home environment. -Improve dynamic balance skills to promote safety and independence with functional activities in a distracted environment for maximum gain. Occupational Therapy: 5 days per week for 90 minutes. Treatments may include: Therapeutic Exercise, Therapeutic Activity, Cognitive Training, Self-Care Transfer Training, Community Reintegration, Home Management, Patient/Family Education, Wheelchair Mobility Training, Energy Conservation Training Group Therapy/Concurrent Therapy Rationales: -Allow therapist to observe and teach generalization and carry-over of skills learned in individual therapy. -Enhance problem solving and sequencing skills during therapeutic activities in a distracted environment. -Promote increased safety awareness in a realistic setting to reduce fall risk with functional tasks due to visual and verbal distractions. -Increase functional level with ADLs, ADL transfers and use of adaptive equipment through therapeutic activities with others while promoting safety to allow a more safe, self-sufficient return home. Medical Prognosis: Good Anticipated Length of Stay: 7 days Rehab Goals: Eating Goal: 06-Independent Oral Hygiene Goal: 06-Independent Toileting Hygiene Goal: 06-Independent Shower/Bathe Self Goal: 06-Independent Upper Body Dressing Goal: 06-Independent Lower Body Dressing Goal: 06-Independent Putting On/Taking Off Footwear Goal: 06-Independent Rolling Left and Right Goal: 06-Independent Sit to Lying Goal: 06-Independent Lying to Sitting on Side of Bed Goal: 06-Independent Sit to Stand Goal: 06-Independent Chair/Ucq-bd-Pevpt Transfer Goal: 06-Independent
[2020-03-08 17:50] LABS: Glucose Point of Care 170 (65-105)
[2020-03-08] MEDS: metFORMIN HCL XR 500 MG TAB.SR.24H 2000 MG PO (18:29)
[2020-03-08 20:33] VITALS: BP 131/71; PULSE 91; RESP 18; TEMP 36.3; O2SAT 98
[2020-03-08] MEDS: traZODone HCL 50 MG TABLET 150 MG PO (20:56)
[2020-03-08] MEDS: INSULIN DETEMIR 100 UNITS/ML 30 UNITS SUB-Q (20:56)
[2020-03-08 21:02] LABS: Glucose Point of Care 128 (65-105)
[2020-03-09 05:23] VITALS: BP 137/80; PULSE 97; RESP 18; TEMP 36; O2SAT 100
[2020-03-09 06:46] LABS: Glucose Point of Care 152 (65-105)
[2020-03-09] MEDS: PANTOPRAZOLE 40 MG TABLET PO (09:50)
[2020-03-09] MEDS: ATORVASTATIN 20 MG TABLET PO (09:50)
[2020-03-09] MEDS: FUROSEMIDE 40 MG TABLET PO (09:50)
[2020-03-09] MEDS: INSULIN ASPART (*BKC) 100 UNITS/ML 10 UNITS SUB-Q ×3 (09:51→17:39)
[2020-03-09 12:31] LABS: Glucose Point of Care 176 (65-105)
[2020-03-09] MEDS: LOPERAMIDE HCL 2 MG CAPSULE PO (12:33)
[2020-03-09 14:00] VITALS: BP 139/78; PULSE 86; RESP 18; TEMP 36.8; O2SAT 97
[2020-03-09] MEDS: metFORMIN HCL XR 500 MG TAB.SR.24H 2000 MG PO (17:33)
[2020-03-09 17:44] LABS: Glucose Point of Care 198 (65-105)
[2020-03-09 20:21] VITALS: BP 118/55; PULSE 83; RESP 18; TEMP 36.4; O2SAT 99
[2020-03-09] MEDS: INSULIN DETEMIR 100 UNITS/ML 30 UNITS SUB-Q (20:54)
[2020-03-09] MEDS: traZODone HCL 50 MG TABLET 150 MG PO (20:54)
[2020-03-09 21:03] LABS: Glucose Point of Care 107 (65-105)
[2020-03-10 05:14] VITALS: BP 118/55; PULSE 86; RESP 18; TEMP 36.3; O2SAT 97
[2020-03-10 06:15] LABS: Glucose Point of Care 143 (65-105)
[2020-03-10] MEDS: INSULIN ASPART (*BKC) 100 UNITS/ML 10 UNITS SUB-Q ×2 (09:07→17:36)
[2020-03-10] MEDS: ATORVASTATIN 20 MG TABLET PO (09:11)
[2020-03-10] MEDS: PANTOPRAZOLE 40 MG TABLET PO (09:11)
[2020-03-10] MEDS: FUROSEMIDE 40 MG TABLET PO (09:11)
[2020-03-10 12:42] LABS: Glucose Point of Care 159 (65-105)
[2020-03-10 14:00] VITALS: BP 114/67; PULSE 95; RESP 20; TEMP 36.2; O2SAT 99
--- NOTE | 2020-03-10 14:26 | PM.PNORT ---
Progress Note: A&P Assessment and Plan (1) S/P BKA (below knee amputation): Qualifiers: Laterality: right Qualified Code(s): Z89.511 - Acquired absence of right leg below knee Code(s): Z89.519 - Acquired absence of unspecified leg below knee Status: Acute Assessment and Plan: POD #8: RIGHT BKA Patient currently in TRC. Working well with PT/OT. NWB RLE. Pain well controlled. Continue stump protector when OOB. Daily dressing changes. Monitor incision. [place] not to be removed x3 weeks from DOS. Wash and bath. Will continue to follow. Follow up scheduled in our office as an outpatient on 03/22. Subjective Subjective Date/Time Seen: 03/10/20 14:26 POD #8: RIGHT BKA Patient in TRC at this time. Concerns about incision. Working well with PT/OT. Pain well controlled. Denies fevers/chills. Review of Systems Constitutional: Constitutional: Denies chills, Denies fatigue, Denies fever(s), Denies lethargy and Denies weakness Cardiovascular: Cardiovascular: Denies chest pain, Reports leg edema (right stump ) and Denies lightheadedness Respiratory: Respiratory: Denies chest congestion, Denies cough, Denies dyspnea and Denies wheezing Gastrointestinal: Gastrointestinal: Denies abdominal pain, Denies bloating, Denies constipation, Denies diarrhea, Denies nausea and Denies vomiting Genitourinary: Genitourinary: Denies dysuria Musculoskeletal: Musculoskeletal: Reports other (right stump with mild discomfort) Exam Const: General: comfortable and no acute distress Resp: Effort & Inspection: normal respiratory effort Cardio: Rate: regular rate Rhythm: regular rhythm GI: Inspection: non-distended Skin: General skin exam: normal color (incision well-approximated ) Neuro: Cognition (Neuro): normal cognition Sensory Exam: normal sensation Extrem: General: normal exam except as noted (right stump ) Left lower extremity: normal to inspection Other: Right stump with dressing c/d/i. Dressing removed. Incision well-approximated. Fifi intact. No surrounding redness, warmth. Mild swelling. No drainage. Mild tenderness throughout entire incision but no fluctuance or signs of underlying abscess. Psych: Mental Status: mental status grossly normal Affect: normal affect Objective Data Vital Signs Vital Signs: Vital Signs - 24 hr 03/09/20 20:21 03/10/20 05:14 Temperature 36.4 C 36.3 C L Pulse Rate 83 86 Respiratory Rate 18 18 Blood Pressure 118/55 L 118/55 L Pulse Oximetry 99 97 Intake/Output Intake/Output: Intake & Output 03/07/20 03/08/20 03/09/20 03/10/20 23:59 23:59 23:59 23:59 Intake Total 240 480 240 240 Balance 240 480 240 240 Meds/Results Medications: Active Medications Generic Name Dose Route Start Last Admin Trade Name Freq PRN Reason Stop Dose Admin Hydrocodone Bitart/Acetaminophen 1 tab 03/07/20 17:40 03/09/20 09:55 [place] 5-325 Mg PO 1 tab Q6H PRN Administration Pain (Scale Score 4-6) Albuterol 2 puff 03/07/20 17:40 Proventil Hfa INHALATION Q6H PRN shortness of breath or wheezing Atorvastatin Calcium 20 mg 03/08/20 09:00 03/10/20 09:11 Lipitor PO 20 mg DAILY NOLA Administration Dextrose 12.5 gm 03/07/20 17:46 Dextrose 50% Syringe IV PUSH PRN PRN Hypoglycemia Protocol Diltiazem HCl 120 mg 03/08/20 09:00 03/10/20 09:11 Cardizem Cd PO 120 mg DAILY NOLA Administration Furosemide 40 mg 03/08/20 09:00 03/10/20 09:11 Lasix Tablet PO 40 mg DAILY NOLA Administration Glucagon 1 mg 03/07/20 17:46 Glucagon For Inj IM PRN PRN Hypoglycemia Protocol Glucose 15 gm 03/07/20 17:46 Glutose 15 PO PRN PRN Hypoglycemia Protocol Dextrose 1,000 mls @ 100 mls/hr 03/07/20 17:46 Dextrose 5% 1,000 Ml IVPB PRN PRN Hypoglycemia Protocol Insulin Aspart 10 units 03/07/20 17:00 03/10/20 09:07 Novolog SUB-Q
--- NOTE | 2020-03-10 15:46 | WPDNEURORHBP ---
Subjective Date/time seen: 03/10/20 15:46 Interval history: this 59-year-old diabetic gentleman with being overweight is here status post right BKA yesterday the patient during the therapy bumped his stump while the dressing and the covering was on and complaining of some more discomfort which is better than yesterday and also redness around the area where it headed denies any fever chills nausea vomiting headache sore throat we have requested a follow-up visit by the orthopedic physician or his seam steamer to look at it hoping that they will be able to see it if they want to do anything differently at this point we will simply wait and observe Review of Systems Review of Systems: All systems reviewed & are unremarkable except as noted in HPI and below Functional Status Ambulation Ability Ability to Ambulate 10 Feet: Standby Assistance Ability to Ambulate 50 Feet With 2 Turns: Standby Assistance Ambulation Assistive Devices: Walker, Wheeled Transfers Ability Ability to Transfer In/Out of Chair: Independent Exam Const: General: comfortable and no acute distress HENMT: General nose exam: Normal nares present Mouth: Yes moist mucous membranes Eyes: General: appearance normal, both eyes and all related structures Neck: Neck: supple and no JVD Resp: Effort & Inspection: normal respiratory effort Auscultation: clear to auscultation bilaterally Cardio: Rate: regular rate Rhythm: regular rhythm GI: GI Palp: Yes Soft to palpation Auscultation: normal bowel sounds Skin: General skin exam: normal color and no rashes or lesions noted Neuro: Other: patient is awake alert well oriented engage in therapy and making progress does have evidence of peripheral neuropathy is also complaining of some discomfort over the right palm however is probably the use of the walker Extrem: Other: the patient is stump right [id number] shows a little red spot above the incision at the lateral aspect and also little separation of suture line with a stitch intact in the middle we have requested the orthopedic physician to follow over his seam steamer Psych: Mental Status: mental status grossly normal Objective Data Vital Signs Vital Signs: Vital Signs - 24 hr 03/09/20 20:21 03/10/20 05:14 03/10/20 14:00 Temperature 36.4 C 36.3 C L 36.2 C L Pulse Rate 83 86 95 Respiratory Rate 18 18 20 Blood Pressure 118/55 L 118/55 L 114/67 Pulse Oximetry 99 97 99 Intake/Output Intake/Output: Intake & Output 03/07/20 03/08/20 03/09/20 03/10/20 23:59 23:59 23:59 23:59 Intake Total 240 480 240 480 Balance 240 480 240 480 Meds/Results Medications: Active Medications Generic Name Dose Route Start Last Admin Trade Name Freq PRN Reason Stop Dose Admin Hydrocodone Bitart/Acetaminophen 1 tab 03/07/20 17:40 03/10/20 14:56 [place] 5-325 Mg PO 1 tab Q6H PRN Administration Pain (Scale Score 4-6) Albuterol 2 puff 03/07/20 17:40 Proventil Hfa INHALATION Q6H PRN shortness of breath or wheezing Atorvastatin Calcium 20 mg 03/08/20 09:00 03/10/20 09:11 Lipitor PO 20 mg DAILY NOLA Administration Dextrose 12.5 gm 03/07/20 17:46 Dextrose 50% Syringe IV PUSH PRN PRN Hypoglycemia Protocol Diltiazem HCl 120 mg 03/08/20 09:00 03/10/20 09:11 Cardizem Cd PO 120 mg DAILY NOLA Administration Furosemide 40 mg 03/08/20 09:00 03/10/20 09:11 Lasix Tablet PO 40 mg DAILY NOLA Administration Glucagon 1 mg 03/07/20 17:46 Glucagon For Inj IM PRN PRN Hypoglycemia Protocol Glucose 15 gm 03/07/20 17:46 Glutose 15 PO PRN PRN Hypoglycemia Protocol Dextrose 1,000 mls @ 100 mls/hr 03/07/20 17:46 Dextrose 5% 1,000 Ml IVPB PRN PRN Hypoglycemia Protocol Insulin Aspart 10 units 03/07/20 17:00 03/10/20 14:47 Novolog SUB-Q 04/07/20 17:01 Not Given TIDWM NOLA Insulin Detemir 30 units 03/07/20 21:00 03/09/20 20:54
[2020-03-10] MEDS: metFORMIN HCL XR 500 MG TAB.SR.24H 2000 MG PO (17:32)
[2020-03-10 17:41] LABS: Glucose Point of Care 216 (65-105)
[2020-03-10] MEDS: INSULIN DETEMIR 100 UNITS/ML 30 UNITS SUB-Q (21:12)
[2020-03-10] MEDS: traZODone HCL 50 MG TABLET 150 MG PO (21:13)
[2020-03-10 21:27] LABS: Glucose Point of Care 146 (65-105)
[2020-03-10 22:00] VITALS: BP 109/55; PULSE 89; RESP 20; TEMP 37.1; O2SAT 100
[2020-03-11 06:00] VITALS: BP 114/48; PULSE 82; RESP 20; TEMP 37; O2SAT 93
[2020-03-11 06:37] LABS: Glucose Point of Care 164 (65-105)
[2020-03-11] MEDS: ATORVASTATIN 20 MG TABLET PO (09:05)
[2020-03-11] MEDS: PANTOPRAZOLE 40 MG TABLET PO (09:05)
[2020-03-11] MEDS: FUROSEMIDE 40 MG TABLET PO (09:05)
[2020-03-11] MEDS: INSULIN ASPART (*BKC) 100 UNITS/ML 10 UNITS SUB-Q ×2 (09:17→17:53)
[2020-03-11 11:42] LABS: Glucose Point of Care 101 (65-105)
[2020-03-11 14:00] VITALS: BP 109/62; PULSE 98; RESP 98; TEMP 36.1; O2SAT 98
[2020-03-11] MEDS: metFORMIN HCL XR 500 MG TAB.SR.24H 2000 MG PO (17:53)
[2020-03-11 17:54] LABS: Glucose Point of Care 199 (65-105)
--- NOTE | 2020-03-11 18:41 | WPDNEURORHBP ---
Subjective Date/time seen: 03/11/20 18:41 Interval history: this 59-year-old gentleman is here after having had a right BKA he is doing fairly well denies any headache nausea vomiting chest pain shortness of breath fever chills sore throat The patient's orthopedic notes were reviewed appreciated they have seen the patient stump and there quite satisfied with him moving forward Review of Systems Review of Systems: All systems reviewed & are unremarkable except as noted in HPI and below Functional Status Ambulation Ability Ability to Ambulate 10 Feet: Contact Guard Ability to Ambulate 50 Feet With 2 Turns: Contact Guard Ambulation Assistive Devices: Walker, Wheeled Transfers Ability Ability to Transfer In/Out of Chair: Independent Exam Const: General: comfortable and no acute distress HENMT: General nose exam: Normal nares present Mouth: Yes moist mucous membranes Eyes: General: appearance normal, both eyes and all related structures Neck: Neck: supple and no JVD Resp: Effort & Inspection: normal respiratory effort Auscultation: clear to auscultation bilaterally Cardio: Rate: regular rate Rhythm: regular rhythm GI: GI Palp: Yes Soft to palpation Auscultation: normal bowel sounds Skin: General skin exam: normal color and no rashes or lesions noted Neuro: Other: patient is awake alert well oriented time place and person with evidence of peripheral neuropathy weakness is improved Extrem: Other: right BKA is clean no sign of infectious process is not Psych: Mental Status: mental status grossly normal Objective Data Vital Signs Vital Signs: Vital Signs - 24 hr 03/10/20 22:00 03/11/20 06:00 03/11/20 14:00 Temperature 37.1 C 37.0 C 36.1 C L Pulse Rate 89 82 98 Respiratory Rate 20 20 98 H Blood Pressure 109/55 L 114/48 L 109/62 Pulse Oximetry 100 93 98 Intake/Output Intake/Output: Intake & Output 03/08/20 03/09/20 03/10/20 03/11/20 23:59 23:59 23:59 23:59 Intake Total 480 240 720 240 Balance 480 240 720 240 Meds/Results Medications: Active Medications Generic Name Dose Route Start Last Admin Trade Name Freq PRN Reason Stop Dose Admin Hydrocodone Bitart/Acetaminophen 1 tab 03/07/20 17:40 03/10/20 14:56 [place] 5-325 Mg PO 1 tab Q6H PRN Administration Pain (Scale Score 4-6) Albuterol 2 puff 03/07/20 17:40 Proventil Hfa INHALATION Q6H PRN shortness of breath or wheezing Atorvastatin Calcium 20 mg 03/08/20 09:00 03/11/20 09:05 Lipitor PO 20 mg DAILY N[place] Administration Dextrose 12.5 gm 03/07/20 17:46 Dextrose 50% Syringe IV PUSH PRN PRN Hypoglycemia Protocol Diltiazem HCl 120 mg 03/08/20 09:00 03/11/20 09:05 Cardizem Cd PO 120 mg DAILY NOL[place] Administration Furosemide 40 mg 03/08/20 09:00 03/11/20 09:05 Lasix Tablet PO 40 mg DAILY N[place] Administration Glucagon 1 mg 03/07/20 17:46 Glucagon For Inj IM PRN PRN Hypoglycemia Protocol Glucose 15 gm 03/07/20 17:46 Glutose 15 PO PRN PRN Hypoglycemia Protocol Dextrose 1,000 mls @ 100 mls/hr 03/07/20 17:46 Dextrose 5% 1,000 Ml IVPB PRN PRN Hypoglycemia Protocol Insulin Aspart 10 units 03/07/20 17:00 03/11/20 17:53 Novolog SUB-Q 04/07/20 17:01 10 units TIDWM N[place] Administration Insulin Detemir 30 units 03/07/20 21:00 03/10/20 21:12 Levemir SUB-Q 04/06/20 21:01 30 units HS NOLA Administration Loperamide HCl 2 mg 03/09/20 10:37 03/09/20 12:33 Loperamide Hcl PO 2 mg PRN PRN Administration Diarrhea Metformin HCl 2,000 mg 03/07/20 18:00 03/11/20 17:53 Glucophage Xr PO 2,000 mg QPM NOLA Administration Non-Formulary Medication 1 mg 03/14/20 09:00 Semaglutide [Ozempic] SUB-Q 04/13/20 09:01 WEEKLY NOLA Pantoprazole Sodium 40 mg 03/08/20 09:00 03/11/20 09:05 Protonix PO 40 mg QAM N[place] Administration Trazodone HCl 150 mg 03/07/20 21:00
[2020-03-11] MEDS: INSULIN DETEMIR 100 UNITS/ML 30 UNITS SUB-Q (20:13)
[2020-03-11] MEDS: traZODone HCL 50 MG TABLET 150 MG PO (20:13)
[2020-03-11 20:17] LABS: Glucose Point of Care 166 (65-105)
[2020-03-11 22:00] VITALS: BP 122/62; PULSE 94; RESP 18; TEMP 36.9; O2SAT 99
[2020-03-12 06:00] VITALS: BP 126/59; PULSE 87; RESP 18; TEMP 36.4; O2SAT 98
[2020-03-12 06:38] LABS: Glucose Point of Care 154 (65-105)
[2020-03-12] MEDS: INSULIN ASPART (*BKC) 100 UNITS/ML 10 UNITS SUB-Q ×3 (09:07→18:15)
[2020-03-12] MEDS: FUROSEMIDE 40 MG TABLET PO (09:09)
[2020-03-12] MEDS: PANTOPRAZOLE 40 MG TABLET PO (09:09)
[2020-03-12] MEDS: ATORVASTATIN 20 MG TABLET PO (09:09)
[2020-03-12 12:03] LABS: Glucose Point of Care 150 (65-105)
[2020-03-12 14:00] VITALS: BP 121/68; PULSE 91; RESP 18; TEMP 36.1; O2SAT 97
[2020-03-12 17:04] LABS: Glucose Point of Care 159 (65-105)
[2020-03-12] MEDS: metFORMIN HCL XR 500 MG TAB.SR.24H 2000 MG PO (18:16)
[2020-03-12 20:03] LABS: Glucose Point of Care 307 (65-105)
[2020-03-12] MEDS: INSULIN DETEMIR 100 UNITS/ML 30 UNITS SUB-Q (20:27)
[2020-03-12] MEDS: traZODone HCL 50 MG TABLET 150 MG PO (21:57)
[2020-03-12 22:00] VITALS: BP 125/60; PULSE 96; RESP 20; TEMP 37.3; O2SAT 99
[2020-03-13 06:00] VITALS: BP 133/61; PULSE 80; RESP 18; TEMP 37; O2SAT 98
[2020-03-13 06:46] LABS: Glucose Point of Care 143 (65-105)
[2020-03-13] MEDS: ATORVASTATIN 20 MG TABLET PO (09:26)
[2020-03-13] MEDS: FUROSEMIDE 40 MG TABLET PO (09:26)
[2020-03-13] MEDS: INSULIN ASPART (*BKC) 100 UNITS/ML 10 UNITS SUB-Q ×3 (09:30→17:19)
[2020-03-13] MEDS: PANTOPRAZOLE 40 MG TABLET PO (11:25)
--- NOTE | 2020-03-13 12:38 | WPDNEURORHBP ---
Subjective Date/time seen: 03/13/20 12:38 Interval history: this 59 year oral overweight diabetic gentleman is here after having had a right [id number] amputation is doing fairly well making progress in the therapy and happy with the care denies any headache nausea vomiting chest pain shortness of breath fever chills sore throat Review of Systems Review of Systems: All systems reviewed & are unremarkable except as noted in HPI and below Functional Status Ambulation Ability Ability to Ambulate 10 Feet: Standby Assistance Ability to Ambulate 50 Feet With 2 Turns: Standby Assistance Ambulation Assistive Devices: Walker, Wheeled Transfers Ability Ability to Transfer In/Out of Chair: Independent Exam Const: General: comfortable and no acute distress HENMT: General nose exam: Normal nares present Mouth: Yes moist mucous membranes Eyes: General: appearance normal, both eyes and all related structures Neck: Neck: supple and no JVD Resp: Effort & Inspection: normal respiratory effort Auscultation: clear to auscultation bilaterally Cardio: Rate: regular rate Rhythm: regular rhythm GI: GI Palp: Yes Soft to palpation Auscultation: normal bowel sounds Skin: General skin exam: normal color and no rashes or lesions noted Neuro: Other: patient is awake alert well oriented with normal speech and language function normal cranial examination symmetrical strength in both upper extremity any weakness related to lower extremities related to the right [id number] amputation and the underlying medical issues has already been mentioned in my history physically cell and the follow-up notes Extrem: Other: right BKA is clean Psych: Mental Status: mental status grossly normal Objective Data Vital Signs Vital Signs: Vital Signs - 24 hr 03/12/20 14:00 03/12/20 22:00 03/13/20 06:00 Temperature 36.1 C L 37.3 C 37.0 C Pulse Rate 91 96 80 Respiratory Rate 18 20 18 Blood Pressure 121/68 125/60 133/61 Pulse Oximetry 97 99 98 Intake/Output Intake/Output: Intake & Output 03/10/20 03/11/20 03/12/20 03/13/20 23:59 23:59 23:59 23:59 Intake Total 720 240 240 240 Balance 720 240 240 240 Meds/Results Medications: Active Medications Generic Name Dose Route Start Last Admin Trade Name Freq PRN Reason Stop Dose Admin Hydrocodone Bitart/Acetaminophen 1 tab 03/07/20 17:40 03/10/20 14:56 [place] 5-325 Mg PO 1 tab Q6H PRN Administration Pain (Scale Score 4-6) Albuterol 2 puff 03/07/20 17:40 Proventil Hfa INHALATION Q6H PRN shortness of breath or wheezing Atorvastatin Calcium 20 mg 03/08/20 09:00 03/13/20 09:26 Lipitor PO 20 mg DAILY NOLA Administration Dextrose 12.5 gm 03/07/20 17:46 Dextrose 50% Syringe IV PUSH PRN PRN Hypoglycemia Protocol Diltiazem HCl 120 mg 03/08/20 09:00 03/13/20 09:26 Cardizem Cd PO 120 mg DAILY NOL[place] Administration Furosemide 40 mg 03/08/20 09:00 03/13/20 09:26 Lasix Tablet PO 40 mg DAILY N[place] Administration Glucagon 1 mg 03/07/20 17:46 Glucagon For Inj IM PRN PRN Hypoglycemia Protocol Glucose 15 gm 03/07/20 17:46 Glutose 15 PO PRN PRN Hypoglycemia Protocol Dextrose 1,000 mls @ 100 mls/hr 03/07/20 17:46 Dextrose 5% 1,000 Ml IVPB PRN PRN Hypoglycemia Protocol Insulin Aspart 10 units 03/07/20 17:00 03/13/20 09:30 Novolog SUB-Q 04/07/20 17:01 10 units TIDWM [place] Administration Insulin Detemir 30 units 03/07/20 21:00 03/12/20 20:27 Levemir SUB-Q 04/06/20 21:01 30 units HS NOL[place] Administration Loperamide HCl 2 mg 03/09/20 10:37 03/09/20 12:33 Loperamide Hcl PO 2 mg PRN PRN Administration Diarrhea Metformin HCl 2,000 mg 03/07/20 18:00 03/12/20 18:16 Glucophage Xr PO 2,000 mg QPM N[place] Administration Non-Formulary Medication 1 mg 03/14/20 09:00 Semaglutide [Ozempic] SUB-Q 04/13/20 09:01 WEEKLY
[2020-03-13 12:46] LABS: Glucose Point of Care 179 (65-105)
[2020-03-13 14:00] VITALS: BP 127/57; PULSE 78; RESP 18; TEMP 36.1; O2SAT 99
[2020-03-13] MEDS: metFORMIN HCL XR 500 MG TAB.SR.24H 2000 MG PO (17:16)
[2020-03-13 17:19] LABS: Glucose Point of Care 267 (65-105)
[2020-03-13] MEDS: traZODone HCL 50 MG TABLET 150 MG PO (20:07)
[2020-03-13] MEDS: INSULIN DETEMIR 100 UNITS/ML 30 UNITS SUB-Q (20:08)
[2020-03-13 20:15] VITALS: PULSE 78; RESP 18; O2SAT 99
[2020-03-13 22:00] VITALS: BP 116/58; PULSE 88; RESP 18; TEMP 37.7; O2SAT 99
[2020-03-13 22:31] LABS: Glucose Point of Care 171 (65-105)
[2020-03-14 06:00] VITALS: BP 115/66; PULSE 88; RESP 18; TEMP 36.4; O2SAT 97
[2020-03-14 06:45] LABS: Glucose Point of Care 153 (65-105)
[2020-03-14] MEDS: PANTOPRAZOLE 40 MG TABLET PO (08:55)
[2020-03-14] MEDS: ATORVASTATIN 20 MG TABLET PO (08:55)
[2020-03-14] MEDS: FUROSEMIDE 40 MG TABLET PO (08:55)
[2020-03-14 09:05] VITALS: PULSE 86; RESP 18; O2SAT 97
--- NOTE | 2020-03-14 10:08 | PCPTNOTE ---
Neil Haines was evaluated for a wheeled walker on 03/14/2020 by this physical therapist. The wheeled walker will resolve patient's mobility limitations and will be used for ADL's within the home. The patient can safely use the wheeled walker. ?The wheeled walker will resolve the patient?s mobility deficits, including transfers/gait/ADL's. Nasreen Crowell PT
--- NOTE | 2020-03-14 10:09 | PCPTNOTE ---
Addendum entered by Julia Crowell PT 03/14/20 14:46: add recommended w/c size information as follows: chair to be 20 x 20 Original Note: Julia Crowell PT completed an inpatient rehab wheelchair evaluation on Neil Haines on 03/14/2020. The patient is unable to safely and independently ambulate household distances due to their current impairments. Their diagnosis is R BKA and their impairments include decreased strength, decreased endurance, decreased range of motion, decreased balance, lower extremity weakness, and ataxia. Neil's weight bearing status is non weight-bearing on the right lower leg. The patient demonstrates significant functional mobility limitations that impair their ability to participate in mobility-related activities of daily living (MRADLs), including toileting, feeding, dressing, grooming, and bathing in the customary locations in the home. These limitations cannot be sufficiently resolved by the use of an appropriately fitted cane or walker. It is recommended that the patient utilize a wheelchair for functional mobility within the home in order to facilitate optimal safety, independence and participation in all MRADL's and adequately access their home environment on a regular basis. The patient's home provides adequate access between rooms, maneuvering space, and surfaces to accommodate the recommended wheelchair. The use of a wheelchair for functional mobility is strongly recommended and the patient is receptive to using the wheelchair. The use of this wheelchair will significantly improve the patient's ability to participate in MRADLS and the patient will use it on a regular basis in the home. This will facilitate optimal safety, independence, and participation. The patient has demonstrated sufficient physical and mental capabilities needed to safely propel a manual wheelchair that is provided in the home during a typical day. Recommended Wheelchair Frame: heavy duty standard Recommended Wheelchair Size: [q WCA.S] Recommended Wheelchair Cushion: standard Wheelchair Leg Recommendations: elevating, detachable - A heavy duty wheelchair is recommended because the patient weighs more than 250 pounds. A heavy duty wheelchair is recommended because the patient has severe spasticity. - Elevating legrests are recommended because the patient has a musculoskeletal condition or the presence of a cast or brace which prevents 90 degree flexion at the knee. Elevating legrests are recommended because the patient has significant edema of the lower extremities that requires an elevating legrest. - Anti-tippers are recommended due to patient demonstrating increased risk for falls. They would benefit from anti-tippers with added safety and stabilization. Julia Crowell PT ___03/14/20___ Evaluating Therapist Date I agree with and certify that the above recommendation is medically necessary. Referring Physician Date I agree with and certify that the above recommendation is medically necessary. Referring Physician Date
[2020-03-14] MEDS: INSULIN ASPART (*BKC) 100 UNITS/ML 10 UNITS SUB-Q ×3 (10:29→17:40)
[2020-03-14 12:07] LABS: Glucose Point of Care 191 (65-105)
--- NOTE | 2020-03-14 13:30 | WPDNEURORHBP ---
Subjective Date/time seen: 03/14/20 13:30 Interval history: this 59-year-old is diabetic and is here after having the right BKA which is doing fairly well is quite comfortable with therapy and making excellent progress and in fact in PT walked 70 feet good report from the occupational therapy it therapist and the nursing the patient will be going to [id number] house in the interim prior to his discharge Denies any complaints of headache nausea vomiting chest pain shortness of breath fever chills sore throat Review of Systems Review of Systems: All systems reviewed & are unremarkable except as noted in HPI and below Functional Status Ambulation Ability Ability to Ambulate 10 Feet: Standby Assistance Ability to Ambulate 50 Feet With 2 Turns: Standby Assistance Ambulation Assistive Devices: Walker, Wheeled Transfers Ability Ability to Transfer In/Out of Chair: Independent Exam Const: General: comfortable and no acute distress HENMT: General nose exam: Normal nares present Mouth: Yes moist mucous membranes Eyes: General: appearance normal, both eyes and all related structures Neck: Neck: supple and no JVD Resp: Effort & Inspection: normal respiratory effort Auscultation: clear to auscultation bilaterally Cardio: Rate: regular rate Rhythm: regular rhythm GI: GI Palp: Yes Soft to palpation Auscultation: normal bowel sounds Skin: General skin exam: normal color and no rashes or lesions noted Neuro: Other: patient's mental state examination normal cranial examination normal is strength is symmetrical improving course is limited because of the right BKA Extrem: Other: right BKA site is normal Psych: Mental Status: mental status grossly normal Objective Data Vital Signs Vital Signs: Vital Signs - 24 hr 03/13/20 14:00 03/13/20 20:15 03/13/20 22:00 Temperature 36.1 C L 37.7 C H Pulse Rate 78 78 88 Respiratory Rate 18 18 18 Blood Pressure 127/57 L 116/58 L Pulse Oximetry 99 99 99 03/14/20 06:00 03/14/20 09:05 Temperature 36.4 C L Pulse Rate 88 86 Respiratory Rate 18 18 Blood Pressure 115/66 Pulse Oximetry 97 97 Intake/Output Intake/Output: Intake & Output 03/11/20 03/12/20 03/13/20 03/14/20 23:59 23:59 23:59 23:59 Intake Total 240 240 660 240 Balance 240 240 660 240 Meds/Results Medications: Active Medications Generic Name Dose Route Start Last Admin Trade Name Freq PRN Reason Stop Dose Admin Hydrocodone Bitart/Acetaminophen 1 tab 03/07/20 17:40 03/10/20 14:56 [place] 5-325 Mg PO 1 tab Q6H PRN Administration Pain (Scale Score 4-6) Albuterol 2 puff 03/07/20 17:40 Proventil Hfa INHALATION Q6H PRN shortness of breath or wheezing Atorvastatin Calcium 20 mg 03/08/20 09:00 03/14/20 08:55 Lipitor PO 20 mg DAILY NOLA Administration Dextrose 12.5 gm 03/07/20 17:46 Dextrose 50% Syringe IV PUSH PRN PRN Hypoglycemia Protocol Diltiazem HCl 120 mg 03/08/20 09:00 03/14/20 08:54 Cardizem Cd PO 120 mg DAILY NOLA Administration Furosemide 40 mg 03/08/20 09:00 03/14/20 08:55 Lasix Tablet PO 40 mg DAILY N[place] Administration Glucagon 1 mg 03/07/20 17:46 Glucagon For Inj IM PRN PRN Hypoglycemia Protocol Glucose 15 gm 03/07/20 17:46 Glutose 15 PO PRN PRN Hypoglycemia Protocol Dextrose 1,000 mls @ 100 mls/hr 03/07/20 17:46 Dextrose 5% 1,000 Ml IVPB PRN PRN Hypoglycemia Protocol Insulin Aspart 10 units 03/07/20 17:00 03/14/20 12:38 Novolog SUB-Q 04/07/20 17:01 10 units TIDWM NOLA Administration Insulin Detemir 30 units 03/07/20 21:00 03/13/20 20:08 Levemir SUB-Q 04/06/20 21:01 30 units HS NOLA Administration Loperamide HCl 2 mg 03/09/20 10:37 03/09/20 12:33 Loperamide Hcl PO 2 mg PRN PRN Administration Diarrhea Metformin HCl 2,000 mg 03/07/20 18:00 03/13/20 17:16 Glucophage Xr PO 2,000 mg QPM NOLA
[2020-03-14 14:00] VITALS: BP 113/68; PULSE 92; RESP 18; TEMP 36.9; O2SAT 99
[2020-03-14 17:03] LABS: Glucose Point of Care 130 (65-105)
[2020-03-14] MEDS: metFORMIN HCL XR 500 MG TAB.SR.24H 2000 MG PO (17:40)
[2020-03-14 20:14] LABS: Glucose Point of Care 192 (65-105)
[2020-03-14] MEDS: INSULIN DETEMIR 100 UNITS/ML 30 UNITS SUB-Q (20:14)
[2020-03-14] MEDS: traZODone HCL 50 MG TABLET 150 MG PO (20:16)
[2020-03-14 22:00] VITALS: BP 113/68; PULSE 92; RESP 18; TEMP 36.9; O2SAT 99
[2020-03-15 04:35] LABS: Basophils Percent Auto 0.6 % (0.2-1.2); Eosinophils Absolute Auto 0.3 K/mm3 (0-0.3); Eosinophils Percent Auto 3.9 % (0-4.4); Hematocrit 29.1 % (42.0-52.0); Hemoglobin 9.4 g/dL (14.0-18.0); Immature Granulocyte Absolute 0.02 K/mm3 (0.00-0.031); Immature Granulocyte Percent A 0.3 % (0-0.5); Lymphocytes Absolute Auto 1.32 K/mm3 (0.9-3.2); Mean Corpuscular HGB Conc 32.3 g/dl (32-36); Mean Corpuscular Hemoglobin 29.4 pg (26-34); Mean Corpuscular Volume 90.9 fl (80-100); Mean Platelet Volume 10.3 fl (7.4-10.4); Monocytes Absolute Auto 0.5 K/mm3 (0.1-0.6); Monocytes Percent Auto 7.3 % (2.6-8.5); Neutrophils Absolute Auto 4.5 K/mm3 (1.3-6.7); Neutrophils Percent Auto 67.9 % (45.5-73.1); Platelet Count Result 252 k/mm3 (150-375); Red Cell Distribution Width 13.2 % (11.5-14.5); White Blood Count 6.6 K/mm3 (4.5-10.0)
[2020-03-15 04:49] LABS: Anion Gap 6 mmol/L (8-16); Blood Urea Nitrogen 21 mg/dL (9-20); Calcium 8.5 mg/dL (8.4-10.2); Carbon Dioxide 29 mmol/L (22-30); Chloride 101 mmol/L (98-107); Estimated CRCL calculation 88 ml/min; Estimated Glomerular Filt Rate > 60; Glucose 157 mg/dL (75-110); Potassium 4.2 mmol/L (3.4-5.0); Sodium 136 mmol/L (137-145)
[2020-03-15 05:02] VITALS: BP 111/54; PULSE 88; RESP 18; TEMP 36.3; O2SAT 99
[2020-03-15 07:01] LABS: Glucose Point of Care 148 (65-105)
[2020-03-15] MEDS: INSULIN ASPART (*BKC) 100 UNITS/ML 10 UNITS SUB-Q ×2 (07:58→17:31)
[2020-03-15] MEDS: ATORVASTATIN 20 MG TABLET PO (07:59)
[2020-03-15] MEDS: FUROSEMIDE 40 MG TABLET PO (08:00)
[2020-03-15] MEDS: PANTOPRAZOLE 40 MG TABLET PO (08:00)
--- NOTE | 2020-03-15 11:57 | PCDIET ---
Nutrition Follow-Up Complete: Nutrition Diagnosis: Increased protein needs related to below knee amputation as evidenced by 1-1.2 grams/kg of ABW of protein per day Nutrition Goal: Patient to consume 75% or more of meals Goal met. Patient refused some meals due to family bringing in food. Otherwise, most intakes have been 100% on diabetic diet which is appropriate. Last recorded weight is 117.3 kg. Recommend obtaining new weight. Bowel Motility: Last BM on 03/14/20, per nursing flowsheet. Labs Reviewed: Hgb (9.4), Hct (29.1), Glu (148), BUN (21), Na (136) Meds Noted: Proventil, Lasix, Novolog, Levemir, Glucophage, Protonix Additional Notes: Right lower leg incision site. No pressure sores documented. Will continue to monitor with same goal. Nutrition Monitoring and Evaluation: Follow up in 7 days .
[2020-03-15 12:32] LABS: Glucose Point of Care 82 (65-105)
--- NOTE | 2020-03-15 12:39 | WPDNEURORHBP ---
Subjective Date/time seen: 03/15/20 12:39 Interval history: this 59-year-old gentleman is here after having had right BKA his diabetic control is better his walking actually hopping 135 feet with right BKA and is doing remarkably well denies any headache nausea vomiting chest pain shortness of breath fever chills sore throat and a right BKA looks clean and healthy Review of Systems Review of Systems: All systems reviewed & are unremarkable except as noted in HPI and below Functional Status Ambulation Ability Ability to Ambulate 10 Feet: Independent Ability to Ambulate 50 Feet With 2 Turns: Independent Ambulation Assistive Devices: Walker, Wheeled Transfers Ability Ability to Transfer In/Out of Chair: Independent Exam Const: General: comfortable and no acute distress HENMT: General nose exam: Normal nares present Mouth: Yes moist mucous membranes Eyes: General: appearance normal, both eyes and all related structures Neck: Neck: supple and no JVD Resp: Effort & Inspection: normal respiratory effort Auscultation: clear to auscultation bilaterally Cardio: Rate: regular rate Rhythm: regular rhythm GI: GI Palp: Yes Soft to palpation Auscultation: normal bowel sounds Skin: General skin exam: normal color and no rashes or lesions noted Neuro: Other: patient's mental status normal cranial examination motor examination is fairly decent but ever deficit he has is related to his right BKA and underlying peripheral neuropathy Extrem: Other: right BKA site is clean and healthy and in fact the stump looks little bit shrunken no sign of infectious process is noted Psych: Mental Status: mental status grossly normal Objective Data Vital Signs Vital Signs: Vital Signs - 24 hr 03/14/20 14:00 03/14/20 22:00 03/15/20 05:02 Temperature 36.9 C 36.9 C 36.3 C L Pulse Rate 92 92 88 Respiratory Rate 18 18 18 Blood Pressure 113/68 113/68 111/54 L Pulse Oximetry 99 99 99 Intake/Output Intake/Output: Intake & Output 03/12/20 03/13/20 03/14/20 03/15/20 23:59 23:59 23:59 23:59 Intake Total 240 660 720 240 Balance 240 660 720 240 Meds/Results Medications: Active Medications Generic Name Dose Route Start Last Admin Trade Name Freq PRN Reason Stop Dose Admin Hydrocodone Bitart/Acetaminophen 1 tab 03/07/20 17:40 03/10/20 14:56 [place] 5-325 Mg PO 1 tab Q6H PRN Administration Pain (Scale Score 4-6) Albuterol 2 puff 03/07/20 17:40 Proventil Hfa INHALATION Q6H PRN shortness of breath or wheezing Atorvastatin Calcium 20 mg 03/08/20 09:00 03/15/20 07:59 Lipitor PO 20 mg DAILY [place] Administration Dextrose 12.5 gm 03/07/20 17:46 Dextrose 50% Syringe IV PUSH PRN PRN Hypoglycemia Protocol Diltiazem HCl 120 mg 03/08/20 09:00 03/15/20 07:59 Cardizem Cd PO 120 mg DAILY N[place] Administration Furosemide 40 mg 03/08/20 09:00 03/15/20 08:00 Lasix Tablet PO 40 mg DAILY [place] Administration Glucagon 1 mg 03/07/20 17:46 Glucagon For Inj IM PRN PRN Hypoglycemia Protocol Glucose 15 gm 03/07/20 17:46 Glutose 15 PO PRN PRN Hypoglycemia Protocol Dextrose 1,000 mls @ 100 mls/hr 03/07/20 17:46 Dextrose 5% 1,000 Ml IVPB PRN PRN Hypoglycemia Protocol Insulin Aspart 10 units 03/07/20 17:00 03/15/20 07:58 Novolog SUB-Q 04/07/20 17:01 10 units TIDWM [place] Administration Insulin Detemir 30 units 03/07/20 21:00 03/14/20 20:14 Levemir SUB-Q 04/06/20 21:01 30 units HS [place] Administration Loperamide HCl 2 mg 03/09/20 10:37 03/09/20 12:33 Loperamide Hcl PO 2 mg PRN PRN Administration Diarrhea Metformin HCl 2,000 mg 03/07/20 18:00 03/14/20 17:40 Glucophage Xr PO 2,000 mg QPM [place] Administration Non-Formulary Medication 1 mg 03/14/20 09:00 Semaglutide [Ozempic] SUB-Q 04/13/20 09:01 WEEKLY NOL[place] Pantoprazole Sodium 40 mg 03/08/20 09:00 03/15
[2020-03-15 14:00] VITALS: BP 129/71; PULSE 90; RESP 20; TEMP 36.2; O2SAT 99
[2020-03-15] MEDS: metFORMIN HCL XR 500 MG TAB.SR.24H 2000 MG PO (17:28)
[2020-03-15 17:33] LABS: Glucose Point of Care 287 (65-105)
[2020-03-15] MEDS: INSULIN DETEMIR 100 UNITS/ML 30 UNITS SUB-Q (20:21)
[2020-03-15] MEDS: traZODone HCL 50 MG TABLET 150 MG PO (20:22)
[2020-03-15 20:35] VITALS: PULSE 90; RESP 20; O2SAT 99
[2020-03-15 20:45] LABS: Glucose Point of Care 158 (65-105)
[2020-03-15 22:00] VITALS: BP 118/76; PULSE 97; RESP 20; TEMP 36.4; O2SAT 99
[2020-03-16 05:53] VITALS: BP 134/53; PULSE 85; RESP 20; TEMP 36.3; O2SAT 99
[2020-03-16 06:42] LABS: Glucose Point of Care 144 (65-105)
[2020-03-16] MEDS: INSULIN ASPART (*BKC) 100 UNITS/ML 10 UNITS SUB-Q (07:50)
[2020-03-16 08:03] VITALS: PULSE 84; RESP 18; O2SAT 99
[2020-03-16] MEDS: ATORVASTATIN 20 MG TABLET PO (08:21)
[2020-03-16] MEDS: PANTOPRAZOLE 40 MG TABLET PO (08:22)
[2020-03-16] MEDS: FUROSEMIDE 40 MG TABLET PO (08:22)
--- NOTE | 2020-03-16 10:06 | WPDNEURORHBP ---
Subjective Date/time seen: 03/16/20 10:06 Interval history: This 59-year-old diabetic gentleman has been here for the rehabilitation after having had a right BKA. The details are available on my previous notes and my history and physical examination he has done remarkably well the consideration of the fact that he is not requiring significant amount of the pain medication he denies any headache nausea vomiting chest pain shortness of breath fever chills sore throat he has all his medications at home including the pain medication and the insulin and also the necessary medical supplies inject himself in the insulin Review of Systems Review of Systems: All systems reviewed & are unremarkable except as noted in HPI and below Functional Status Ambulation Ability Ability to Ambulate 10 Feet: Independent Ability to Ambulate 50 Feet With 2 Turns: Independent Ambulation Assistive Devices: Walker, Wheeled Transfers Ability Ability to Transfer In/Out of Chair: Independent Exam Const: General: comfortable and no acute distress HENMT: General nose exam: Normal nares present Mouth: Yes moist mucous membranes Eyes: General: appearance normal, both eyes and all related structures Neck: Neck: supple and no JVD Resp: Effort & Inspection: normal respiratory effort Auscultation: clear to auscultation bilaterally Cardio: Rate: regular rate Rhythm: regular rhythm GI: GI Palp: Yes Soft to palpation Auscultation: normal bowel sounds Skin: General skin exam: normal color and no rashes or lesions noted Neuro: Other: patient is awake and alert well oriented with normal speech and language function normal cranial examination and significantly improved strength in his lower extremities and the right BKA is clean Extrem: Other: right BKA is clean and healthy Psych: Mental Status: mental status grossly normal Objective Data Vital Signs Vital Signs: Vital Signs - 24 hr 03/15/20 14:00 03/15/20 20:35 03/15/20 22:00 Temperature 36.2 C L 36.4 C L Pulse Rate 90 90 97 Respiratory Rate 20 20 20 Blood Pressure 129/71 118/76 Pulse Oximetry 99 99 99 03/16/20 05:53 03/16/20 08:03 Temperature 36.3 C L Pulse Rate 85 84 Respiratory Rate 20 18 Blood Pressure 134/53 L Pulse Oximetry 99 99 Intake/Output Intake/Output: Intake & Output 03/13/20 03/14/20 03/15/20 03/16/20 23:59 23:59 23:59 23:59 Intake Total 660 720 720 240 Balance 660 720 720 240 Meds/Results Medications: Active Medications Generic Name Dose Route Start Last Admin Trade Name Freq PRN Reason Stop Dose Admin Hydrocodone Bitart/Acetaminophen 1 tab 03/07/20 17:40 03/10/20 14:56 [place] 5-325 Mg PO 1 tab Q6H PRN Administration Pain (Scale Score 4-6) Albuterol 2 puff 03/07/20 17:40 Proventil Hfa INHALATION Q6H PRN shortness of breath or wheezing Atorvastatin Calcium 20 mg 03/08/20 09:00 03/16/20 08:21 Lipitor PO 20 mg DAILY N[place] Administration Dextrose 12.5 gm 03/07/20 17:46 Dextrose 50% Syringe IV PUSH PRN PRN Hypoglycemia Protocol Diltiazem HCl 120 mg 03/08/20 09:00 03/16/20 08:21 Cardizem Cd PO 120 mg DAILY [place] Administration Furosemide 40 mg 03/08/20 09:00 03/16/20 08:22 Lasix Tablet PO 40 mg DAILY [place] Administration Glucagon 1 mg 03/07/20 17:46 Glucagon For Inj IM PRN PRN Hypoglycemia Protocol Glucose 15 gm 03/07/20 17:46 Glutose 15 PO PRN PRN Hypoglycemia Protocol Dextrose 1,000 mls @ 100 mls/hr 03/07/20 17:46 Dextrose 5% 1,000 Ml IVPB PRN PRN Hypoglycemia Protocol Insulin Aspart 10 units 03/07/20 17:00 03/16/20 07:50 Novolog SUB-Q 04/07/20 17:01 10 units TIDWM [place] Administration Insulin Detemir 30 units 03/07/20 21:00 03/15/20 20:21 Levemir SUB-Q 04/06/20 21:01 30 units HS NOLA Administration Loperamide HCl 2 mg 03/09/20 10:37 03/09/20 12:33 Loperamide Hcl PO 2 mg
--- NOTE | 2020-03-17 12:32 | PM.DS ---
DS: Admitting Diagnosis Admitting Diagnosis Admitting Diagnosis: R BKA DS: Discharge Diagnosis Discharge Diagnosis (1) Hypomagnesemia: Code(s): E83.42 - Hypomagnesemia Status: Acute (2) S/P BKA (below knee amputation): Qualifiers: Laterality: right Qualified Code(s): Z89.511 - Acquired absence of right leg below knee Code(s): Z89.519 - Acquired absence of unspecified leg below knee Status: Acute (3) History of foot surgery: Code(s): Z98.890 - Other specified postprocedural states Status: Acute (4) Osteomyelitis: Qualifiers: Osteomyelitis type: acute hematogenous Osteomyelitis location: foot Laterality: right Qualified Code(s): M86.071 - Acute hematogenous osteomyelitis, right ankle and foot Code(s): M86.9 - Osteomyelitis, unspecified Status: Acute (5) HTN (hypertension), benign: Code(s): I10 - Essential (primary) hypertension Status: Acute (6) Hyperlipidemia: Code(s): E78.5 - Hyperlipidemia, unspecified Status: Chronic (7) Anemia: Qualifiers: Anemia type: unspecified type Qualified Code(s): D64.9 - Anemia, unspecified Code(s): D64.9 - Anemia, unspecified Status: Acute (8) Diabetic foot ulcer associated with diabetes mellitus due to underlying condition: Qualifiers: Diabetic foot ulcer location: midfoot Laterality: right Non-pressure ulcer stage: with muscle involvement without evidence of necrosis Qualified Code(s): E08.621 - Diabetes mellitus due to underlying condition with foot ulcer; L97.415 - Non-pressure chronic ulcer of right heel and midfoot with muscle involvement without evidence of necrosis Code(s): E08.621 - Diabetes mellitus due to underlying condition with foot ulcer; L97.509 - Non-pressure chronic ulcer of other part of unspecified foot with unspecified severity Status: Acute (9) Diabetes: Qualifiers: Diabetes mellitus type: type 2 Diabetes mellitus termination clerk insulin use: with termination clerk use Diabetes mellitus complication status: with neurologic complications Diabetes mellitus complication detail: with other neurological complication Qualified Code(s): E11.49 - Type 2 diabetes mellitus with other diabetic neurological complication; Z79.4 - [facility] (current) use of insulin Code(s): E11.9 - Type 2 diabetes mellitus without complications Status: Acute (10) Hyponatremia: Code(s): E87.1 - Hypo-osmolality and hyponatremia Status: Acute (11) Anemia: Code(s): D64.9 - Anemia, unspecified Status: Acute (12) Diabetes mellitus with complication: Code(s): E11.8 - Type 2 diabetes mellitus with unspecified complications Status: Acute (13) Degenerative arthritis of cervical spine: Code(s): M47.812 - Spondylosis without myelopathy or radiculopathy, cervical region Status: Acute (14) Charcot foot due to diabetes mellitus: Code(s): E11.610 - Type 2 diabetes mellitus with diabetic neuropathic arthropathy Status: Acute (15) Morbid (severe) obesity due to excess calories: Code(s): E66.01 - Morbid (severe) obesity due to excess calories Status: Acute (16) Sleep apnea, unspecified: Qualifiers: Sleep apnea type: obstructive Qualified Code(s): G47.33 - Obstructive sleep apnea (adult) (pediatric) Code(s): G47.30 - Sleep apnea, unspecified Status: Acute DS: Summary Hospital Course Reason for hospitalization: this 59-year-old 0 diabetic obese gentleman was admitted primarily to us with the right [id number]-cyyf amputation which has resulted from the previous multiple issues as mentioned above in the problem list which in fact have resolved once he came to us including the metabolic issues and also the issues of the osteomyelitis of wound infections and the foot deformities mentioned in the problem list the patient's primary diagnosis to our floor
== END 2020-03-16 12:30 | disposition home health service (06) | DRG 560 ==
PROVIDERS: Admitting Provider Psychiatry & Neurology Neurology; PCP Family Medicine; Visit Provider Psychiatry & Neurology Neurology
DX: Z47.81 Encounter for orthopedic aftercare following surgical amputation (principal); E87.1 Hypo-osmolality and hyponatremia; Z68.41 Body mass index [BMI] 40.0-44.9, adult; Z89.511 Acquired absence of right leg below knee; D64.9 Anemia, unspecified; E66.01 Morbid (severe) obesity due to excess calories; E11.42 Type 2 diabetes mellitus with diabetic polyneuropathy; E11.610 Type 2 diabetes mellitus with diabetic neuropathic arthropathy; E11.319 Type 2 diabetes mellitus with unspecified diabetic retinopathy without macular edema; E11.65 Type 2 diabetes mellitus with hyperglycemia; E78.5 Hyperlipidemia, unspecified; E83.42 Hypomagnesemia; G47.33 Obstructive sleep apnea (adult) (pediatric); I50.9 Heart failure, unspecified; I11.0 Hypertensive heart disease with heart failure; M47.812 Spondylosis without myelopathy or radiculopathy, cervical region; M17.10 Unilateral primary osteoarthritis, unspecified knee; Z87.891 Personal history of nicotine dependence; Z79.4 Long term (current) use of insulin
CPT/HCPCS: 36415; 80048; 83735; 85025; 97110; 97116; 97162; 97165; 97530; 97535; 97542; A9270; J1815

== ENCOUNTER 2020-04-11 20:33 | Emergency (ER) | payer OTHER, SELFPAY ==
--- NOTE | ~2020-04-11 | XR_ITS ---
EXAMINATION: XR tibia fibula RT 2V INDICATION: Pain after fall TECHNIQUE: Two views of the right tibia and fibula are obtained. COMPARISON: 1021 hours FINDINGS: There are changes of eyput-wlp-asel amputation. There is soft tissue swelling at the distal aspect of the stump. No acute osseous abnormality is identified. Alignment at the knee is normal. Th ere is mild osteoarthritis of the knee. IMPRESSION: 1. Changes of ejxaq-jrq-gggy amputation with soft tissue swelling but no acute osseous abnormality id entified. Reviewed, dictated and finalized at location A. IMPRESSION: 1. Changes of xixbj-jub-qebm amputation with soft tissue swelling but no acute osseous abnormality identified.
[2020-04-11 20:36] VITALS: BP 109/60; PULSE 116; RESP 16; O2SAT 98
--- NOTE | 2020-04-11 21:19 | ED.GENADULT ---
HPI - General Adult General Chief complaint: Fall Stated complaint: fall on new leg amputation Time Seen by Provider: 04/11/20 20:46 History of Present Illness HPI narrative: Patient is a 59-year-old male who presents the ER due to concern regarding injury to his right BKA stump. Patient reports that he was walking at home in his nonskid socks when he stepped on a writing pen that his cat was playing with on the floor. It caused him to slip and fall driving his new BKA stump directly into the ground. Had sudden onset pain. Reports he has increased swelling to the area. He has not noticed any new bleeding or weeping to the dressing that was applied earlier today when he was in the orthopedic clinic being reevaluated. He has had no additional complications since his surgery. He did not strike his head or lose consciousness. Related Data Home Medications Medication Instructions Recorded Confirmed insulin detemir U-100 100 unit/mL 30 unit SUBCUT HS ml 08/02/19 03/27/20 (3 mL) subcutaneous pen trazodone 150 mg PO HS 02/29/20 03/27/20 hydrocodone-acetaminophen [[place]] 1 tablet PO Q6H PRN 03/07/20 03/27/20 Allergies Allergy/AdvReac Type Severity Reaction Status Date / Time amoxicillin AdvReac Unknown Nausea Verified 04/11/20 10:24 Review of Systems Musculoskeletal: Comments: Right BKA stump pain and swelling Neurologic: Denies syncope, Denies focal weakness and Denies numbness PMFSH Social History Social History Social History: The patient lives with his and she is a durable power mergers and acquisitions attorney for healthcare. The patient desires to be a full code. He is a former smoker. 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 He has 1 daughter who is healthy. Primary care provider: Dr. Elias Montalvo Code status: Full code Advanced directives: None Smoking packs per day: 2.5 Smoking cigarettes per day: 50.0 Years smoked: 26 Smoking pack-years: 65.00 Smoking status: Former smoker Tobacco type: cigarettes Second hand tobacco smoke exposure: No Smoking end date: 12/05/97 Additional smoking assessment comments: QUIT 1997 Alcohol intake: never Drinks per week: 1 Substance use: never Substance use type: does not use Additional living arrangements comments: He lives with his of 26 years. He has 1 adult daughter who is healthy. 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 Gender identity (if verbalized by the patient): Male Spiritual care concerns: No Exam Narrative: Exam Narrative: GENERAL: Well-appearing, well-nourished, and in no acute distress. HEAD: Normocephalic, atraumatic. EXTREMITIES: Right lower extremity with dressed BKA stump. Dressing removed she feels well-healing wound that has 1 area that has slight bleeding due to having picked a scab. No evidence of infection. Mild tenderness posteriorly over the muscle with proximal calf. No contusion or abrasion. SKIN: Warm, dry, no rash. NEURO: No focal deficits. Alert and oriented x3. PSYCH: Normal mood and affect. Course Vital Signs Vital signs: Vital Signs Pulse Rate 116 H 04/11/20 20:36 Respiratory Rate 16 04/11/20 20:36 Blood Pressure 109/60 04/11/20 20:36 Pulse Oximetry 98 04/11/20 20:36 Pulse Rate 116 H 04/11/20 20:36 Respiratory Rate 16 04/11/20 20:36 Blood Pressure 109/60 04/11/20 20:36 Pulse Oximetry 98 04/11/20 20:36 Medical Decision Making Vital Signs Vital Signs: Vital Signs Pulse Rate 116 H 04/11/20 20:36 Respiratory Rate 16 04/11/20 20:36 Blood Pressure 109/60 04/11/20 20:36 Pulse Oximetry 98 04/11/20 20:36 Pulse Rate 116 H 04/11/20 20:36 Respiratory Rate 16 04/11/20 20:36 Blood Pressure 109/60 04/11/20 20:36 Pulse Oximetry 98 04/11/20 20:36 Imaging Data Radiologist's impression: ITS Impressions Tibia/Fibula X-Ray 04/11
[2020-04-11 23:02] VITALS: BP 106/73; PULSE 112; RESP 20; O2SAT 97
== END 2020-04-11 23:03 | disposition home or self-care (01) ==
PROVIDERS: Emergency Provider Emergency Medicine; PCP Family Medicine
DX: M25.561 Pain in right knee (principal); F17.210 Nicotine dependence, cigarettes, uncomplicated; E11.9 Type 2 diabetes mellitus without complications; Z79.4 Long term (current) use of insulin; Z89.511 Acquired absence of right leg below knee
CPT/HCPCS: 73590; 99283

== ENCOUNTER 2020-05-12 11:18 | Outpatient (CLI) | payer OTHER, SELFPAY ==
--- NOTE | 2020-06-09 11:01 | WPDHOMESLEEP ---
Sleep Study - Home Unattended Date of Study: 05/12/20 Ordering Provider: Enzo El MD Interpreting Physician: Milagro Sun MD Home Sleep Study Type: Apnea Link Air Height: 1.7 m Weight: 114.305 kg Body Mass Index: 39.4 Neck Circumference (inches): 16.25 Ary: 15 Reason for Sleep Study MARIANO; used CPAP in the past; worsening quality of sleep with hypersomnolence Sleep History Neil Haines is a 59-year-old man with a history of obstructive sleep apnea diagnosed 10 years ago, was on CPAP in the past. He has difficulty falling asleep. Trazodone helps somewhat. He has had difficulties for 10 years. He wakes up during the night, has excessive daytime sleepiness and a difficult time waking in the morning. This always difficult form to fall asleep. He occasionally snores but when he does it is constantly loud enough that others complain about it. He occasionally awakens at night with heartburn, belching or coughing. He occasionally awakens from sleep feeling short of breath. He constantly has trouble sleeping when he has a cold. Rarely wakes up gasping for breath at night. He rarely gasps for breath at night. Frequently has breathing problems at night reported to him by others. He constantly sweats excessively at night. He rarely notices his heart pounding or beating irregularly at night. He frequently falls asleep during the day, occasionally involuntarily, never while driving or during physical effort. Does not have loss of muscle tone with strong emotion. He occasionally has daytime difficulties due to excessive sleepiness. he never feels paralyzed on waking or falling asleep. He constantly has vivid dreamlike scenes upon awakening or falling asleep. He is not afraid to go to sleep. He does not have nightmares. Frequently remembers his dreams. Constantly has racing thoughts. He never feels sad or depressed. He constantly has anxiety. He does not have muscular tension. He occasionally notices parts of his body jerking. Constantly kicks at night. Occasionally has crawling and aching feelings in his legs and leg pain during the night. He rarely has morning jaw pain. Does not grind his teeth during sleep. He is not bothered by pain during the day. He occasionally is awakened by pain at night and occasionally wakes up feeling stiff in the morning. He constantly wakes up with sore or achy muscles. He constantly wakes up with pain in the neck and spine. He has fatigue, memory problems, concentration problems, frequently has morning headaches, always has sexual problems. He has lost 60 lb in the last year. Normal bedtime is 11:00 p.m. falling asleep within 20 minutes waking approximately 6 times at night. While awake, he goes to urinate and tries to return to sleep. He stays awake between 5 and 30 minutes when waking at night. He wakes in the morning at 6:00 a.m.. On weekends he stays awake later, goes to bed around 1:00 a.m. and wakes at 6:00 a.m.. He does take naps. A short nap is not refreshing. He is usually drowsy in the morning for 2 hours or longer. Habits: Smoked tobacco 21 years ago. He does drink caffeine. He does not drink alcohol or use recreational drugs. [facility] Past Medical History Medical History (Updated 06/09/20 @ 11:05 by Milagro Sun MD) Anemia Charcot foot due to diabetes mellitus Charcot's joint arthropathy in type 2 diabetes mellitus Degenerative arthritis of cervical spine On diclofenac Diabetes Diabetic autonomic neuropathy associated with type 2 diabetes mellitus Diabetic foot ulcer associated with diabetes mellitus due to underlying condition Diabetic retinopathy associated with type 2 diabetes mellitus Foot fracture, left Hyperlipidemia Hyponatremia Knee osteoarthritis Left ventricular hypertrophy Morbid obesity with BMI of 45.0-49.9, adult Obstructive sleep apnea Sleep study June 2015 recommended CPAP of 14 Osteomyelitis Other and unspecified hyperlipidemia Vision abnormalities
[2020-06-09 11:20] VITALS: BMI 39.4
== END 2020-05-12 11:19 | disposition home or self-care (01) ==
LOC: ANHCSM 11:18
PROVIDERS: PCP Family Medicine; Visit Provider Internal Medicine Critical Care Medicine
DX: G47.33 Obstructive sleep apnea (adult) (pediatric) (principal); I10 Essential (primary) hypertension; E11.40 Type 2 diabetes mellitus with diabetic neuropathy, unspecified; E78.5 Hyperlipidemia, unspecified; E87.1 Hypo-osmolality and hyponatremia
CPT/HCPCS: 95806

== ENCOUNTER 2020-06-27 13:34 | Outpatient (CLI) | payer OTHER, SELFPAY ==
[2020-06-27 14:56] LABS: Alanine Aminotransferase 13 U/L (4-50); Albumin Level 4.2 g/dL (3.5-5.1); Alkaline Phosphatase 83 U/L (38-126); Anion Gap 10 mmol/L (8-16); Aspartate Amino Transferase 19 U/L (17-59); Bilirubin,Total 0.4 mg/dL (0.2-1.3); Blood Urea Nitrogen 44 mg/dL (9-20); Calcium 9.1 mg/dL (8.4-10.2); Carbon Dioxide 26 mmol/L (22-30); Chloride 101 mmol/L (98-107); Cholesterol 224 mg/dL (0-200); Estimated Glomerular Filt Rate 39; Glucose 126 mg/dL (75-110); HDL Direct 30 mg/dL; Potassium 5.5 mmol/L (3.4-5.0); Sodium 137 mmol/L (137-145); Triglycerides 440 mg/dL (<150)
[2020-06-27 15:04] LABS: Hemoglobin A1C 5.4 % (<5.7)
[2020-06-27 15:07] LABS: LDL Cholesterol Direct 84 mg/dL
== END 2020-06-27 13:35 | disposition home or self-care (01) ==
LOC: ANHLAB 13:35
PROVIDERS: PCP Family Medicine; Visit Provider Family Medicine
DX: E11.9 Type 2 diabetes mellitus without complications (principal)
CPT/HCPCS: 36415; 80053; 80061; 83036

== ENCOUNTER 2020-07-22 11:30 | Outpatient (CLI) | payer OTHER, SELFPAY ==
[2020-07-22 11:56] LABS: Anion Gap 7 mmol/L (8-16); Blood Urea Nitrogen 38 mg/dL (9-20); Calcium 9.3 mg/dL (8.4-10.2); Carbon Dioxide 27 mmol/L (22-30); Chloride 104 mmol/L (98-107); Estimated Glomerular Filt Rate 48; Glucose 148 mg/dL (75-110); Potassium 5.4 mmol/L (3.4-5.0); Sodium 138 mmol/L (137-145)
== END 2020-07-22 11:31 | disposition home or self-care (01) ==
LOC: ANHLAB 11:32
PROVIDERS: PCP Family Medicine; Visit Provider Family Medicine
DX: E87.5 Hyperkalemia (principal); N17.9 Acute kidney failure, unspecified
CPT/HCPCS: 36415; 80048

== ENCOUNTER 2020-07-24 13:30 | Outpatient (RCR) | payer OTHER, SELFPAY ==
--- NOTE | 2020-06-21 09:04 | PTOPEVAL ---
PHYSICAL THERAPY EVALUATION AND PLAN OF CARE 06-19-2020 Thank you for referring Neil Haines to [facility].? He is scheduled to be seen for therapy? 2 x/week for 5 weeks. Please review, sign, date and return this plan of care J LUIS. I agree with and certify that the following plan of care is medically necessary. Referring Physician Date Attending Provider: Dr. Elias Guevara PT Outpatient Evaluation Document 06/21/20 08:05 GERMAINE (Rec: 06/21/20 09:04 GERMAINE [id number]) Outpatient Past Medical History Past Medical History Source of Past Medical History Patient Neurological History Hx Migraine Yes: have not had lately Hx Other Neurological Disorders Yes: neuropathy in B feet Cardiovascular History Hx Hypercholesterolemia Yes: meds Hx Hypertension Yes: resolved--had with kidney issues Hx Other Cardiac Disorders Yes: left ventricular hypertrophy Respiratory History Hx Sleep Apnea Yes: recently tested; Gastrointestinal History Hx Gastroesophageal Reflux Disease Yes Genitourinary History Hx Renal Disease Yes: resolved- had kidney shut down /dehydration Musculoskeletal History Hx Amputation Yes: 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; Hx Degenerative Disk Disease Yes: lumbar pain; neck pain- R arm numb Hx Osteomyelitis Yes: RT FOOT Hematological History Hx Anemia Yes: acute blood loss Endocrine History Hx Diabetes Yes: med control HEENT History Hx Tonsillectomy Yes Integumentary History Hx Skin Disorders No Significant History Reproductive History Hx Reproductive Disorders No Significant History Psychosocial History Hx Psychiatric Disorders No Significant History Pain History Has Past Pain Affected Your Daily Life Yes History of Long-Term Prescription Pain Yes: [place] for foot pain (PRN) Medication Use (Opiates) Anesthesia History Hx Anesthesia Reactions No Significant History Other History Hx Other Medical Conditions Yes: morbid obesity, recent wt loss of 60# Evaluation Information Problem Diagnosis s/p R BKA due to osteomyelitis Onset Mar 02, 2020 Subjective Information after BKA, took time for Query Text:As Reported By Patient/ incision to heal; received Family prosthesis from [employer] Manager about one week ago; wearing prosthesis about 1 hour at time, 2-3 x/day; Previous Treatments Previous Treatments For This Problem no
--- NOTE | 2020-06-23 12:48 | PCPTNOTE ---
Patient called & cancelled scheduled appointment this date due to stomach issues.
--- NOTE | 2020-07-03 15:21 | PCPTNOTE ---
Patient did not show up for scheduled appointment this date; called and left voicemail as reminder for next appointment Jul 05 @12:30.
--- NOTE | 2020-07-05 12:23 | PCPTNOTE ---
Patient cancelled this date due to ride issue.
--- NOTE | 2020-07-19 12:44 | PCPTNOTE ---
Patient called & cancelled scheduled appointment this date due to being ill.
--- NOTE | 2020-07-24 14:09 | PTOPEVAL ---
PHYSICAL THERAPY DISCHARGE 07-24-20 Refer to the clinical summary below for a comparison to the initial evaluation. Thank you for referring Neil Haines to [facility].? Please review, sign, date and return this discharge J LUIS. I agree with and certify that the following plan of care is medically necessary. Referring Physician Date Attending Provider: Elias Montalvo MD *PT Outpatient Discharge Document 07/24/20 13:30 GERMAINE (Rec: 07/24/20 14:09 GERMAINE [id number]) Subjective Information Yayo reports: have not driven Query Text:As Reported By Patient/ yet on the main roads, but Family have been practicing in parking lots; no falls; have been walking outside on grass and in the stores; wearing prosthesis 7 hours without any problems; skin is doing OK; no problems in the house or out shopping; feels like ready to drive and can return to work; no longer using cane, have in truck if need, but not used for the past 2 weeks; have been bowling and working in yard--picking up sticks; feels like ready to be done with therapy. Pain Assessment Timing of Pain Assessment Timing of Pain Assessment Assessment Pain Scale Pain Scale Used Numeric (1 - 10) Self Report Pain Assessment Right Leg(s) Reported Pain Level 2 Pain Description Pressure Pain Frequency Chronic Other Pain Description not really pain in leg, just pressure on R leg Pain Score Pain Score 2: Self Report Interventions Used Interventions Used By Clinicians Exercise Lower Extremity Muscle Strength Testing General Lower Extremity Strength Gross Lower Extremity Strength standing R hip exercises 3# x 25 reps: hip abduction, hip extension, knee flexion; single leg standing R x 6 seconds; B UE lift floor/waist 40# x 3 reps; Transfer Assessment Floor Transfer Assessment Ambulation Assistive Devices None Stand to Floor Transfer Ability Independent Floor to Stand Transfer Ability Independent Floor Transfer Ability Independent Floor Transfer Comments use of UE on mat for assist with transfer Balance Assessment Tinetti Balance As
== END 2020-07-25 10:18 | disposition home or self-care (01) ==
LOC: ANHPT 13:30
PROVIDERS: PCP Family Medicine; Visit Provider Family Medicine
DX: Z47.81 Encounter for orthopedic aftercare following surgical amputation (principal); Z89.511 Acquired absence of right leg below knee
CPT/HCPCS: 97110; 97112; 97116; 97161; 97761

== ENCOUNTER 2020-08-29 08:41 | Outpatient (CLI) | payer OTHER, SELFPAY ==
[2020-08-29 09:09] LABS: Anion Gap 10 mmol/L (8-16); Blood Urea Nitrogen 22 mg/dL (9-20); Carbon Dioxide 25 mmol/L (22-30); Chloride 105 mmol/L (98-107); Estimated Glomerular Filt Rate 57; Glucose 188 mg/dL (75-110); Potassium 4.9 mmol/L (3.4-5.0); Sodium 140 mmol/L (137-145)
== END 2020-08-29 08:42 | disposition home or self-care (01) ==
PROVIDERS: PCP Family Medicine; Visit Provider Family Medicine
DX: E87.5 Hyperkalemia (principal)
CPT/HCPCS: 36415; 80048

== ENCOUNTER 2020-09-05 14:31 | Outpatient (CLI) | payer OTHER, SELFPAY ==
--- NOTE | ~2020-09-05 | XR_ITS ---
EXAMINATION: XR shoulder LT min 2V INDICATION: Low back pain TECHNIQUE: Four views of the left shoulder are submitted. COMPARISON: None FINDINGS: Normal alignment. No fracture. There is moderate osteoarthritis of the acromioclavicular hannah int. Soft tissues are unremarkable. IMPRESSION: 1. No acute osseous abnormality. Reviewed, dictated and finalized at location A. BULANCE DRIVER PARAMEDIC
--- NOTE | ~2020-09-05 | XR_ITS ---
EXAMINATION: XR shoulder RT min 2V INDICATION: Right shoulder pain TECHNIQUE: Four views of the right shoulder are submitted. COMPARISON: None FINDINGS: Normal alignment. No fracture. There is moderate osteoarthritis of the acromioclavicular hannah int. Soft tissues are unremarkable. IMPRESSION: 1. No acute osseous abnormality. Reviewed, dictated and finalized at location A. CTURAL BIOLOGIST
--- NOTE | ~2020-09-05 | XR_ITS ---
EXAMINATION: XR lumbar spine 2-3V DATE: 09/05/2020 15:08 INDICATION: Low back pain TECHNIQUE: Anteroposterior and lateral views of the lumbar spine, and cone-down lateral view of the l umbosacral junction were obtained. COMPARISON: 08/26/2013 FINDINGS: There are chronic compression fractures of L2 and L3. There is severe loss of intervertebra l disc space height at L1-2. Bone alignment is maintained. No acute fracture is identified. There is mild osteoarthritis of the hips. A moderate volume of colonic stool is noted. IMPRESSION: 1. Chronic compression fractures of L2 and L3 and severe spondylosis at L1-2 without acute findings. Reviewed, dictated and finalized at location A. SH REPAIR WORKER IMPRESSION: 1. Chronic compression fractures of L2 and L3 and severe spondylosis at L1-2 wi thout acute findings.
== END 2020-09-05 14:32 | disposition home or self-care (01) ==
LOC: ANHIMG 14:36
PROVIDERS: PCP Family Medicine; Visit Provider Physician Assistant Medical
DX: M47.816 Spondylosis without myelopathy or radiculopathy, lumbar region (principal); S32.039A Unspecified fracture of third lumbar vertebra, initial encounter for closed fracture; M25.512 Pain in left shoulder; M25.511 Pain in right shoulder; S32.021A Stable burst fracture of second lumbar vertebra, initial encounter for closed fracture
CPT/HCPCS: 72100; 73030

== ENCOUNTER 2021-01-31 18:48 | Outpatient (CLI) | payer OTHER, SELFPAY ==
--- NOTE | ~2021-01-31 | XR_ITS ---
XR shoulder RT min 2V, XR humerus RT 01/31/2021 19:08 Indication: Right shoulder pain Procedure: 5 views right shoulder and 2 views right humerus Comparison: No prior studies for comparison. Findings: There is mild polyarticular osteoarthritis of the right shoulder. No fracture, subluxation or dislocation. No significant soft tissue abnormality. Normal mineralization. There is a punctate fo reign body in the lateral soft tissues at the proximal humeral level. Impression: 1: Mild polyarticular osteoarthritis of the shoulder. 2: Curvilinear 3 mm foreign body lateral soft tissues at the proximal humeral level. Reviewed, dictated and finalized at location A. Impression: 1: Mild polyarticular osteoarthritis of the shoulder. 2: Curvilinear 3 mm foreign body lateral soft tissues at the proximal humeral l evel. Impression: 1: Mild polyarticular osteoarthritis of the shoulder. 2: Curvilinear 3 mm foreign body lateral soft tissues at the proximal humeral l evel.
== END 2021-01-31 18:49 | disposition home or self-care (01) ==
LOC: ANHIMG 18:51
PROVIDERS: PCP Family Medicine; Visit Provider Physician Assistant Medical
DX: M19.011 Primary osteoarthritis, right shoulder (principal); M79.5 Residual foreign body in soft tissue
CPT/HCPCS: 73030; 73060

== ENCOUNTER 2021-03-15 12:29 | Outpatient (CLI) | payer OTHER, SELFPAY ==
--- NOTE | ~2021-03-15 | DEXA_ITS ---
Bone Density Report Name: Neil Haines Age: 60 Sex: Male Ethnicity: White Date of : 1960 Indication: height loss; Referring Provider: Khurram Eldridge Study: Bone densitometry was performed. Exam Date: March 15, 2021 Accession number: [id number] Bone Density: Region BMD T-score Z-score Classification AP Spine (L3, L4) 0.998 -1.1 -0.6 Osteopenia Femoral Neck (Left) 0.825 -0.8 0.1 Normal Total Hip (Left) 1.095 0.4 0.8 Normal Total Hip Bilateral Avg 1.032 0.0 0.4 Normal Femoral Neck (Right) 0.636 -2.2 -1.2 Osteopenia Total Hip (Right) 0.968 -0.4 0.0 Normal World Health Organization criteria for BMD impression classify patients as: Normal (T-score at or above -1.0), Osteopenia (T-score between -1.0 and -2.5), or Osteoporosis (T-score at or below -2.5). 10-year Fracture Risk(1): Major Osteoporotic Fracture 6.2% Hip Fracture 1.1% Reported Risk Factors: [place] (), Neck BMD=0.636, BMI=46.3 (1) FRAX(R) Version 3.08. Fracture probability calculated for an untreated patient. Fracture probability may be lower if the patient has received treatment. Clinical Information Provided by Patient: Patient maximum height was 67 No regular weight bearing exercise Does not regularly consume dairy products Drinks caffeinated beverages Impression: The patient has low bone mass, based on the Right Femoral Neck T-score. The patient has an estimated ten-year risk of hip fracture of 1.1% and an estimated ten-year risk of major fracture of 6.2%, based on the WHO FRAX algorithm. Discussion: BONE DENSITY IS LOW AT ONE OR MORE SKELETAL SITES. This patient's lowest T-score is low at one or more skeletal sites. It meets the World Health Organization's (WHO) criteria for ?low bone mass? (T-score between -1.0 and -2.5). The patient's 10-year risk of fracture as calculated by FRAX is less than the threshold where pharmacological therapy is recommended by the National Osteoporosis Foundation (NOF). However, all treatment decisions require clinical judgment and consideration of individual patient factors, including patient preferences, comorbidities, previous drug use, risk factors not captured in the FRAX model (e.g., frailty, falls, vitamin D deficiency, increased bone turnover, interval significant decline in bone density) and possible under or overestimation of fracture risk by FRAX. The patient should follow a healthful lifestyle (good nutrition with adequate calcium and vitamin D, and appropriate weight-bearing exercise). Follow-Up: Consider repeating this study in 2 to 3 years to reassess this patient's status, or sooner if there is some new clinical indication. Reported by: DEVON on 03/15/2021 12:50:00 PM. Reviewed, dictated and finalized at location A.
== END 2021-03-15 12:30 | disposition home or self-care (01) ==
LOC: ANHIMG 12:32
PROVIDERS: PCP Family Medicine; Visit Provider Physician Assistant Medical
DX: M48.50XA Collapsed vertebra, not elsewhere classified, site unspecified, initial encounter for fracture (principal); M85.88 Other specified disorders of bone density and structure, other site; M85.851 Other specified disorders of bone density and structure, right thigh
CPT/HCPCS: 77080

== ENCOUNTER 2021-06-17 22:16 | Emergency (ER) | payer OTHER, SELFPAY ==
--- NOTE | ~2021-06-17 | XR_ITS ---
EXAMINATION: XR humerus LT DATE: 06/18/2021 00:48 INDICATION: Left humeral pain radiating into the elbow. TECHNIQUE: Internal and externally rotated views of the left humerus were obtained. COMPARISON: Left shoulder radiographs dated 09/05/2020 FINDINGS: Alignment is normal. No fracture. Osteoarthritis, mild at the left glenohumeral and moderate at the a cromioclavicular joints. Soft tissues are unremarkable. Visualized portions of the left lung are roberto r. IMPRESSION: 1. Mild left glenohumeral and moderate acromioclavicular osteoarthritis. No acute osseous abnormality . Reviewed, dictated and finalized at location A. OLL REPRESENTATIVE IMPRESSION: 1. Mild left glenohumeral and moderate acromioclavicular osteoarthritis. No acu te osseous abnormality.
--- NOTE | ~2021-06-17 | XR_ITS ---
EXAMINATION: XR_CERV2-3V_CR DATE: 06/18/2021 00:48 INDICATION: Left upper extremity pain. Neck pain. TECHNIQUE: 4 views of cervical spine on 5 radiographs were obtained. COMPARISON: None. FINDINGS: There is 5 degrees levocurvature of cervicothoracic spine. There is 2 mm retrolisthesis of C4 on C5 and C5 on C6. Vertebral body heights are normal. There is severely decreased disc height at C4-C5 and C5-C6. There is multilevel mild facet joint osteoarthritis. There is mild central canal rodney nosis at C4-C5 and C5-C6. There is prevertebral soft tissue swelling at C1-C2. IMPRESSION: 1. Severe cervical spondylosis. Reviewed, dictated and finalized at location A. UREMENT INTERNSHIP
--- NOTE | ~2021-06-17 | CT_ITS ---
EXAMINATION: CT cervical spine wo con DATE: 06/18/2021 01:55 INDICATION: Left-sided radiculopathy. TECHNIQUE: Computed tomography (CT) of the cervical spine was performed without intravenous contrast. Automated exposure control and iterative reconstruction technique were employed. The dose-length pro duct was 508.07 mGy-cm. COMPARISON: CT cervical spine radiographs 06/18/2021 FINDINGS: There is 2 mm retrolisthesis of C4 on C5 and C5 on C6. There is 3 degrees levocurvature of cervical spine. Vertebral body heights are normal. There is severely decreased disc height at C4-C5 a nd C5-C6 and with endplate remodeling. C1 posterior arch is chronically ununited. The following disc levels are specifically discussed: C2-C3: There is mild right uncovertebral joint osteoarthritis. There is mild right and moderate left facet joint osteoarthritis. There is no neural foraminal stenosis. There is no central canal stenosis . C3-C4: There is mild left uncovertebral joint osteoarthritis. There is mild right and moderate left f acet joint osteoarthritis. There is mild left neural foraminal stenosis. There is no central canal st enosis. C4-C5: There is severe bilateral uncovertebral joint osteoarthritis. There is moderate right and tamiko re left facet joint osteoarthritis. There is mild bilateral neural foraminal stenosis. There is mild central canal stenosis. C5-C6: There is severe bilateral uncovertebral joint osteoarthritis. There is moderate bilateral face t joint osteoarthritis. There is mild bilateral neural foraminal stenosis. There is mild central alfred l stenosis. C6-C7: There is no uncovertebral joint osteoarthritis. There is moderate right and mild left facet hannah int osteoarthritis. There is no neural foraminal stenosis. There is no central canal stenosis. C7-T1: There is no uncovertebral joint osteoarthritis. There is mild bilateral facet joint osteoarthr itis. There is no neural foraminal stenosis. There is no central canal stenosis. IMPRESSION: 1. No fracture. 2. Severe cervical spondylosis. Reviewed, dictated and finalized at location A. RACT ADMINISTRATION COORDINATOR
[2021-06-17 22:19] VITALS: BP 130/72; PULSE 98; RESP 15; TEMP 36.4; O2SAT 99
--- NOTE | 2021-06-17 23:43 | ECG_ITS ---
Measurements Intervals [place] Rate: 92 P: 65 GA: 149 QRS: -25 QRSD: 112 T: 76 QT: 366 QTc: 453 Interpretive Statements SINUS RHYTHM BORDERLINE R WAVE PROGRESSION, ANTERIOR LEADS BORDERLINE ECG Electronically Signed On 06-18-2021 6:04:29 LINE DEPARTMENT SUPERVISOR by Anthony Mckeon D.O.
[2021-06-18] MEDS: KETOROLAC 30 MG/ML VIAL (*BKC) IM (00:58)
--- NOTE | 2021-06-18 01:16 | ED.GENADULT ---
HPI - General Adult General Chief complaint: Extremity Injury, Upper Stated complaint: left arm pain x 2 days Time Seen by Provider: 06/17/21 23:33 History of Present Illness HPI narrative: Patient 60-year-old gentleman who presents the emergency department with chief complaint of pain down left arm. The patient reports that he started having discomfort in his left upper arm up into his neck and down to his elbow. The patient states is an aching-like pain. The patient reports that it is worse with movement and improved with rest. The patient denies trauma. 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 Related Data Home Medications Medication Instructions Recorded Confirmed insulin detemir U-100 100 unit/mL 30 unit SUBCUT HS ml 08/02/19 09/05/20 (3 mL) subcutaneous pen Allergies Allergy/AdvReac Type Severity Reaction Status Date / Time amoxicillin AdvReac Unknown Nausea Verified 01/16/21 15:38 Review of Systems Review of Systems: A 10 system review of systems was completed on the patient and is negative except for what is stated in the HPI. Nursing and ancillary documentation was reviewed. [facility] Past Medical History Medical History (Updated 06/18/21 @ 03:10 by Lorenzo Wilkerson MD) Anemia Charcot foot due to diabetes mellitus Charcot's joint arthropathy in type 2 diabetes mellitus Degenerative arthritis of cervical spine On diclofenac Diabetes Diabetic autonomic neuropathy associated with type 2 diabetes mellitus Diabetic foot ulcer associated with diabetes mellitus due to underlying condition Diabetic retinopathy associated with type 2 diabetes mellitus Foot fracture, left Hyperlipidemia Hyponatremia Knee osteoarthritis Left ventricular hypertrophy Morbid obesity with BMI of 45.0-49.9, adult Obstructive sleep apnea Sleep study June 2015 recommended CPAP of 14 Osteomyelitis Other and unspecified hyperlipidemia Vision abnormalities Surgical History Surgical History H/O wisdom tooth extraction History of circumcision History of foot surgery History of tonsillectomy Family History Family History Mother Diabetes mellitus, Onset Age: 80 Pancreatic cancer Father Carcinoma of colon Malignant neoplasm of prostate Hypertension COPD (chronic obstructive pulmonary disease) Cardiovascular disease Obesity Sibling Family history of obesity Malignant neoplasm of prostate Diabetes mellitus Cardiovascular disease Premature Grandparent Malignant neoplasm of prostate Social History Social History Social History: The patient lives with his and she is a durable power banking attorney for healthcare. The patient desires to be a full code. He is a former smoker. 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 He has 1 daughter who is healthy. Primary care provider: Dr. Elias Montalvo Code status: Full code Advanced directives: None Smoking packs per day: 2.5 Smoking cigarettes per day: 50.0 Years smoked: 26 Smoking pack-years: 65.00 Tobacco type: cigarettes Second hand tobacco smoke exposure: No Smoking end date: 12/05/97 Additional smoking assessment comments: QUIT 1997 Alcohol intake: never Drinks per week: 1 Alcohol use details: He rarely drinks alcohol and only in moderation. Substance use: never Substance use type: does not use Additional living arrangements comments: He lives with his of 26 years. He has 1 adult daughter who is healthy. 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 Gender identity (if verbalized by the patient): Male Spiritual care concerns: No Exam Narrative: GENERAL: Well-appearing, well-nourished, and in no acute distress. HEAD: Normocephal
[2021-06-18 03:20] VITALS: RESP 18; O2SAT 98
== END 2021-06-18 03:20 | disposition home or self-care (01) ==
PROVIDERS: Emergency Provider Emergency Medicine; PCP Family Medicine
DX: M54.12 Radiculopathy, cervical region (principal); E11.610 Type 2 diabetes mellitus with diabetic neuropathic arthropathy; E11.43 Type 2 diabetes mellitus with diabetic autonomic (poly)neuropathy; E11.319 Type 2 diabetes mellitus with unspecified diabetic retinopathy without macular edema; E78.5 Hyperlipidemia, unspecified; M17.10 Unilateral primary osteoarthritis, unspecified knee; G47.33 Obstructive sleep apnea (adult) (pediatric); E66.01 Morbid (severe) obesity due to excess calories; Z68.41 Body mass index [BMI] 40.0-44.9, adult; Z87.891 Personal history of nicotine dependence; Z79.4 Long term (current) use of insulin; R94.31 Abnormal electrocardiogram [ECG] [EKG]
CPT/HCPCS: 72040; 72125; 73060; 93005; 96372; 99284; J1885

== ENCOUNTER 2021-10-08 01:53 | Day surgery (SDC) | payer OTHER, SELFPAY ==
[2021-10-04 13:04] VITALS: BMI 43.1
--- NOTE | 2021-10-08 13:02 | WPDGICN ---
Assessment and Plan Assessment and plan (1) Colon cancer screening: Code(s): Z12.11 - Encounter for screening for malignant neoplasm of colon Status: Acute Assessment and Plan: Patient presents for neoplasia screening colonoscopy. Appears to be at average risk for colon polyps. (2) Diabetes mellitus with complication: Code(s): E11.8 - Type 2 diabetes mellitus with unspecified complications Status: Acute (3) S/P BKA (below knee amputation): Qualifiers: Laterality: right Qualified Code(s): Z89.511 - Acquired absence of right leg below knee Code(s): Z89.519 - Acquired absence of unspecified leg below knee Status: Acute GI Consult Note Consult date/time: 10/08/21 13:02 HPI: Neil Haines is a 61 year old male Presents for screening colonoscopy. His current weight appetite and bowel movements are normal. He denies abdominal pain. He has had no bleeding. Family history is noncontributory. Patient has never had prior colonoscopy. Past medical history is significant for diabetes mellitus. He has a history of a right BKA. Review of Systems Review of Systems: All systems reviewed & are unremarkable except as noted in HPI and below PMFSH Past Medical History Medical History (Updated 08/02/21 @ 11:28 by Elias Montalvo MD) Anemia Charcot foot due to diabetes mellitus Charcot's joint arthropathy in type 2 diabetes mellitus Degenerative arthritis of cervical spine On diclofenac Diabetes Diabetic autonomic neuropathy associated with type 2 diabetes mellitus Diabetic foot ulcer associated with diabetes mellitus due to underlying condition Diabetic retinopathy associated with type 2 diabetes mellitus Foot fracture, left Hyperlipidemia Hyponatremia Knee osteoarthritis Left ventricular hypertrophy Morbid obesity with BMI of 45.0-49.9, adult Obstructive sleep apnea Sleep study June 2015 recommended CPAP of 14 Osteomyelitis Other and unspecified hyperlipidemia Vision abnormalities Surgical History Surgical History H/O wisdom tooth extraction History of circumcision History of foot surgery History of tonsillectomy Family History Family History Mother Diabetes mellitus, Onset Age: 80 Pancreatic cancer Father Carcinoma of colon Malignant neoplasm of prostate Hypertension COPD (chronic obstructive pulmonary disease) Cardiovascular disease Obesity Sibling Family history of obesity Malignant neoplasm of prostate Diabetes mellitus Cardiovascular disease Premature Grandparent Malignant neoplasm of prostate Social History Social History (Updated 08/02/21 @ 10:50 by Komal Mac, [facility]) Social History: The patient lives with his and she is a durable power state's attorney for healthcare. The patient desires to be a full code. He is a former smoker. 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 He has 1 daughter who is healthy. Primary care provider: Dr. Elias Montalvo Code status: Full code Advanced directives: None Smoking packs per day: 2.5 Smoking cigarettes per day: 50.0 Years smoked: 26 Smoking pack-years: 65.00 Smoking status: Former smoker Tobacco type: cigarettes Second hand tobacco smoke exposure: No Smoking end date: 12/05/97 Additional smoking assessment comments: QUIT 1997 Alcohol intake: current Drinks per week: 1 Alcohol use details: He rarely drinks alcohol and only in moderation. Substance use: never Substance use type: does not use Living arrangements: with family Additional living arrangements comments: He lives with his of 26 years. He has 1 adult daughter who is healthy. 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 Gender identity (if verbalized by the patient): Male Spiritual ca
[2021-10-08 13:06] VITALS: BP 125/67; PULSE 96; RESP 20; TEMP 36.6; O2SAT 100; BMI 43.2
[2021-10-08] MEDS: LACTATED RINGERS 1,000 ML 150 ML IV CONT (13:16)
[2021-10-08 13:19] LABS: Glucose Point of Care 225 mg/dl (65-105)
--- NOTE | 2021-10-08 13:31 | WPDANESEPPF ---
Anes - Initial Pre Proc Eval Procedure: Operation Date: 10/08/21 14:00 Proposed Procedures p Screening Colonoscopy - Shaquille Araiza MD Date/Time: 10/08/21 13:31 Surgeon: Shaquille Araiza MD Pre Op Diagnosis: neoplasm screening Patient Data Age: 61 Gender: M Height: 1.7 m Weight: 125.3 kg Last Vital Signs Temp 97.8 F 10/08/21 13:06 Pulse 96 10/08/21 13:06 Resp 20 10/08/21 13:06 BP 125/67 10/08/21 13:06 Pulse Ox 100 10/08/21 13:06 Allergies Allergy/AdvReac Type Severity Reaction Status Date / Time No Known Allergies Allergy Verified 10/08/21 13:01 Home Medications Medication Instructions Recorded Confirmed Type insulin detemir U-100 100 unit/mL 30 unit SUBCUT HS ml 08/02/19 10/04/21 History (3 mL) subcutaneous pen insulin aspart U-100 100 unit/mL See Rx Instructions .ROUTE 06/12/20 10/04/21 Rx (3 mL) subcutaneous pen .COMPLEX #27 syringe duloxetine 60 mg capsule,delayed See Rx Instructions .ROUTE 10/05/20 10/04/21 Rx release .COMPLEX #90 cap atorvastatin 20 mg tablet 20 mg PO DAILY #90 tablet 10/16/20 10/04/21 Rx pantoprazole 40 mg tablet,delayed 40 mg PO QAM #90 tablet 01/18/21 10/04/21 Rx release pen needle, diabetic 31 gauge x See Rx Instructions .ROUTE 06/11/21 10/04/21 Rx 5/16 .COMPLEX #200 syringe cyclobenzaprine 10 mg PO TID PRN #21 tablet 06/18/21 10/04/21 Rx blood sugar diagnostic #400 ea 07/31/21 Rx trazodone 150 mg tablet 150 mg PO QHS #90 tablet 08/02/21 10/04/21 Rx blood sugar diagnostic #200 ea 08/03/21 Rx lancets #200 ea 08/03/21 Rx lisinopril 5 mg tablet 5 mg PO DAILY #90 tablet 08/28/21 10/04/21 Rx Adults Multivitamin 1 tab-cap PO DAILY 10/04/21 10/04/21 History calcium carbonate-vitamin D3 2 tablet PO DAILY 10/04/21 10/04/21 History [Calcium 600 + D(3)] cholecalciferol (vitamin D3) 125 mcg PO DAILY 10/04/21 10/04/21 History [Vitamin D3] gabapentin 300 mg PO HS 10/04/21 10/04/21 History glucos sul [id number]-[id number]-Mn 1 cap PO DAILY 10/04/21 10/04/21 History [Glucosamine Chondroitin] meloxicam 15 mg PO DAILY 10/04/21 10/04/21 History metformin 2,000 mg PO HS 10/04/21 10/04/21 History semaglutide 1 mg SUBCUT WEEKLY 10/04/21 10/04/21 History trazodone 100 mg PO HS 10/04/21 10/04/21 History Laboratory Tests 10/08/21 13:13 POC Capillary Glucose 225 mg/dl H mg/dl (65-105) Patient hx anesthesia problems: none Family hx anesthesia problems: none Results Review: All pre-operative results and documents have been reviewed as part of the pre-operative evaluation. [facility] Past Medical History Medical History (Updated 08/02/21 @ 11:28 by Elias Montalvo MD) Anemia Charcot foot due to diabetes mellitus Charcot's joint arthropathy in type 2 diabetes mellitus Degenerative arthritis of cervical spine On diclofenac Diabetes Diabetic autonomic neuropathy associated with type 2 diabetes mellitus Diabetic foot ulcer associated with diabetes mellitus due to underlying condition Diabetic retinopathy associated with type 2 diabetes mellitus Foot fracture, left Hyperlipidemia Hyponatremia Knee osteoarthritis Left ventricular hypertrophy Morbid obesity with BMI of 45.0-49.9, adult Obstructive sleep apnea Sleep study June 2015 recommended CPAP of 14 Osteomyelitis Other and unspecified hyperlipidemia Vision abnormalities Surgical History Surgical History H/O wisdom tooth extraction History of circumcision History of foot surgery History of tonsillectomy Family History Family History Mother Diabetes mellitus, Onset Age: 80 Pancreatic cancer Father Carcinoma of colon Malignant neoplasm of prostate Hypertension COPD (chronic obstructive pulmonary disease) Cardiovascular disease Obesity Sibling Family history of obesity Malignant neoplasm of prostate Diabetes mellitus Cardiovascular disease
[2021-10-08 14:02] VITALS: BP 94/54; PULSE 94; RESP 27; O2SAT 94
[2021-10-08 14:12] VITALS: BP 102/55; PULSE 91; RESP 19; O2SAT 94
[2021-10-08 14:20] LABS: Glucose Point of Care 203 mg/dl (65-105)
[2021-10-08 14:22] VITALS: BP 109/59; PULSE 98; RESP 19; O2SAT 95
== END 2021-10-08 14:43 | disposition home or self-care (01) ==
PROVIDERS: PCP Family Medicine; Visit Provider Internal Medicine Gastroenterology
PROC: 0DJD8ZZ Inspection of Lower Intestinal Tract, Via Natural or Artificial Opening Endoscopic (ICD-10-PCS; CPT 45378; principal; 2021-10-08 14:00)
DX: Z12.11 Encounter for screening for malignant neoplasm of colon (principal); D12.2 Benign neoplasm of ascending colon; Z89.519 Acquired absence of unspecified leg below knee; E11.610 Type 2 diabetes mellitus with diabetic neuropathic arthropathy; E11.319 Type 2 diabetes mellitus with unspecified diabetic retinopathy without macular edema; G47.33 Obstructive sleep apnea (adult) (pediatric); E78.49 Other hyperlipidemia; E66.01 Morbid (severe) obesity due to excess calories; Z68.41 Body mass index [BMI] 40.0-44.9, adult; Z87.891 Personal history of nicotine dependence; Z79.4 Long term (current) use of insulin; Z79.84 Long term (current) use of oral hypoglycemic drugs; Z79.899 Other long term (current) drug therapy
CPT/HCPCS: 45385; 82948; 88305; J2704; J7120

== ENCOUNTER 2021-11-28 17:12 | Outpatient (CLI) | payer OTHER, SELFPAY ==
[2021-11-28 17:33] LABS: Basophils Percent Auto 0.3 % (0.2-1.2); Eosinophils Absolute Auto 0.3 K/mm3 (0-0.3); Eosinophils Percent Auto 4.3 % (0-4.4); Hematocrit 35.8 % (42.0-52.0); Hemoglobin 12.5 g/dL (14.0-18.0); Immature Granulocyte Absolute 0.02 K/mm3 (0.00-0.031); Immature Granulocyte Percent A 0.3 % (0-0.5); Lymphocytes Absolute Auto 1.53 K/mm3 (0.9-3.2); Lymphocytes Percent Auto 26.1 % (18.3-44.2); Mean Corpuscular HGB Conc 34.9 g/dl (32-36); Mean Corpuscular Hemoglobin 31.5 pg (26-34); Mean Corpuscular Volume 90.2 fl (80-100); Monocytes Absolute Auto 0.3 K/mm3 (0.1-0.6); Monocytes Percent Auto 5.5 % (2.6-8.5); Neutrophils Absolute Auto 3.7 K/mm3 (1.3-6.7); Neutrophils Percent Auto 63.5 % (45.5-73.1); Platelet Count Result 237 k/mm3 (150-375); Red Blood Count 3.97 M/mm3 (4.6-6.20); Red Cell Distribution Width 12.4 % (11.5-14.5); White Blood Count 5.9 K/mm3 (4.5-10.0)
[2021-11-28 18:22] LABS: Creatinine Urine 91.3 mg/dL
[2021-11-28 18:27] LABS: MALB Creatinine Ratio 16.5 mg/g (0-30); Microalbumin Urine Random 15.1 mg/L (0-16.7)
[2021-11-28 19:32] LABS: LDL Cholesterol Direct 64 mg/dL
[2021-11-28 19:38] LABS: Alanine Aminotransferase 19 U/L (6-50); Alkaline Phosphatase 93 U/L (38-126); Anion Gap 6 mmol/L (8-16); Aspartate Amino Transferase 21 U/L (17-59); Bilirubin,Total 0.2 mg/dL (0.2-1.3); Blood Urea Nitrogen 20 mg/dL (9-20); Calcium 8.7 mg/dL (8.4-10.2); Carbon Dioxide 29 mmol/L (22-30); Chloride 97 mmol/L (98-107); Cholesterol 240 mg/dL (0-200); Estimated Glomerular Filt Rate 52; Glucose 383 mg/dL (65-110); Potassium 4.5 mmol/L (3.4-5.0); Sodium 132 mmol/L (137-145)
[2021-11-28 19:39] LABS: Triglycerides 881 mg/dL (<150)
[2021-11-28 19:52] LABS: Prostate Specific Antigen 0.6 ng/mL (< OR = 4.0)
[2021-11-28 20:16] LABS: Hemoglobin A1C 10.2 % (<5.7)
== END 2021-11-28 17:13 | disposition home or self-care (01) ==
PROVIDERS: PCP Family Medicine; Visit Provider Physician Assistant
DX: Z12.5 Encounter for screening for malignant neoplasm of prostate (principal); E78.5 Hyperlipidemia, unspecified; L97.415 Non-pressure chronic ulcer of right heel and midfoot with muscle involvement without evidence of necrosis; E08.621 Diabetes mellitus due to underlying condition with foot ulcer; I11.0 Hypertensive heart disease with heart failure; Z89.511 Acquired absence of right leg below knee
CPT/HCPCS: 36415; 80053; 80061; 82043; 83036; 84153; 84443; 85025; G0103

== ENCOUNTER 2022-08-03 11:13 | Outpatient (CLI) | payer OTHER, SELFPAY ==
[2022-08-03 13:14] LABS: Alanine Aminotransferase 19 U/L (6-50); Alkaline Phosphatase 92 U/L (38-126); Anion Gap 7 mmol/L (8-16); Aspartate Amino Transferase 20 U/L (17-59); Bilirubin,Total 0.5 mg/dL (0.2-1.3); Blood Urea Nitrogen 21 mg/dL (9-20); Calcium 9.4 mg/dL (8.4-10.2); Carbon Dioxide 32 mmol/L (22-30); Chloride 99 mmol/L (98-107); Cholesterol 308 mg/dL (0-200); Estimated Glomerular Filt Rate 52; Glucose 109 mg/dL (65-110); Potassium 4.2 mmol/L (3.4-5.0); Sodium 138 mmol/L (137-145)
[2022-08-03 13:21] LABS: LDL Cholesterol Direct 80 mg/dL
[2022-08-03 15:56] LABS: Triglycerides 772 mg/dL (<150)
== END 2022-08-03 11:14 | disposition home or self-care (01) ==
LOC: ANHLAB 11:14
PROVIDERS: PCP Family Medicine; Visit Provider Family Medicine
DX: E78.5 Hyperlipidemia, unspecified (principal); E11.8 Type 2 diabetes mellitus with unspecified complications
CPT/HCPCS: 36415; 80053; 80061; 83036

== ENCOUNTER 2022-10-22 17:31 | Emergency (ER) | payer OTHER, MEDICARE, SELFPAY ==
--- NOTE | 2022-10-22 17:51 | ED.SKABFB ---
HPI - Skin/Abscess/Foreign Bdy General Chief complaint: Wound/Laceration Stated complaint: head laceration Time Seen by Provider: 10/22/22 17:51 Source: patient Mode of arrival: ambulatory Limitations: no limitations History of Present Illness HPI narrative: 62-year-old male presents with laceration to posterior scalp. Injury have been at approximately 9:00 a.m. this morning. Patient states that he tripped over his dog and fell backwards and hit his head against a doorjam. Denies LOC. No headaches. States that he had to go to work so he had his sister clean his wound and she told him that it was not that bad . ER home to from work today and should to his and wanted patient to be seen. Bleeding is controlled. No headache, vision changes or nausea. Ambulatory with steady gait. All systems reviewed and negative except as noted above. Related Data Home Medications Medication Instructions Recorded Confirmed Adults Multivitamin 1 tab-cap PO DAILY 10/04/21 10/22/22 calcium carbonate 600 mg-vitamin 2 tablet PO DAILY 10/04/21 10/22/22 D3 10 mcg (400 unit) tablet (Calcium 600 + D(3)) cholecalciferol (vitamin D3) 125 125 mcg PO DAILY 10/04/21 10/22/22 mcg (5,000 unit) tablet (Vitamin D3) glucosamine sulf dipot 1 cap PO DAILY 10/04/21 10/22/22 chlr,msm,chond 550 mg-C 30 mg-alejandro 1 mg capsule (Glucosamine Chondroitin) trazodone 100 mg tablet 200 mg PO HS 10/04/21 10/22/22 Allergies Allergy/AdvReac Type Severity Reaction Status Date / Time No Known Allergies Allergy Verified 10/22/22 17:55 Review of Systems Review of Systems: CONSTITUTIONAL: Denies fever, chills, or sweats. EYES: Denies visual changes, redness, or discharge. ENT: Denies rhinorrhea, congestion, sore throat, or otalgia. CARDIOVASCULAR: Denies chest pain, palpitations, or edema. RESPIRATORY: Denies cough or dyspnea. GASTROINTESTINAL: Denies abdominal pain, nausea, vomiting, or diarrhea. GENITOURINARY: Denies dysuria or hematuria. SKIN: Reports scalp laceration. MUSCULOSKELETAL: Denies back pain, joint pain, or myalgia. NEUROLOGIC: Denies headache, numbness, or weakness. PSYCHIATRIC: Denies anxiety or depression. All other systems reviewed are negative, except as documented in HPI. [facility] Past Medical History Medical History Anemia Charcot foot due to diabetes mellitus Charcot's joint arthropathy in type 2 diabetes mellitus Colon polyp Degenerative arthritis of cervical spine On diclofenac Diabetes Diabetic autonomic neuropathy associated with type 2 diabetes mellitus Diabetic foot ulcer associated with diabetes mellitus due to underlying condition Diabetic retinopathy associated with type 2 diabetes mellitus Foot fracture, left Hyperlipidemia Hyponatremia Knee osteoarthritis Left ventricular hypertrophy Morbid obesity with BMI of 45.0-49.9, adult Obstructive sleep apnea Sleep study June 2015 recommended CPAP of 14 Osteomyelitis Other and unspecified hyperlipidemia Vision abnormalities Surgical History Surgical History H/O wisdom tooth extraction History of circumcision History of foot surgery History of tonsillectomy Family History Family History Mother Diabetes mellitus, Onset Age: 80 Pancreatic cancer Father Carcinoma of colon Malignant neoplasm of prostate Hypertension COPD (chronic obstructive pulmonary disease) Cardiovascular disease Obesity Sibling Family history of obesity Malignant neoplasm of prostate Diabetes mellitus Cardiovascular disease Premature Grandparent Malignant neoplasm of prostate Social History Social History Social History: The patient lives with his and she is a durable power title attorney for healthcare. The patient desires to be a full co
[2022-10-22 17:55] VITALS: BP 120/69; PULSE 93; RESP 18; TEMP 36.3; O2SAT 98
== END 2022-10-22 18:11 | disposition home or self-care (01) ==
PROVIDERS: Emergency Provider Nurse Practitioner Family; PCP Family Medicine
DX: S01.01XA Laceration without foreign body of scalp, initial encounter (principal); S09.90XA Unspecified injury of head, initial encounter; W01.0XXA Fall on same level from slipping, tripping and stumbling without subsequent striking against object, initial encounter; Z87.891 Personal history of nicotine dependence; E78.5 Hyperlipidemia, unspecified; E66.01 Morbid (severe) obesity due to excess calories; Z68.41 Body mass index [BMI] 40.0-44.9, adult; E11.319 Type 2 diabetes mellitus with unspecified diabetic retinopathy without macular edema; E11.43 Type 2 diabetes mellitus with diabetic autonomic (poly)neuropathy; Z79.4 Long term (current) use of insulin; Z79.84 Long term (current) use of oral hypoglycemic drugs
CPT/HCPCS: 99212; G0463

== ENCOUNTER 2023-02-03 10:25 | Outpatient (CLI) | payer OTHER, MEDICARE, SELFPAY ==
[2023-02-03 19:28] LABS: Alanine Aminotransferase 21 U/L (6-50); Alkaline Phosphatase 72 U/L (38-126); Anion Gap 6 mmol/L (8-16); Aspartate Amino Transferase 37 U/L (17-59); Bilirubin,Total 0.4 mg/dL (0.2-1.3); Blood Urea Nitrogen 48 mg/dL (9-20); Calcium 8.9 mg/dL (8.4-10.2); Carbon Dioxide 33 mmol/L (22-30); Chloride 98 mmol/L (98-107); Cholesterol 289 mg/dL (0-200); Estimated Glomerular Filt Rate 39; Glucose 161 mg/dL (65-110); HDL Direct 32 mg/dL; Potassium 5.1 mmol/L (3.4-5.0); Sodium 137 mmol/L (137-145); Triglycerides 371 mg/dL (<150)
[2023-02-03 19:39] LABS: LDL Cholesterol Direct 135 mg/dL
[2023-02-03 19:46] LABS: Creatinine Urine 105.4 mg/dL
[2023-02-03 19:49] LABS: MALB Creatinine Ratio 89.8 mg/g (0-30); Microalbumin Urine Random 94.7 mg/L (0-16.7)
[2023-02-03 19:54] LABS: Hemoglobin A1C 10.7 % (<5.7)
== END 2023-02-03 10:26 | disposition home or self-care (01) ==
LOC: ANHGOSHLAB 10:30
PROVIDERS: PCP Family Medicine; Visit Provider Family Medicine
DX: E11.9 Type 2 diabetes mellitus without complications (principal)
CPT/HCPCS: 36415; 80053; 80061; 82043; 83036

== ENCOUNTER 2023-05-14 10:11 | Outpatient (CLI) | payer OTHER, MEDICARE, SELFPAY ==
[2023-05-14 19:41] LABS: Basophils Percent Auto 0.6 % (0.2-1.2); Eosinophils Absolute Auto 0.2 K/mm3 (0-0.3); Eosinophils Percent Auto 2.4 % (0-4.4); Hematocrit 39.3 % (42.0-52.0); Hemoglobin 13.1 g/dL (14.0-18.0); Immature Granulocyte Absolute 0.02 K/mm3 (0.00-0.031); Immature Granulocyte Percent A 0.3 % (0-0.5); Lymphocytes Absolute Auto 1.15 K/mm3 (0.9-3.2); Lymphocytes Percent Auto 16.9 % (18.3-44.2); Mean Corpuscular HGB Conc 33.3 g/dl (32-36); Mean Corpuscular Hemoglobin 30.3 pg (26-34); Mean Platelet Volume 11.1 fl (7.4-10.4); Monocytes Absolute Auto 0.6 K/mm3 (0.1-0.6); Monocytes Percent Auto 8.7 % (2.6-8.5); Neutrophils Absolute Auto 4.8 K/mm3 (1.3-6.7); Neutrophils Percent Auto 71.1 % (45.5-73.1); Platelet Count Result 258 k/mm3 (150-375); Red Blood Count 4.32 M/mm3 (4.6-6.20); Red Cell Distribution Width 12.7 % (11.5-14.5); White Blood Count 6.8 K/mm3 (4.5-10.0)
[2023-05-14 19:55] LABS: Alanine Aminotransferase 22 U/L (6-50); Albumin Level 4.3 g/dL (3.5-5.1); Alkaline Phosphatase 103 U/L (38-126); Anion Gap 10 mmol/L (8-16); Aspartate Amino Transferase 22 U/L (17-59); Bilirubin,Total 0.7 mg/dL (0.2-1.3); Blood Urea Nitrogen 24 mg/dL (9-20); Calcium 9.4 mg/dL (8.4-10.2); Carbon Dioxide 26 mmol/L (22-30); Chloride 94 mmol/L (98-107); Estimated Glomerular Filt Rate 52; Glucose 417 mg/dL (65-110); Potassium 4.6 mmol/L (3.4-5.0); Sodium 130 mmol/L (137-145)
[2023-05-14 20:43] LABS: Hemoglobin A1C 9.5 % (<5.7)
== END 2023-05-14 10:12 | disposition home or self-care (01) ==
LOC: ANHGOSHLAB 10:13
PROVIDERS: PCP Family Medicine; Visit Provider Nurse Practitioner Family
DX: R53.83 Other fatigue (principal); E11.9 Type 2 diabetes mellitus without complications; N18.30 Chronic kidney disease, stage 3 unspecified
CPT/HCPCS: 36415; 80053; 83036; 84443; 85025

== ENCOUNTER 2023-11-15 19:16 | Emergency (ER) | payer OTHER, MEDICARE, SELFPAY ==
[2023-11-15] VITALS (7 sets, daily range): BP systolic 112–155; BP diastolic 55–122; PULSE 77–92; RESP 19–20; TEMP 36.2; O2SAT 97–98
--- NOTE | ~2023-11-15 | XR_ITS ---
EXAM: XR ankle LT min 3V, XR foot LT min 3V DATE: 11/15/2023 20:45 HISTORY: bruises around toes, unknown injury; hx neuropathy . COMPARISON: None available. FINDINGS: Normal mineralization. No fracture or dislocation. No lytic or blastic lesion. Achilles an d plantar enthesopathy. Mild scattered degenerative changes. No erosion or periosteal change. Soft ti ssues within normal limits. IMPRESSION: No acute osseous finding in the left ankle or foot. Reviewed, dictated and finalized at location [facility]. IMPRESSION: No acute osseous finding in the left ankle or foot.
--- NOTE | 2023-11-15 21:31 | ED.LOWEXIN ---
HPI - Extremity Injury (Lower) General Chief Complaint: Extremity Injury, Lower Stated Complaint: L foot injury Time Seen by Provider: 11/15/23 19:32 Source: patient and family History of Present Illness HPI Narrative: 63 years old white male came to the emergency room by private car with his complaining of pain started at the left heel desperate to the bottom of his left foot started 6 days ago. Workup this morning with bluish discoloration of patches on the dorsal side of the 2nd, 3rd and 5th toe and at the medial side of the big toe and bottom of the foot. History of diabetes, with peripheral neuropathy, does not feel pain. Patient is able to move the toes and ankle without restraint. Right below-knee amputation secondary to a known fractured toes in the past. History of diabetes, hyperlipidemia, quit smoking 25 years ago, Related Data Home Medications Medication Instructions Recorded Confirmed Adults Multivitamin 1 tab-cap PO DAILY 10/04/21 06/05/23 calcium carbonate 600 mg-vitamin 2 tablet PO DAILY 10/04/21 06/05/23 D3 10 mcg (400 unit) tablet (Calcium 600 + D(3)) cholecalciferol (vitamin D3) 125 125 mcg PO DAILY 10/04/21 06/05/23 mcg (5,000 unit) tablet (Vitamin D3) glucosamine sulf dipot 1 cap PO DAILY 10/04/21 06/05/23 chlr,msm,chond 550 mg-C 30 mg-alejandro 1 mg capsule (Glucosamine Chondroitin) Allergies Allergy/AdvReac Type Severity Reaction Status Date / Time No Known Allergies Allergy Verified 11/15/23 19:27 [facility] Past Medical History Medical History Anemia Charcot foot due to diabetes mellitus Charcot's joint arthropathy in type 2 diabetes mellitus Colon polyp Degenerative arthritis of cervical spine On diclofenac Diabetes Diabetic autonomic neuropathy associated with type 2 diabetes mellitus Diabetic foot ulcer associated with diabetes mellitus due to underlying condition Diabetic retinopathy associated with type 2 diabetes mellitus Foot fracture, left Hyperlipidemia Hyponatremia Knee osteoarthritis Left ventricular hypertrophy Morbid obesity with BMI of 45.0-49.9, adult Obstructive sleep apnea Sleep study June 2015 recommended CPAP of 14 Osteomyelitis Other and unspecified hyperlipidemia Vision abnormalities Surgical History Surgical History H/O wisdom tooth extraction History of circumcision History of foot surgery History of tonsillectomy Family History Family History Mother Diabetes mellitus, Onset Age: 80 Pancreatic cancer Father Carcinoma of colon Malignant neoplasm of prostate Hypertension COPD (chronic obstructive pulmonary disease) Cardiovascular disease Obesity Sibling Family history of obesity Malignant neoplasm of prostate Diabetes mellitus Cardiovascular disease Premature Grandparent Malignant neoplasm of prostate Social History Social History Social History: The patient lives with his and she is a durable power business attorney for healthcare. The patient desires to be a full code. He is a former smoker. 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 He has 1 daughter who is healthy. Primary care provider: Dr. Elias Montalvo Code status: Full code Advanced directives: None Smoking packs per day: 2.5 Smoking cigarettes per day: 50.0 Years smoked: 26 Smoking pack-years: 65.00 Smoking status: Never smoker Tobacco type: cigarettes Second hand tobacco smoke exposure: No Smoking end date: 12/05/97 Additional smoking assessment comments: QUIT 1997 Alcohol intake: current Drinks per week: 1 Alcohol use details: He rarely drinks alcohol and only in moderation. Substance use: never Substance use type: does not use Lack of Transportation: No Lack of
[2023-11-15 23:03] LABS: Basophils Percent Auto 0.4 % (0.2-1.2); Eosinophils Absolute Auto 0.2 K/mm3 (0-0.3); Eosinophils Percent Auto 3.4 % (0-4.4); Hematocrit 37.5 % (42.0-52.0); Hemoglobin 12.6 g/dL (14.0-18.0); Immature Granulocyte Absolute 0.02 K/mm3 (0.00-0.031); Immature Granulocyte Percent A 0.3 % (0-0.5); Lymphocytes Absolute Auto 1.45 K/mm3 (0.9-3.2); Lymphocytes Percent Auto 21.1 % (18.3-44.2); Mean Corpuscular HGB Conc 33.6 g/dl (32-36); Mean Corpuscular Hemoglobin 29.9 pg (26-34); Mean Corpuscular Volume 88.9 fl (80-100); Mean Platelet Volume 9.5 fl (7.4-10.4); Monocytes Absolute Auto 0.5 K/mm3 (0.1-0.6); Monocytes Percent Auto 7.4 % (2.6-8.5); Neutrophils Absolute Auto 4.6 K/mm3 (1.3-6.7); Neutrophils Percent Auto 67.4 % (45.5-73.1); Platelet Count Result 237 k/mm3 (150-375); Red Blood Count 4.22 M/mm3 (4.6-6.20); Red Cell Distribution Width 12.6 % (11.5-14.5); White Blood Count 6.9 K/mm3 (4.5-10.0)
[2023-11-15 23:13] LABS: Alanine Aminotransferase 13 U/L (6-50); Albumin Level 3.9 g/dL (3.5-5.1); Alkaline Phosphatase 78 U/L (38-126); Anion Gap 6 mmol/L (4-12); Aspartate Amino Transferase 16 U/L (17-59); Bilirubin,Total 0.5 mg/dL (0.2-1.3); Blood Urea Nitrogen 21 mg/dL (9-20); Calcium 9.3 mg/dL (8.4-10.2); Carbon Dioxide 29 mmol/L (22-30); Chloride 100 mmol/L (98-107); Estimated CRCL calculation 63 ml/min; Estimated Glomerular Filt Rate 52; Glucose 288 mg/dL (65-110); Potassium 4.6 mmol/L (3.4-5.0); Sodium 135 mmol/L (137-145)
[2023-11-15 23:14] LABS: Prothrombin Time 13.3 Seconds (11.1-14.7)
[2023-11-15 23:15] LABS: Partial Thromboplastin Time 28.8 Seconds (22.3-36.8)
--- NOTE | 2023-11-15 23:20 | PC.NURSE ---
Cassie from transfer center called @[phone] to inform of room assignment. patient was accepted to [facility] room 607. number for report is [phone]. called report at [phone] and gave report to PRACHI Qureshi. all questions answered.
[2023-11-15] MEDS: HEPARIN SOD/D5W 100 UNITS/ML 25,000 UNITS/250 ML BAG 15 UNITS IV CONT (23:30)
[2023-11-15] MEDS: ASPIRIN 81 MG CHEWABLE TABLET 324 MG PO (23:30)
--- NOTE | 2023-11-15 23:43 | PC.NURSE ---
care and report given to PRACHI Rod. all questions answered.
== END 2023-11-16 00:06 | disposition short-term general hospital (02) ==
PROVIDERS: Emergency Provider Emergency Medicine; PCP Family Medicine
DX: I75.022 Atheroembolism of left lower extremity (principal); Z89.511 Acquired absence of right leg below knee; E11.42 Type 2 diabetes mellitus with diabetic polyneuropathy; E78.5 Hyperlipidemia, unspecified; E11.319 Type 2 diabetes mellitus with unspecified diabetic retinopathy without macular edema; E11.69 Type 2 diabetes mellitus with other specified complication; M86.9 Osteomyelitis, unspecified; E66.01 Morbid (severe) obesity due to excess calories; Z68.41 Body mass index [BMI] 40.0-44.9, adult; M17.9 Osteoarthritis of knee, unspecified; Z86.010 Personal history of colon polyps; Z87.891 Personal history of nicotine dependence; Z79.4 Long term (current) use of insulin; Z79.84 Long term (current) use of oral hypoglycemic drugs
CPT/HCPCS: 36415; 73610; 73630; 80053; 85025; 85610; 85730; 96365; 99285; A9270; J1644

== ENCOUNTER 2024-02-20 08:48 | Outpatient (CLI) | payer OTHER, MEDICARE, SELFPAY ==
[2024-02-20 09:35] LABS: Alanine Aminotransferase 11 U/L (6-50); Albumin Level 4.1 g/dL (3.5-5.1); Alkaline Phosphatase 85 U/L (38-126); Anion Gap 8 mmol/L (4-12); Aspartate Amino Transferase 16 U/L (17-59); Bilirubin,Total 0.6 mg/dL (0.2-1.3); Blood Urea Nitrogen 31 mg/dL (9-20); Calcium 9.2 mg/dL (8.4-10.2); Carbon Dioxide 30 mmol/L (22-30); Chloride 94 mmol/L (98-107); Cholesterol 275 mg/dL (0-200); Estimated Glomerular Filt Rate 44; Glucose 404 mg/dL (65-110); Sodium 132 mmol/L (137-145)
[2024-02-20 09:37] LABS: Hemoglobin A1C 11.3 % (<5.7)
[2024-02-20 09:40] LABS: LDL Cholesterol Direct 68 mg/dL
[2024-02-20 09:41] LABS: Triglycerides 983 mg/dL (<150)
[2024-02-20 09:59] LABS: Prostate Specific Antigen 0.8 ng/mL (< OR = 4.0)
[2024-02-23 11:43] LABS: Alpha-1-Antitrypsin, QN 140 mg/dL (83-199)
== END 2024-02-20 08:49 | disposition home or self-care (01) ==
LOC: ANHLAB 08:50
PROVIDERS: PCP Family Medicine; Visit Provider Family Medicine
DX: E11.9 Type 2 diabetes mellitus without complications (principal); Z82.79 Family history of other congenital malformations, deformations and chromosomal abnormalities; Z12.5 Encounter for screening for malignant neoplasm of prostate
CPT/HCPCS: 36415; 80053; 80061; 82103; 83036; 84153; G0103

== ENCOUNTER 2024-12-09 12:31 | Outpatient (CLI) | payer OTHER, MEDICARE, SELFPAY ==
[2024-12-09 12:49] LABS: Basophils Percent Auto 0.1 % (0.2-1.2); Eosinophils Absolute Auto 0.2 K/mm3 (0-0.3); Eosinophils Percent Auto 2.7 % (0-4.4); Hematocrit 38.8 % (42.0-52.0); Immature Granulocyte Absolute 0.02 K/mm3 (0.00-0.031); Immature Granulocyte Percent A 0.3 % (0-0.5); Lymphocytes Absolute Auto 1.12 K/mm3 (0.9-3.2); Lymphocytes Percent Auto 15.7 % (18.3-44.2); Mean Corpuscular HGB Conc 33.5 g/dl (32-36); Mean Corpuscular Hemoglobin 30.2 pg (26-34); Monocytes Absolute Auto 0.5 K/mm3 (0.1-0.6); Monocytes Percent Auto 6.3 % (2.6-8.5); Neutrophils Absolute Auto 5.4 K/mm3 (1.3-6.7); Neutrophils Percent Auto 74.9 % (45.5-73.1); Platelet Count Result 237 k/mm3 (150-375); Red Blood Count 4.31 M/mm3 (4.6-6.20); Red Cell Distribution Width 12.3 % (11.5-14.5); White Blood Count 7.1 K/mm3 (4.5-10.0)
--- OUTSIDE RECORDS SUMMARY | 2024-12-09 13:02 | XMS_ITS | Clinical Summary ---
Author Organization [facility] Address [address] [place] [address] Care Team Providers Care Neurologist Name Role Phone Elias Montalvo MD Primary Care Provider [phone] Source Comments [facility],non-owned Affiliates and Associated Physician Practices is amultiple site organization consisting of ambulatory clinics and hospital sitesin [place], [place], [place] and [place]. This disclosure is being madepursuant to the Care Everywhere program and may not contain all information available regarding this patient. Last updated 18.[facility] Allergies No known active allergies Medications * Be aware that medications may not be up to date on this document. Alwaysverify current medications with the patient. insulin detemir (Levemir) vial Inject 60 (sixty) Units subcutaneously at bedtime Active tirzepatide (Mounjaro) 15 MG/0.5ML injection Inject 15 (fifteen) mg subcutaneously every 7 days Active gabapentin (Neurontin) 600 MG tablet Take 1 (one) tablet by mouth at bedtime Active metFORMIN (Glucophage) 500 MG tablet Take 1 (one) tablet by mouth 4 times daily Active traZODone (Desyrel) 100 MG tablet Take 1.5 (one and one-half) tablets by mouth at bedtime Active DULoxetine (Cymbalta) 60 MG capsule Take 1 (one) capsule by mouth at bedtime Active aspirin (Aspirin) 81 MG chew tablet Take 1 (one) tablet by mouth once daily 30 tablet 1 4 Active insulin aspart (NovoLOG) pen Inject 0 (zero) Units to 6 (six) Units subcutaneously 3 times daily with meals 3 mL 1 4 Active Active Problems Problem Noted Date Diagnosed Date Blue toe syndrome, left 11/15/2023 Social History Tobacco Use Types Packs/Day Years Used Date Smoking Tobacco: Never Assessed AUDIT-C Answer Date Recorded Q1: How often do you have a drink containing alcohol? Never 11/16/2023 Q2: How many drinks containi ng alcohol do you have on a typical day when you are drinking? Patient does not drink Q3: How often do you have si x or more drinks on one occasion? Never 11/16/2023 Overall Financial Resource Strain (CARDIA) Answe r Date Recorded How hard is it for you to pa y for the very basics like food, housing, medical care, and heating? Not hard at all 11/16/2023 [facility] - Occupational Stress Questionnaire Answer Date Recorded Do you feel stress - tense, restless, nervous, or anxious, or unable to sleep at night because your mind is troubled all the time - these days? Not at all 11/16/2023 Hunger Vital Sign Answer Date Recorded Within the past 12 months, y ou worried that your food would run out before you got the money to buy more. Never true 11/17/19 24 Within the past 12 months, t he food you bought just didn't last and you didn't have money to get more. Never true 11/17/2023 PRAPARE - Transportation Answer Date Re corded In the past 12 months, has l ack of transportation kept you from medical appointments or from getting medications? No 11/04 In the past 12 months, has l ack of transportation kept you from meetings, work, or from getting things needed for daily living? No 11/16/2023 Housing Stability Vital Sign Answer Freddy e Recorded In the last 12 months, was t here a time when you were not able to pay the mortgage or rent on time? No 11/16/2023 In the last 12 months, how many places have you lived? 1 11/16/2023 In the last 12 months, was t here a time when you did not have a steady place to sleep or slept in a skilled nursing (including now)? No 11/16/2023 Sex and Gender Information Value Date Recorded Sex Assigned at Not on file Legal Sex Male 9:46 AM CDT Gender Identity Not on file Sexual Orientation Not on file Last Filed Vital Signs Vital Sign Reading Time Taken Comments Blood Pressure 130/77 11/18/2023 11:26 AM CDT Pulse 92 11/18/2023 11:26 AM CDT Temperature 36.6 C (97.8 F) 11/18/2023 11:26 AM CDT Respiratory Rate 20 11/18/2023 11:26 AM CDT Oxygen Saturation 95% 11/18/2023 11:26 AM CDT Inhaled Oxygen Concentration - - Weight 122.9 kg (271 lb) 11/16/2023 1:00 AM CDT Height 170.2 cm (5' 7) 11/16/2023 1:00 AM CDT Body Mass Index 42.44 11/16/2023 1:00 AM CDT Plan of Treatment Health Maintenance Due Date Last Done Comments COLOGUARD (AGES 45-75) - COL ON CA SCREENING 1962 COLON MONITORING 1962 COLONOSCOPY - COLON CA SCREENING 1962 CT COLONOGRAPHY - COLON CA SCREENING 1962 Colorectal Cancer Screening 1962 FIT - COLON CA SCREENING 1962 FLEX SIG - COLON CA SCREENING 1962 MEDICARE AWV 12 MONTHS 1962 HIV SCREENING 1977 HEPATITIS C SCREENING 09/11/1980 DTAP/TDAP/TD VACCINES (1 - Tdap) 1981 PNEUMOCOCCAL VACCINE 50+ (1 of 1 - PCV) 2012 ZOSTER VACCINE (1 of 2) 2012 Respiratory Syncytial Virus (RSV) Vaccine Pt: or over 60 yrs (1 - Risk 60-74 years 1-dose series) 2022 LIPID TESTING 10/13/2022 10/13/2017 COVID-19 VACCINE (1 - 2023-2 5 season) 2024 DEPRESSION SCREENING 07/07/2024 INFLUENZA VACCINE (Season Ended) 2025 HEPATITIS B VACCINE Aged Out No longe r eligible based on patient's age to complete this topic HIB VACCINE Aged Out No longer eligi ble based on patient's age to complete this topic HPV VACCINE Aged Out No longer eligi ble based on patient's age to complete this topic MENINGOCOCCAL (Group B) VACC INE SHARED DECISION-MAKING Aged Out No longer eligibl e based on patient's age to complete this topic MENINGOCOCCAL GROUPS A/C/Y/W VACCINE Aged Out No longer eligible b ased on patient's age to complete this topic [place] [address] Advance Directives * Full Code (Latest Code Status on File) Date Activated Date Inactivated Comments 11/16/2023 1:25 AM 11/18/2023 3:22 PM Care Teams Neurologist Relationship Specialty Start Date End Date Elias Montalvo MD [address] [place] [phone] PCP - General Family Medicine 11/17/23
[2024-12-09 13:36] LABS: Alanine Aminotransferase 16 U/L (6-50); Albumin Level 3.8 g/dL (3.5-5.1); Alkaline Phosphatase 87 U/L (38-126); Anion Gap 9 mmol/L (4-12); Aspartate Amino Transferase 23 U/L (17-59); Bilirubin,Total 0.4 mg/dL (0.2-1.3); Blood Urea Nitrogen 20 mg/dL (9-20); Calcium 9.1 mg/dL (8.4-10.2); Carbon Dioxide 28 mmol/L (22-30); Chloride 97 mmol/L (98-107); Estimated Glomerular Filt Rate 49; Glucose 423 mg/dL (65-110); Potassium 5.2 mmol/L (3.4-5.0); Sodium 134 mmol/L (137-145); Total Protein 6.8 g/dL (6.3-8.2)
[2024-12-09 14:25] LABS: Hemoglobin A1C 10.8 % (<5.7)
[2024-12-09 14:32] LABS: Prostate Specific Antigen 0.7 ng/mL (< OR = 4.0)
== END 2024-12-09 12:32 | disposition home or self-care (01) ==
PROVIDERS: PCP Family Medicine; Visit Provider Nurse Practitioner Family
DX: Z12.5 Encounter for screening for malignant neoplasm of prostate (principal); D64.9 Anemia, unspecified; I11.0 Hypertensive heart disease with heart failure; I50.9 Heart failure, unspecified; E11.8 Type 2 diabetes mellitus with unspecified complications
CPT/HCPCS: 36415; 80053; 83036; 84153; 85025; G0103